=== PATIENT | male | born 1980 | race Caucasian/White ===

== ENCOUNTER 2018-09-14 22:26 | Inpatient (IN) ==
[2018-09-14] MEDS ORDERED: ceFAZolin 2 GM Premix Inj 2 GM/50 ML PIGGYBACK IV.SIG ONE (22:29)
[2018-09-14] MEDS ORDERED: Diphtheria/Tetanus/Pertussis Vaccine Inj 0.5 ML Syringe IM ONE (22:30)
[2018-09-14] MEDS ORDERED: Gentamicin/NS 80 mg Premix 100 ML IV.SIG ONE (22:30)
[2018-09-14] MEDS ORDERED: Propofol 1000 mg/100 ml Inj 1,000 MG/100 ML BOTTLE ONE (22:44)
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
--- NOTE | 2018-09-14 23:03 | ED ---
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 Ratio APTT (23.4-31.7) sec Puncture Site Left brachial Patient Temperature 98.6 O2 Saturation 96 (90-100) % ABG pH 7.43 H (7.380-7.420) ABG pCO2 35 L (38-42) mmHg ABG pO2 118 (61-120) mmHg ABG HCO3 23 (22-26) mmol/L ABG O2 Content 15.1 (12.0-20.0) Vol % ABG Base Excess -0.8 (-2-2) mmol/L ABG Methemoglobin 1.2 (0-2) % Humphrey Test Hemoglobin 11.0 L (12.0-16.0) G/DL Carboxyhemoglobin 1.5 (0-4) % O2 Delivery Device Ventilator Vent Setting 16/550/peep10/it1.0 Inspired O2 40 % Critical Value No POC Sodium (137-144) mmol/L Sodium 144 (136-145) meq/L POC Potassium (3.6-5.0) mmol/L Potassium 3.1 L (3.5-5.1) meq/L POC Chloride Chloride 110 H (98-107) meq/L Carbon Dioxide 24.8 (21.0-32.0) meq/L Anion Gap 9 (5-15) meq/L POC BUN (5-21) mg/dL BUN 10 (7-18) mg/dL Creatinine 0.69 (0.60-1.30) mg/dL POC Creatinine (0.6-1.3) mg/dL Estimated GFR Greater than 89 (>89) mL/min POC Glucose (68-110) mg/dL Random Glucose 113 H (74-106) mg/dL Calcium 8.4 L (8.5-10.1) mg/dL Calcium Adj for Albumin (8.5-10.1) mg/dL Magnesium 2.3 (1.5-2.5) mg/dL Total Bilirubin 0.9 (0.2-1.0) mg/dL AST 59 H (15-37) U/L ALT 47 (12-78) U/L Alkaline Phosphatase 93 (45-117) U/L Total Protein 6.1 L D (6.4-8.2) g/dL Albumin 2.1 L (3.4-5.0) g/dL Nasal Screen MRSA (PCR) (Negative) Blood Type Blood Type Recheck Antibody Screen MTS Gel Crossmatch Imaging Data Radiologist's impression: Ankle CT 09/14/18 00:00 CONCLUSION: 1. Comminuted and displaced oblique fracture of the distal fibular diaphysis. 2. Minimally displaced and impacted fracture of the distal process of the calcaneus with extension of the fracture into the calcaneocuboid joint. 3. Asymmetric widening of the tibiotalar joint suggesting partial talar dislocation. Chest X-Ray 09/14/18 00:00 CONCLUSION: No acute cardiopulmonary abnormality is identified. Elbow CT 09/14/18 00:00 CONCLUSION: 1. Comminuted displaced fracture of the proximal ulna involving both the olecranon and coronoid region. 2. Dislocated radial head. Humerus X-Ray 09/14/18 00:00 CONCLUSION: Comminuted displaced fractures of the proximal radius and ulna with surrounding soft tissue swelling. Knee CT 09/14/18 00:00 CONCLUSION: 1. No fracture is identified. 2. There is soft tissue wound/laceration along the lateral aspect of the knee with subcutaneous air. Pelvis X-Ray 09/14/18 00:00 CONCLUSION: Comminuted displaced right acetabular fracture with superior and lateral dislocation of the femoral head. Chest X-Ray 09/14/18 22:29 CONCLUSION: No acute cardiopulmonary abnormality is identified. Hip X-Ray 09/14/18 22:29 CONCLUSION: Comminuted displaced right acetabular fracture with superior and lateral migration/dislocation of the femoral head. Abdomen/Pelvis CT 09/14/18 22:55 CONCLUSION: 1. There is a small volume of acute blood products within the ileal mesentery, within the paracolic gutters, and in the dependent aspect of the pelvis. Exact etiology is uncertain and no solid organ injury. Given the blood products in the mesentery there is concern for mesenteric vascular injury although none is directly visualized. Suggest close clinical follow-up and consider follow-up abdomen and pelvis CT to evaluate for increased blood products. 2. Comminuted displaced fracture of the right superior and posterior acetabulum with superior dislocation of the femoral head. 3. Mildly displaced right lateral 10th rib fracture. Cervical Spine CT 09/14/18 22:56 CONCLUSION: 1. Possible nondisplaced fracture of the right anterior medial occipital condyle. 2. No other fracture or acute cervical spine abnormality is identified. 3. Ovoid rim calcified lesion in the left inferior neck most likely represents a rim calcified thyroid nodule. When patient condition permits suggest elective thyroid ultrasound for further evaluation. Chest CT 09/14/18 22:56 CONCLUSION: 1. Patchy airspace consolidation in the right upper lobe could represent pulmonary contusion. 2. There are nondisplaced right anterior sixth and seventh rib fractures. A few locules of pleural air are located inferiorly in the right pleural space. However, there is no significant pneumothorax. Head CT 09/14/18 22:56 CONCLUSION: No acute abnormality is identified. . Ankle X-Ray 09/15/18 00:00 CONCLUSION: No fracture is identified. There is dorsal foot soft tissue swelling. Ankle X-Ray 09/15/18 00:00 CONCLUSION: Acute displaced comminuted distal fibular diaphysis fracture, as above. The widening of the tibiotalar joint is no longer present. Ankle X-Ray 09/15/18 00:00 CONCLUSION: Transverse fracture of the distal diaphyseal portion of the fibula. There is only mildly displaced. Foot X-Ray 09/15/18 00:00 CONCLUSION: Comminuted mildly displaced fracture of the first digit distal phalanx with fracture line extension into the interphalangeal joint. Foot X-Ray 09/15/18 00:00 CONCLUSION: The calcaneus fracture documented on prior CT is not visible on this examination. No acute osseous abnormality is seen on this exam. Hip X-Ray 09/15/18 00:00 CONCLUSION: Relocation of the right femoral head. Fracture of the right acetabulum. Knee X-Ray 09/15/18 00:00 CONCLUSION: No fracture is identified. Chest X-Ray 09/15/18 06:37 CONCLUSION: ETT in good position Moderate gastric distention without nasogastric tube Pelvis X-Ray 09/17/18 00:00 CONCLUSION: Reasonable alignment in traction. Chest X-Ray 09/18/18 00:00 CONCLUSION: 1. ETT in good position. NGT beyond the GE junction. 2. Mild diffuse interstitial edema with patchy airspace disease in the right mid to lower lung zones. Hip X-Ray 09/18/18 00:00 CONCLUSION: Intraoperative spot images showing right acetabular fracture. Ankle X-Ray 09/19/18 00:00 CONCLUSION: Anatomic alignment in fiberglass. Pelvis X-Ray 09/19/18 00:00 CONCLUSION: Intraoperative images of the pelvis demonstrating internal fixation hardware at the acetabulum. Chest X-Ray 09/19/18 06:00 CONCLUSION: 1. Stable ETT and NGT. 2. Stable interstitial prominence with patchy medial bilateral upper lobe and right mid to lower lung zone airspace opacities. Chest X-Ray 09/19/18 16:50 CONCLUSION: 1. Left subclavian central venous catheter now in place with tip in the distal SVC. No evidence of pneumothorax. 2. New prominent left lower lobe consolidation versus atelectasis. Discharge Plan Discharge Disposition Patient Disposition: ED Admit(ED Internal Use Only) Discharge Order Discharge Orders: ED Use Only Admit Order (Routine); Ordered 09/14/18 Ordered By: Jorge Luis Castillo Physicians Team ED Provider: Jorge Luis Castillo Primary Care Provider: UNKNOWN, Attending Provider: Chris Lorenzo Other Providers: Steve Grant ; Sher Nicolas ; Chris Lorenzo ; Systems[employer] ; Brayan Billings ; Marizol Samaniego ; Smith Jaiems ; Lakshmi Saucedo ; Swathi Morales ; Lonnie Payne ; Hernesto Lee ; Jaymie Coughlin ; Michael Hearn ; Luciano De La Cruz Status ED Status: Left Department Discharge Information Discharge Date/Time: 09/15/18 04:57
[2018-09-14] MEDS ORDERED: fentaNYL Citrate Inj 100 MCG/2 ML Ampul ONE (23:04)
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
[2018-09-14 23:10] LABS: Baso # (Auto) 0.1 th/mm3 (0.0-0.2); Baso % (Auto) 0.4 % (0.0-2.0); Eos # (Auto) 0.1 th/mm3 (0.0-0.4); Eos % (Auto) 0.5 % (0.0-4.0); Hematocrit 40.4 % (39.0-51.0); Hemoglobin 13.6 gm/dL (13.0-17.0); Lymph # (Auto) 6.7 th/mm3 (1.0-4.8); Mean Corpuscular HGB Conc 33.6 % (32.0-36.0); Mean Corpuscular Hemoglobin 32.5 pg (27.0-34.0); Mean Corpuscular Volume 96.8 fL (80.0-100.0); Mean Platelet Volume 7.2 fL (7.0-11.0); Mono # (Auto) 0.8 th/mm3 (0.0-0.9); Mono % (Auto) 4.1 % (0.0-8.0); Platelet Count 368 th/mm3 (150-450); Red Blood Count 4.18 mil/mm3 (4.50-5.90); Red Cell Distribution Width 14.5 % (11.6-17.2); White Blood Count 19.8 th/mm3 (4.0-11.0)
[2018-09-14 23:43] LABS: Activated Partial Thrombo Time 21.6 sec (23.4-31.7); INR 1.1 Ratio; Prothrombin Time 10.7 sec (9.8-11.6)
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
[2018-09-15 00:21] LABS: Eosinophils 1 % (0-4); Lymphocytes 43 % (9-44); Monocytes 2 % (0-8); Platelet Estimate Normal (Normal); Platelet Morphology Normal (Normal)
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
[2018-09-15] MEDS: fentaNYL 10 mcg/mL Premix Drip 2,500 MCG/250 ML BAG IV.SIG PRN ×3 (01:00→22:48)
[2018-09-15] MEDS ORDERED: Propofol 1000 mg/100 ml Inj 1,000 MG/100 ML BOTTLE IV.CONT PRN (02:13)
[2018-09-15 02:27] LABS: ABG Base Excess -7.5 mmol/L (-2-2); ABG PCO2 40 mmHg (38-42); ABG PO2 454 mmHg (61-120)
[2018-09-15] MEDS: Midazolam 100 MG/100 ML Inj 100 MG/100 ML BAG IV.CONT PRN ×3 (03:21→22:52)
--- NOTE | 2018-09-15 03:53 | XR ---
EXAM DATE: 09/15/2018 3:46 AM EST AGE/SEX: 89 years / Male INDICATIONS: Right ankle pain and swelling. CLINICAL DATA: This is the patient's subsequent encounter. Patient reports that signs and symptoms h ave been present for 2 days and indicates a pain score of Nonresponsive. MEDICAL/SURGICAL HISTORY: Non-responsive. Non-responsive. COMPARISON: [facility] – [place], [place] ANKLE RIGHT W CONTRAST, 09/14/2018. . FINDINGS: AP and lateral views of the right ankle with overlying casting material in place demonstrate a commin uted mildly displaced fracture of the distal radial diaphysis with 3 mm medial displacement and 10 mm of posterior displacement of the distal fragment. The calcaneus fracture documented on the CT is not visible on this examination. Ankle mortise appears intact without widening of the tibiotalar joint. CONCLUSION: Acute displaced comminuted distal fibular diaphysis fracture, as above. The widening of the tibiotala r joint is no longer present. Electronically signed by: Oscar Zhang MD Board Certified Radiologist 09/15/2018 3:52 AM EST
--- NOTE | 2018-09-15 03:55 | XR ---
EXAM DATE: 09/15/2018 3:42 AM EST AGE/SEX: 89 years / Male INDICATIONS: Right foot pain and swelling. CLINICAL DATA: This is the patient's subsequent encounter. Patient reports that signs and symptoms h ave been present for 2 days and indicates a pain score of Nonresponsive. MEDICAL/SURGICAL HISTORY: Non-responsive. Non-responsive. COMPARISON: [facility] – [place], CT ANKLE RIGHT W CONTRAST, 09/14/2018. . FINDINGS: 4 views of the right foot with overlying casting material in place demonstrates no visible acute frac ture or dislocation. The calcaneus fracture documented on CT is not visible on this examination. Ther e are osteophytes at the tarsometatarsal joints. No radiopaque foreign body is identified. CONCLUSION: The calcaneus fracture documented on prior CT is not visible on this examination. No acute osseous ab normality is seen on this exam. Electronically signed by: Oscar Zhang MD Board Certified Radiologist 09/15/2018 3:54 AM EST
--- NOTE | 2018-09-15 03:56 | XR ---
EXAM DATE: 09/15/2018 3:47 AM EST AGE/SEX: 89 years / Male INDICATIONS: Left ankle pain and swelling. CLINICAL DATA: This is the patient's subsequent encounter. Patient reports that signs and symptoms h ave been present for 2 days and indicates a pain score of Nonresponsive. MEDICAL/SURGICAL HISTORY: Non-responsive. Non-responsive. COMPARISON: No prior studies are available for comparison. FINDINGS: 2 views of the left ankle demonstrate no fracture or dislocation. Ankle mortise is intact. There are sclerotic foci in the talus and calcaneus. There is a dorsal foot soft tissue swelling. No radiopaque foreign body is identified. CONCLUSION: No fracture is identified. There is dorsal foot soft tissue swelling. Electronically signed by: Oscar Zhang MD Board Certified Radiologist 09/15/2018 3:55 AM EST
--- NOTE | 2018-09-15 03:58 | XR ---
EXAM DATE: 09/15/2018 3:44 AM EST AGE/SEX: 89 years / Male INDICATIONS: Left foot pain and swelling. CLINICAL DATA: This is the patient's subsequent encounter. Patient reports that signs and symptoms h ave been present for 2 days and indicates a pain score of Nonresponsive. MEDICAL/SURGICAL HISTORY: Non-responsive. Non-responsive. COMPARISON: No prior exams available for comparison. FINDINGS: 2 views of the left foot demonstrate a comminuted mildly displaced fracture of the first digit distal phalanx involving the proximal metaphysis and epiphysis. Fracture line extends into the interphalang eal joint. There is surrounding soft tissue swelling. No other fracture or dislocation is identified. The sclerotic foci are present within the talus and calcaneus. There is dorsal foot soft tissue swel ling. CONCLUSION: Comminuted mildly displaced fracture of the first digit distal phalanx with fracture line extension i nto the interphalangeal joint. Electronically signed by: Oscar Zhang MD Board Certified Radiologist 09/15/2018 3:56 AM EST
--- NOTE | 2018-09-15 03:59 | XR ---
EXAM DATE: 09/15/2018 3:40 AM EST AGE/SEX: 89 years / Male INDICATIONS: Right knee pain. CLINICAL DATA: This is the patient's subsequent encounter. Patient reports that signs and symptoms h ave been present for 2 days and indicates a pain score of Nonresponsive. MEDICAL/SURGICAL HISTORY: Non-responsive. Non-responsive. [place] [facility] [place]/2018. . FINDINGS: AP and lateral views of the right knee demonstrate no acute fracture or dislocation. No joint effusio n is identified. There is a benign-appearing sclerotic focus within the lateral femoral condyle. No s oft tissue abnormality is appreciated. There is no radiopaque foreign body. CONCLUSION: No fracture is identified. Electronically signed by: Oscar Zhang MD Board Certified Radiologist 09/15/2018 3:58 AM EST
[2018-09-15] MEDS ORDERED: Vasopressin Inj 40 UNIT in Sodium Chlor 0.9% Inj 98 ML IV.CONT PRN (05:34)
[2018-09-15 05:52] LABS: Baso % (Auto) 0.2 % (0.0-2.0); Hematocrit 32.4 % (39.0-51.0); Hemoglobin 10.9 gm/dL (13.0-17.0); Lymph # (Auto) 2.8 th/mm3 (1.0-4.8); Lymph % (Auto) 20.5 % (9.0-44.0); Mean Corpuscular HGB Conc 33.6 % (32.0-36.0); Mean Corpuscular Hemoglobin 32.8 pg (27.0-34.0); Mean Corpuscular Volume 97.4 fL (80.0-100.0); Mean Platelet Volume 7.2 fL (7.0-11.0); Mono # (Auto) 1.9 th/mm3 (0.0-0.9); Mono % (Auto) 13.6 % (0.0-8.0); Neut # (Auto) 9.1 th/mm3 (1.8-7.7); Neut % (Auto) 65.7 % (16.0-70.0); Platelet Count 294 th/mm3 (150-450); Red Blood Count 3.32 mil/mm3 (4.50-5.90); Red Cell Distribution Width 14.6 % (11.6-17.2); White Blood Count 13.8 th/mm3 (4.0-11.0)
[2018-09-15 06:15] LABS: Calcium 7.5 mg/dL (8.5-10.1); Carbon Dioxide 16.1 meq/L (21.0-32.0)
[2018-09-15] MEDS ORDERED: Acetaminophen 325 MG Tablet PO PRN (06:31)
[2018-09-15] MEDS ORDERED: Sod Chloride 0.9% Inj 1,000 ML IV.CONT SCH (06:45)
--- NOTE | 2018-09-15 07:36 | XR ---
EXAM DATE: 09/15/2018 7:33 AM EST AGE/SEX: 89 years / Male INDICATIONS: Shortness of breath. CLINICAL DATA: This is the patient's subsequent encounter. Patient reports that signs and symptoms h ave been present for 1 day and indicates a pain score of Nonresponsive. MEDICAL/SURGICAL HISTORY: Non-responsive. Non-responsive. COMPARISON: [facility], CHEST 1V SINGLE AP, 09/14/2018. . FINDINGS: ET tube is in good position. There is no nasogastric tube. Moderate gastric distention is evident. Th e lungs are clear. There is no pneumothorax. There is no obvious displaced fracture. CONCLUSION: ETT in good position Moderate gastric distention without nasogastric tube Electronically signed by: Rick Valladares MD Board Certified Radiologist 09/15/2018 7:35 AM EST
[2018-09-15] MEDS ORDERED: ceFAZolin 2 GM IV; once IV.SIG SCH (09:00)
[2018-09-15] MEDS ORDERED: Post-op Orders (for Pharmacy) OTHER STA (09:05)
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
[2018-09-15] MEDS ORDERED: fentaNYL Citrate Inj 100 MCG/2 ML Ampul ONE (09:44)
[2018-09-15] MEDS ORDERED: ceFAZolin Inj 2,000 MG in Sodium Chlor 0.9% Inj 80 ML IV.SIG SCH (10:00)
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
[2018-09-15 11:25] LABS: Hematocrit 27.1 % (39.0-51.0); Hemoglobin 9.3 gm/dL (13.0-17.0)
[2018-09-15] MEDS: Oral Hygiene Kit OROPHARYNG SCH ×2 (12:00→18:05)
[2018-09-15 12:20] LABS: Calcium 6.5 mg/dL (8.5-10.1); Carbon Dioxide 17.5 meq/L (21.0-32.0); Potassium 3.7 meq/L (3.5-5.1)
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
[2018-09-15 12:30] LABS: Albumin 2.4 g/dL (3.4-5.0); Calcium-Albumin Corrected 7.8 mg/dL (8.5-10.1)
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
[2018-09-15] MEDS: Gentamicin/NS 80 mg Premix 100 ML IV.SIG SCH ×2 (13:54→18:04)
[2018-09-15] MEDS: Chlorhexidine 0.12% Oral Kit 15 ML UDC OROPHARYNG SCH ×2 (15:41→20:55)
[2018-09-15] MEDS: Multivitamin Inj 10 ML, Thiamine Inj 100 MG, Folic Acid Inj 1 MG in Sodium Chlor 0.9% I... IV.SIG SCH (15:42)
[2018-09-15] MEDS: Senna/Docusate Sodium 8.6/50 MG Tablet PO SCH ×2 (15:42→20:55)
[2018-09-15] MEDS ORDERED: Sodium Phosphate Inj 30 MMOL in Sodium Chlor 0.9% Inj 250 ML IV.SIG PRN (16:09)
[2018-09-15] MEDS ORDERED: Magnesium Sulfate Inj 2 GM in Sodium Chlor 0.9% Inj 96 ML IV.SIG PRN (16:09)
[2018-09-15] MEDS ORDERED: Potassium Phosphate 500 MG Soluble Tablet PO PRN ×2 (16:09)
[2018-09-15] MEDS ORDERED: Potassium Phosphate Inj 30 MMOL in Sodium Chlor 0.9% Inj 250 ML IV.SIG PRN (16:09)
[2018-09-15] MEDS ORDERED: Magnesium Sulfate Inj 4 GM in Sodium Chlor 0.9% Inj 92 ML IV.SIG PRN (16:09)
[2018-09-15] MEDS ORDERED: Potassium Chloride Liq 20 MEQ/15 ML UDC PO PRN ×2 (16:09)
[2018-09-15] MEDS ORDERED: Magnesium Oxide 400 MG Tablet PO PRN (16:09)
[2018-09-15] MEDS ORDERED: Potassium Chlor 40 mEq Premix 40 MEQ/100 ML PIGGYBACK IV.SIG PRN (16:09)
[2018-09-15] MEDS ORDERED: Potassium Chlor 20 mEq Premix 20 MEQ/100 ML PIGGYBACK IV.SIG PRN (16:09)
[2018-09-15] MEDS: ceFAZolin 2 GM Premix Inj 2 GM/50 ML PIGGYBACK IV.SIG SCH (18:05)
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
[2018-09-16] MEDS: ceFAZolin 2 GM Premix Inj 2 GM/50 ML PIGGYBACK IV.SIG SCH ×3 (00:57→17:01)
[2018-09-16] MEDS: Gentamicin/NS 80 mg Premix 100 ML IV.SIG SCH ×2 (00:58→08:44)
[2018-09-16] MEDS: Oral Hygiene Kit OROPHARYNG SCH ×4 (00:59→16:21)
[2018-09-16] MEDS: Chlorhexidine Gluconate 2% 1 Pack (2 Cloths) TOPICAL SCH (03:00)
[2018-09-16] MEDS ORDERED: Chlorhexidine Gluconate 2% 1 Pack (2 Cloths) TOPICAL PRN (04:00)
--- NOTE | 2018-09-16 06:46 | P.PNOP ---
Subjective Interval history: POD 1 s/p application of skeletal traction right acetabulum POD 1 s/p I&D right knee s/p right ankle injury intubated/sedated Physical Exam Vital signs: Vital Signs 09/15/18 07:23 09/15/18 07:43 09/15/18 08:00 Temperature Pulse Rate 112 H Respiratory Rate 18 18 Blood Pressure Pulse Oximetry 100 100 100 09/15/18 11:06 09/15/18 14:42 09/15/18 14:47 Temperature Pulse Rate 95 H 98 H 99 H Respiratory Rate 18 18 18 Blood Pressure 90/58 L 78/57 L Pulse Oximetry 100 100 100 09/15/18 14:52 09/15/18 14:57 09/15/18 14:59 Temperature Pulse Rate 98 H 97 H 98 H Respiratory Rate 18 18 18 Blood Pressure 86/57 L 79/53 L 83/57 L Pulse Oximetry 100 100 100 09/15/18 15:00 09/15/18 15:02 09/15/18 15:07 Temperature Pulse Rate 97 H 99 H 99 H Respiratory Rate 18 18 18 Blood Pressure 84/55 L 85/51 L Pulse Oximetry 100 100 100 09/15/18 15:12 09/15/18 15:16 09/15/18 15:17 Temperature Pulse Rate 110 H 106 H 107 H Respiratory Rate 18 17 17 Blood Pressure 117/57 L 115/58 L Pulse Oximetry 100 100 100 09/15/18 15:22 09/15/18 15:27 09/15/18 15:32 Temperature Pulse Rate 102 H 104 H 102 H Respiratory Rate 18 18 18 Blood Pressure 90/59 L 90/60 L 92/65 L Pulse Oximetry 100 100 100 09/15/18 15:37 09/15/18 15:42 09/15/18 15:47 Temperature Pulse Rate 101 H 102 H 103 H Respiratory Rate 18 18 18 Blood Pressure 104/66 99/61 L 96/63 L Pulse Oximetry 100 100 100 09/15/18 15:52 09/15/18 15:57 09/15/18 16:00 Temperature Pulse Rate 101 H 98 H 97 H Respiratory Rate 18 18 18 Blood Pressure 94/63 L 87/57 L Pulse Oximetry 100 100 100 09/15/18 16:02 09/15/18 16:07 09/15/18 16:12 Temperature Pulse Rate 94 H 98 H 95 H Respiratory Rate 18 18 18 Blood Pressure 102/65 97/57 L 98/62 L Pulse Oximetry 100 100 100 09/15/18 16:17 09/15/18 16:22 09/15/18 16:27 Temperature Pulse Rate 97 H 97 H 99 H Respiratory Rate 18 18 18 Blood Pressure 97/61 L 96/64 L 95/65 L Pulse Oximetry 100 100 100 09/15/18 16:32 09/15/18 16:37 09/15/18 16:42 Temperature 98.7 F Pulse Rate 99 H 99 H 99 H Respiratory Rate 18 18 18 Blood Pressure 98/64 L 94/55 L 102/61 Pulse Oximetry 100 100 100 09/15/18 16:47 09/15/18 16:52 09/15/18 16:57 Temperature Pulse Rate 100 H 101 H 105 H Respiratory Rate 18 18 18 Blood Pressure 100/59 L 93/53 L 91/54 L Pulse Oximetry 100 100 100 09/15/18 17:00 09/15/18 17:02 09/15/18 17:07 Temperature Pulse Rate 103 H 104 H 103 H Respiratory Rate 18 18 18 Blood Pressure 91/55 L 93/58 L Pulse Oximetry 100 100 100 09/15/18 17:12 09/15/18 17:17 09/15/18 17:19 Temperature Pulse Rate 101 H 100 H 98 H Respiratory Rate 18 18 18 Blood Pressure 94/54 L 82/52 L 85/52 L Pulse Oximetry 100 100 100 09/15/18 17:22 09/15/18 17:27 09/15/18 17:32 Temperature Pulse Rate 99 H 99 H 98 H Respiratory Rate 18 18 18 Blood Pressure 87/54 L 87/54 L 89/50 L Pulse Oximetry 100 100 100 09/15/18 17:37 09/15/18 17:42 09/15/18 17:47 Temperature Pulse Rate 100 H 99 H 99 H Respiratory Rate 18 18 18 Blood Pressure 91/53 L 102/57 L 93/55 L Pulse Oximetry 100 100 100 09/15/18 17:52 09/15/18 18:00 09/15/18 20:00 Temperature 99.5 F Pulse Rate 99 H 96 H Respiratory Rate 18 Blood Pressure 87/51 L 88/51 L Pulse Oximetry 100 09/15/18 20:21 09/15/18 20:25 09/15/18 23:24 Temperature Pulse Rate 97 H Respiratory Rate 18 19 18 Blood Pressure Pulse Oximetry 100 100 09/15/18 23:27 09/16/18 03:11 09/16/18 03:13 Temperature Pulse Rate 95 H 97 H Respiratory Rate 18 18 18 Blood Pressure Pulse Oximetry 100 09/16/18 04:07 09/16/18 04:12 09/16/18 04:17 Temperature 98.5 F Pulse Rate 100 H 101 H 99 H Respiratory Rate 18 18 18 Blood Pressure 112/62 104/59 L 104/59 L Pulse Oximetry 100 100 100 09/16/18 04:22 09/16/18 04:27 09/16/18 04:32 Temperature Pulse Rate 99 H 99 H 100 H Respiratory Rate 18 18 18 Blood Pressure 105/61 108/63 103/61 Pulse Oximetry 100 100 100 09/16/18 04:37 09/16/18 04:42 09/16/18 04:47 Temperature Pulse Rate 101 H 105 H 104 H Respiratory Rate 18 18 18 Blood Pressure 106/64 97/60 L 97/59 L Pulse Oximetry 100 100 100 09/16/18 04:52 09/16/18 04:57 09/16/18 05:00 Temperature Pulse Rate 101 H 108 H 102 H Respiratory Rate 18 18 18 Blood Pressure 103/63 102/67 Pulse Oximetry 100 100 100 09/16/18 05:02 09/16/18 05:07 09/16/18 05:12 Temperature Pulse Rate 104 H 105 H 101 H Respiratory Rate 18 18 18 Blood Pressure 103/66 99/61 L 98/62 L Pulse Oximetry 100 100 100 09/16/18 05:17 09/16/18 05:22 09/16/18 05:27 Temperature Pulse Rate 102 H 100 H 104 H Respiratory Rate 18 18 18 Blood Pressure 101/67 115/76 114/59 L Pulse Oximetry 100 100 100 09/16/18 05:32 09/16/18 05:37 09/16/18 05:42 Temperature Pulse Rate 103 H 100 H 99 H Respiratory Rate 18 18 18 Blood Pressure 104/61 109/62 110/63 Pulse Oximetry 100 100 100 09/16/18 05:47 09/16/18 05:52 09/16/18 05:57 Temperature Pulse Rate 98 H 98 H 98 H Respiratory Rate 18 18 18 Blood Pressure 106/64 105/65 107/66 Pulse Oximetry 100 100 100 09/16/18 06:00 09/16/18 06:02 Temperature Pulse Rate 99 H 99 H Respiratory Rate 18 18 Blood Pressure 106/66 Pulse Oximetry 100 100 Intake & Output 09/15/18 09/15/18 09/16/18 06:59 18:59 06:59 Intake Total 150 / 150 2050 / 2050 1500 / 1500 Output Total 850 / 850 1150 / 1150 750 / 750 Balance -700 / -700 900 / 900 750 / 750 Weight 83.1 kg Intake: IV 150 / 150 1250 / 1250 1500 / 1500 LR 1000 mL Inj 1,000 ML @ 125 1000 / 1000 1000 / 1000 mls/hr IV.CONT .Q8H APRIL Rx#: [id number] Versed Inj 100 mg In 100 ml @ 2 100 / 100 100 / 100 MG/HR 2 mls/hr IV.CONT TITRATE PRN Rx#:[id number] Gentamicin/NS 80 mg Premix 100 100 / 100 100 / 100 100 / 100 ML @ 200 mls/hr IV.SIG Q8H APRIL Rx#:[id number] Ancef 2 GM Premix Inj 2 gm In 50 / 50 50 / 50 50 / 50 50 ml @ 100 mls/hr IV.SIG Q8H APRIL Rx#:[id number] fentaNYL 10 mcg/mL Premix Drip 250 / 250 2,500 mcg In 250 ml @ 50 MCG/HR 5 mls/hr IV.SIG TITRATE PRN Rx #:[id number] Oral 0 / 0 0 / 0 0 / 0 Anesthesia Amount 800 / 800 Output: Estimated Blood Loss 100 / 100 Urine Amount (Catheter) 850 / 850 850 / 850 650 / 650 Indwelling Urethral Catheter 850 / 850 850 / 850 650 / 650 Gastric Drainage 200 / 200 100 / 100 Orogastric Tube 200 / 200 100 / 100 Other: Weight On Admission 83.1 kg Narrative: RLE: +skeletal traction. pin sites clean. +short leg splint. intact RUE: +long arm splint. intact - Urinary Catheter Management Indwelling Urethral Catheter Cath placed during this visit: yes Reason for continuing: Hourly intake/output Insertion date: 09/14/18 Insertion time: 00:00 Results - Labs CBC & Chem 7: 09/15/18 11:10 09/15/18 11:10 Laboratory Results - last 24 hr 09/15/18 09/15/18 09/15/18 11:10 11:10 16:00 Hgb 9.3 L Hct 27.1 L Sodium 146 H Potassium 3.7 Chloride 117 H Carbon Dioxide 17.5 L Anion Gap 12 BUN 13 Creatinine 1.01 Estimated GFR 64 L Random Glucose 106 Calcium 6.5 L* D Calcium Adj for Albumin 7.8 L Albumin 2.4 L Nasal Screen MRSA (PCR) Not detected - Imaging Impressions Ankle X-Ray 09/15/18 00:00 CONCLUSION: Transverse fracture of the distal diaphyseal portion of the fibula. There is only mildly displaced. Hip X-Ray 09/15/18 00:00 CONCLUSION: Relocation of the right femoral head. Fracture of the right acetabulum. Chest X-Ray 09/15/18 06:37 CONCLUSION: ETT in good position Moderate gastric distention without nasogastric tube Assessment and Plan - Assessment and Plan 1) right acetabular fracture dislocation s/p application of skeletal traction - POD 1 2) comminuted right proximal ulna fracture dislocation 3) right knee laceration s/p I&D and closure - POD 1 4) right fibula fracture with ankle subluxation s/p splinting - nonop 5) right foot cuboid fracture - nonop 6) left foot first toe distal phalanx fracture - nonop -NPO after MN -sign consents -potential surgery tomorrow with Rudy for ORIF right acetabulum if stable enough -patient will need to be stable enough to be placed in lateral position for 2hrs + in order to proceed -will check with trauma team today to make sure patient can handle that positioning at this point -will need definitive surgery on right elbow as well, but will perform after hip is done -maintain splint and dressings on right leg -maintain skeletal traction
[2018-09-16] MEDS: fentaNYL 10 mcg/mL Premix Drip 2,500 MCG/250 ML BAG IV.SIG PRN (07:38)
[2018-09-16] MEDS: Pantoprazole Inj 40 MG Vial IV.PUSH SCH ×2 (07:41→08:45)
[2018-09-16] MEDS: Chlorhexidine 0.12% Oral Kit 15 ML UDC OROPHARYNG SCH (07:42)
[2018-09-16] MEDS ORDERED: Phenylephrine/NS 1000 MCG/10ML Syringe IV.PUSH ONE (08:06)
[2018-09-16] MEDS ORDERED: Neostigmine Inj 5 MG/5 ML Syringe IV.PUSH ONE (08:06)
[2018-09-16] MEDS ORDERED: Sodium Chlor 0.9% Inj 250 ML IV.CONT ONE (08:06)
[2018-09-16] MEDS ORDERED: Lidocaine PF 1% Inj 5 ML Syringe INFILTRATN ONE (08:06)
[2018-09-16] MEDS ORDERED: Glycopyrrolate Inj 1 MG/5 ML Syringe IV.PUSH ONE (08:06)
[2018-09-16] MEDS: Midazolam 100 MG/100 ML Inj 100 MG/100 ML BAG IV.CONT PRN (08:44)
[2018-09-16] MEDS: Senna/Docusate Sodium 8.6/50 MG Tablet PO SCH ×2 (08:44→21:07)
--- NOTE | 2018-09-16 10:00 | P.PNNS ---
Subjective Interval history: intubated, sedated <Linda Michelle - Last Filed: 09/16/18 10:00> Physical Exam Vital signs: Vital Signs 09/15/18 11:06 09/15/18 14:42 09/15/18 14:47 Temperature Pulse Rate 95 H 98 H 99 H Respiratory Rate 18 18 18 Blood Pressure 90/58 L 78/57 L Pulse Oximetry 100 100 100 09/15/18 14:52 09/15/18 14:57 09/15/18 14:59 Temperature Pulse Rate 98 H 97 H 98 H Respiratory Rate 18 18 18 Blood Pressure 86/57 L 79/53 L 83/57 L Pulse Oximetry 100 100 100 09/15/18 15:00 09/15/18 15:02 09/15/18 15:07 Temperature Pulse Rate 97 H 99 H 99 H Respiratory Rate 18 18 18 Blood Pressure 84/55 L 85/51 L Pulse Oximetry 100 100 100 09/15/18 15:12 09/15/18 15:16 09/15/18 15:17 Temperature Pulse Rate 110 H 106 H 107 H Respiratory Rate 18 17 17 Blood Pressure 117/57 L 115/58 L Pulse Oximetry 100 100 100 09/15/18 15:22 09/15/18 15:27 09/15/18 15:32 Temperature Pulse Rate 102 H 104 H 102 H Respiratory Rate 18 18 18 Blood Pressure 90/59 L 90/60 L 92/65 L Pulse Oximetry 100 100 100 09/15/18 15:37 09/15/18 15:42 09/15/18 15:47 Temperature Pulse Rate 101 H 102 H 103 H Respiratory Rate 18 18 18 Blood Pressure 104/66 99/61 L 96/63 L Pulse Oximetry 100 100 100 09/15/18 15:52 09/15/18 15:57 09/15/18 16:00 Temperature Pulse Rate 101 H 98 H 97 H Respiratory Rate 18 18 18 Blood Pressure 94/63 L 87/57 L Pulse Oximetry 100 100 100 09/15/18 16:02 09/15/18 16:07 09/15/18 16:12 Temperature Pulse Rate 94 H 98 H 95 H Respiratory Rate 18 18 18 Blood Pressure 102/65 97/57 L 98/62 L Pulse Oximetry 100 100 100 09/15/18 16:17 09/15/18 16:22 09/15/18 16:27 Temperature Pulse Rate 97 H 97 H 99 H Respiratory Rate 18 18 18 Blood Pressure 97/61 L 96/64 L 95/65 L Pulse Oximetry 100 100 100 09/15/18 16:32 09/15/18 16:37 09/15/18 16:42 Temperature 98.7 F Pulse Rate 99 H 99 H 99 H Respiratory Rate 18 18 18 Blood Pressure 98/64 L 94/55 L 102/61 Pulse Oximetry 100 100 100 09/15/18 16:47 09/15/18 16:52 09/15/18 16:57 Temperature Pulse Rate 100 H 101 H 105 H Respiratory Rate 18 18 18 Blood Pressure 100/59 L 93/53 L 91/54 L Pulse Oximetry 100 100 100 09/15/18 17:00 09/15/18 17:02 09/15/18 17:07 Temperature Pulse Rate 103 H 104 H 103 H Respiratory Rate 18 18 18 Blood Pressure 91/55 L 93/58 L Pulse Oximetry 100 100 100 09/15/18 17:12 09/15/18 17:17 09/15/18 17:19 Temperature Pulse Rate 101 H 100 H 98 H Respiratory Rate 18 18 18 Blood Pressure 94/54 L 82/52 L 85/52 L Pulse Oximetry 100 100 100 09/15/18 17:22 09/15/18 17:27 09/15/18 17:32 Temperature Pulse Rate 99 H 99 H 98 H Respiratory Rate 18 18 18 Blood Pressure 87/54 L 87/54 L 89/50 L Pulse Oximetry 100 100 100 09/15/18 17:37 09/15/18 17:42 09/15/18 17:47 Temperature Pulse Rate 100 H 99 H 99 H Respiratory Rate 18 18 18 Blood Pressure 91/53 L 102/57 L 93/55 L Pulse Oximetry 100 100 100 09/15/18 17:52 09/15/18 18:00 09/15/18 20:00 Temperature 99.5 F Pulse Rate 99 H 96 H Respiratory Rate 18 Blood Pressure 87/51 L 88/51 L Pulse Oximetry 100 09/15/18 20:21 09/15/18 20:25 09/15/18 23:24 Temperature Pulse Rate 97 H Respiratory Rate 18 19 18 Blood Pressure Pulse Oximetry 100 100 09/15/18 23:27 09/16/18 03:11 09/16/18 03:13 Temperature Pulse Rate 95 H 97 H Respiratory Rate 18 18 18 Blood Pressure Pulse Oximetry 100 09/16/18 04:07 09/16/18 04:12 09/16/18 04:17 Temperature 98.5 F Pulse Rate 100 H 101 H 99 H Respiratory Rate 18 18 18 Blood Pressure 112/62 104/59 L 104/59 L Pulse Oximetry 100 100 100 09/16/18 04:22 09/16/18 04:27 09/16/18 04:32 Temperature Pulse Rate 99 H 99 H 100 H Respiratory Rate 18 18 18 Blood Pressure 105/61 108/63 103/61 Pulse Oximetry 100 100 100 09/16/18 04:37 09/16/18 04:42 09/16/18 04:47 Temperature Pulse Rate 101 H 105 H 104 H Respiratory Rate 18 18 18 Blood Pressure 106/64 97/60 L 97/59 L Pulse Oximetry 100 100 100 09/16/18 04:52 09/16/18 04:57 09/16/18 05:00 Temperature Pulse Rate 101 H 108 H 102 H Respiratory Rate 18 18 18 Blood Pressure 103/63 102/67 Pulse Oximetry 100 100 100 09/16/18 05:02 09/16/18 05:07 09/16/18 05:12 Temperature Pulse Rate 104 H 105 H 101 H Respiratory Rate 18 18 18 Blood Pressure 103/66 99/61 L 98/62 L Pulse Oximetry 100 100 100 09/16/18 05:17 09/16/18 05:22 09/16/18 05:27 Temperature Pulse Rate 102 H 100 H 104 H Respiratory Rate 18 18 18 Blood Pressure 101/67 115/76 114/59 L Pulse Oximetry 100 100 100 09/16/18 05:32 09/16/18 05:37 09/16/18 05:42 Temperature Pulse Rate 103 H 100 H 99 H Respiratory Rate 18 18 18 Blood Pressure 104/61 109/62 110/63 Pulse Oximetry 100 100 100 09/16/18 05:47 09/16/18 05:52 09/16/18 05:57 Temperature Pulse Rate 98 H 98 H 98 H Respiratory Rate 18 18 18 Blood Pressure 106/64 105/65 107/66 Pulse Oximetry 100 100 100 09/16/18 06:00 09/16/18 06:02 09/16/18 06:12 Temperature Pulse Rate 99 H 99 H 99 H Respiratory Rate 18 18 18 Blood Pressure 106/66 110/66 Pulse Oximetry 100 100 100 09/16/18 06:22 09/16/18 06:32 09/16/18 06:47 Temperature Pulse Rate 104 H 117 H 105 H Respiratory Rate 19 22 18 Blood Pressure 111/73 119/67 113/65 Pulse Oximetry 100 99 100 09/16/18 07:00 09/16/18 07:17 09/16/18 07:23 Temperature Pulse Rate 105 H 109 H 111 H Respiratory Rate 18 18 Blood Pressure 114/67 108/64 Pulse Oximetry 98 100 100 09/16/18 07:32 09/16/18 07:42 09/16/18 08:00 Temperature 100.3 F H Pulse Rate 118 H 114 H 110 H Respiratory Rate 18 Blood Pressure 114/71 111/59 L 105/58 L Pulse Oximetry 100 100 100 Intake & Output 09/15/18 09/16/18 09/16/18 18:59 06:59 18:59 Intake Total 2050 / 2050 1500 / 1500 700 / 700 Output Total 1150 / 1150 750 / 750 Balance 900 / 900 750 / 750 700 / 700 Intake: IV 1250 / 1250 1500 / 1500 700 / 700 LR 1000 mL Inj 1,000 ML @ 125 1000 / 1000 1000 / 1000 mls/hr IV.CONT .Q8H APRIL Rx#: [id number] Versed Inj 100 mg In 100 ml @ 2 100 / 100 100 / 100 100 / 100 MG/HR 2 mls/hr IV.CONT TITRATE PRN Rx#:[id number] Gentamicin/NS 80 mg Premix 100 100 / 100 100 / 100 100 / 100 ML @ 200 mls/hr IV.SIG Q8H APRIL Rx#:[id number] Levophed-Dextrose 4 mg/250 ml 250 / 250 Drip 4 mg In 250 ml @ 2 MCG/MIN 7.5 mls/hr IV.SIG TITRATE PRN Rx#:[id number] Ancef 2 GM Premix Inj 2 gm In 50 / 50 50 / 50 50 ml @ 100 mls/hr IV.SIG Q8H APRIL Rx#:[id number] fentaNYL 10 mcg/mL Premix Drip 250 / 250 250 / 250 2,500 mcg In 250 ml @ 50 MCG/HR 5 mls/hr IV.SIG TITRATE PRN Rx #:[id number] Oral 0 / 0 0 / 0 Anesthesia Amount 800 / 800 Output: Estimated Blood Loss 100 / 100 Urine Amount (Catheter) 850 / 850 650 / 650 Indwelling Urethral Catheter 850 / 850 650 / 650 Gastric Drainage 200 / 200 100 / 100 Orogastric Tube 200 / 200 100 / 100 Narrative: Intubated and sedated on fentanyl and versed drowsy from sedation but easily opens eyes when stimulated PERRL Right leg in orthopedic contraption suspended nursing reports when sedation held, attempting to sit up in bed, had gripped to command and wiggled toes to command - Urinary Catheter Management Indwelling Urethral Catheter Cath placed during this visit: yes Reason for continuing: Hourly intake/output Insertion date: 09/14/18 Insertion time: 00:00 <Linda Michelle - Last Filed: 09/16/18 10:00> Vital signs: Vital Signs 09/15/18 16:42 09/15/18 16:47 09/15/18 16:52 Temperature Pulse Rate 99 H 100 H 101 H Respiratory Rate 18 18 18 Blood Pressure 102/61 100/59 L 93/53 L Pulse Oximetry 100 100 100 09/15/18 16:57 09/15/18 17:00 09/15/18 17:02 Temperature Pulse Rate 105 H 103 H 104 H Respiratory Rate 18 18 18 Blood Pressure 91/54 L 91/55 L Pulse Oximetry 100 100 100 09/15/18 17:07 09/15/18 17:12 09/15/18 17:17 Temperature Pulse Rate 103 H 101 H 100 H Respiratory Rate 18 18 18 Blood Pressure 93/58 L 94/54 L 82/52 L Pulse Oximetry 100 100 100 09/15/18 17:19 09/15/18 17:22 09/15/18 17:27 Temperature Pulse Rate 98 H 99 H 99 H Respiratory Rate 18 18 18 Blood Pressure 85/52 L 87/54 L 87/54 L Pulse Oximetry 100 100 100 09/15/18 17:32 09/15/18 17:37 09/15/18 17:42 Temperature Pulse Rate 98 H 100 H 99 H Respiratory Rate 18 18 18 Blood Pressure 89/50 L 91/53 L 102/57 L Pulse Oximetry 100 100 100 09/15/18 17:47 09/15/18 17:52 09/15/18 18:00 Temperature 99.5 F Pulse Rate 99 H 99 H Respiratory Rate 18 18 Blood Pressure 93/55 L 87/51 L 88/51 L Pulse Oximetry 100 100 09/15/18 20:00 09/15/18 20:21 09/15/18 20:25 Temperature Pulse Rate 96 H 97 H Respiratory Rate 18 19 Blood Pressure Pulse Oximetry 100 09/15/18 23:24 09/15/18 23:27 09/16/18 03:11 Temperature Pulse Rate 95 H Respiratory Rate 18 18 18 Blood Pressure Pulse Oximetry 100 100 09/16/18 03:13 09/16/18 04:07 09/16/18 04:12 Temperature 98.5 F Pulse Rate 97 H 100 H 101 H Respiratory Rate 18 18 18 Blood Pressure 112/62 104/59 L Pulse Oximetry 100 100 09/16/18 04:17 09/16/18 04:22 09/16/18 04:27 Temperature Pulse Rate 99 H 99 H 99 H Respiratory Rate 18 18 18 Blood Pressure 104/59 L 105/61 108/63 Pulse Oximetry 100 100 100 09/16/18 04:32 09/16/18 04:37 09/16/18 04:42 Temperature Pulse Rate 100 H 101 H 105 H Respiratory Rate 18 18 18 Blood Pressure 103/61 106/64 97/60 L Pulse Oximetry 100 100 100 09/16/18 04:47 09/16/18 04:52 09/16/18 04:57 Temperature Pulse Rate 104 H 101 H 108 H Respiratory Rate 18 18 18 Blood Pressure 97/59 L 103/63 102/67 Pulse Oximetry 100 100 100 09/16/18 05:00 09/16/18 05:02 09/16/18 05:07 Temperature Pulse Rate 102 H 104 H 105 H Respiratory Rate 18 18 18 Blood Pressure 103/66 99/61 L Pulse Oximetry 100 100 100 09/16/18 05:12 09/16/18 05:17 09/16/18 05:22 Temperature Pulse Rate 101 H 102 H 100 H Respiratory Rate 18 18 18 Blood Pressure 98/62 L 101/67 115/76 Pulse Oximetry 100 100 100 09/16/18 05:27 09/16/18 05:32 09/16/18 05:37 Temperature Pulse Rate 104 H 103 H 100 H Respiratory Rate 18 18 18 Blood Pressure 114/59 L 104/61 109/62 Pulse Oximetry 100 100 100 09/16/18 05:42 09/16/18 05:47 09/16/18 05:52 Temperature Pulse Rate 99 H 98 H 98 H Respiratory Rate 18 18 18 Blood Pressure 110/63 106/64 105/65 Pulse Oximetry 100 100 100 09/16/18 05:57 09/16/18 06:00 09/16/18 06:02 Temperature Pulse Rate 98 H 99 H 99 H Respiratory Rate 18 18 18 Blood Pressure 107/66 106/66 Pulse Oximetry 100 100 100 09/16/18 06:12 09/16/18 06:22 09/16/18 06:32 Temperature Pulse Rate 99 H 104 H 117 H Respiratory Rate 18 19 22 Blood Pressure 110/66 111/73 119/67 Pulse Oximetry 100 100 99 09/16/18 06:47 09/16/18 07:00 09/16/18 07:17 Temperature Pulse Rate 105 H 105 H 109 H Respiratory Rate 18 18 Blood Pressure 113/65 114/67 108/64 Pulse Oximetry 100 98 100 09/16/18 07:23 09/16/18 07:32 09/16/18 07:42 Temperature Pulse Rate 111 H 118 H 114 H Respiratory Rate 18 Blood Pressure 114/71 111/59 L Pulse Oximetry 100 100 100 09/16/18 08:00 09/16/18 08:15 09/16/18 08:30 Temperature 100.3 F H Pulse Rate 110 H 109 H 108 H Respiratory Rate 18 18 18 Blood Pressure 105/58 L 109/60 107/57 L Pulse Oximetry 100 100 100 09/16/18 08:45 09/16/18 09:00 09/16/18 09:15 Temperature Pulse Rate 108 H 107 H 108 H Respiratory Rate 18 18 18 Blood Pressure 109/59 L 110/57 L 108/59 L Pulse Oximetry 100 100 100 09/16/18 09:30 09/16/18 09:45 09/16/18 10:00 Temperature Pulse Rate 108 H 110 H 127 H Respiratory Rate 18 10 L 12 Blood Pressure 99/57 L 112/61 114/62 Pulse Oximetry 100 100 100 09/16/18 10:15 09/16/18 10:19 09/16/18 10:30 Temperature Pulse Rate 140 H 148 H Respiratory Rate 12 14 Blood Pressure 135/77 146/77 H Pulse Oximetry 96 72 L 09/16/18 10:32 09/16/18 10:45 09/16/18 11:00 Temperature Pulse Rate 152 H 143 H Respiratory Rate 22 19 Blood Pressure 154/91 H 110/59 L Pulse Oximetry 76 L 100 99 09/16/18 11:15 09/16/18 11:30 09/16/18 11:45 Temperature Pulse Rate 139 H 134 H 147 H Respiratory Rate 24 17 22 Blood Pressure 110/59 L 114/58 L 119/76 Pulse Oximetry 99 93 L 94 L 09/16/18 12:00 09/16/18 12:30 09/16/18 12:45 Temperature 100.7 F H Pulse Rate 121 H 109 H 104 H Respiratory Rate 16 14 13 Blood Pressure 98/56 L 85/51 L 88/51 L Pulse Oximetry 93 L 93 L 91 L 09/16/18 13:00 09/16/18 13:15 09/16/18 13:30 Temperature Pulse Rate 100 H 97 H 95 H Respiratory Rate 14 12 13 Blood Pressure 82/47 L 88/53 L 95/52 L Pulse Oximetry 94 L 96 95 09/16/18 13:45 09/16/18 14:00 09/16/18 14:15 Temperature Pulse Rate 93 H 93 H 92 H Respiratory Rate 13 15 13 Blood Pressure 90/50 L 81/53 L 94/65 L Pulse Oximetry 96 100 98 09/16/18 14:30 09/16/18 14:45 09/16/18 15:00 Temperature Pulse Rate 106 H 108 H 91 H Respiratory Rate 18 20 14 Blood Pressure 105/65 100/62 99/54 L Pulse Oximetry 96 97 97 09/16/18 15:15 09/16/18 15:30 09/16/18 15:49 Temperature Pulse Rate 90 91 H 92 H Respiratory Rate 15 15 17 Blood Pressure 92/52 L 85/52 L 85/52 L Pulse Oximetry 100 97 98 09/16/18 16:00 Temperature 98.6 F Pulse Rate 93 H Respiratory Rate 16 Blood Pressure 104/52 L Pulse Oximetry 95 Intake & Output 09/15/18 09/16/18 09/16/18 18:59 06:59 18:59 Intake Total 2049 / 2049 1500 / 1500 2433 / 2433 Output Total 1150 / 1150 750 / 750 Balance 900 / 900 750 / 750 2433 / 2433 Intake: IV 1250 / 1250 1500 / 1500 2433 / 2433 Precedex Inj 200 MCG In NS Inj 96 / 96 48 ML @ 0.2 MCG/KG/HR 4.15 mls/ hr IV.CONT TITRATE PRN Rx#: [id number] LR 1000 mL Inj 1,000 ML @ 125 1000 / 1000 1000 / 1000 1000 / 1000 mls/hr IV.CONT .Q8H APRIL Rx#: [id number] Versed Inj 100 mg In 100 ml @ 2 100 / 100 100 / 100 112 / 112 MG/HR 2 mls/hr IV.CONT TITRATE PRN Rx#:[id number] Gentamicin/NS 80 mg Premix 100 100 / 100 100 / 100 100 / 100 ML @ 200 mls/hr IV.SIG Q8H APRIL Rx#:[id number] MVI-12 Inj 10 ML Thiamine Inj 520 / 520 100 MG Folvite Inj 1 MG In NS Inj 500 ML @ 125 mls/hr IV.SIG Q24H APRIL Rx#:[id number] Levophed-Dextrose 4 mg/250 ml 250 / 250 Drip 4 mg In 250 ml @ 2 MCG/MIN 7.5 mls/hr IV.SIG TITRATE PRN Rx#:[id number] Ancef 2 GM Premix Inj 2 gm In 50 / 50 50 / 50 50 / 50 50 ml @ 100 mls/hr IV.SIG Q8H APRIL Rx#:[id number] fentaNYL 10 mcg/mL Premix Drip 250 / 250 305 / 305 2,500 mcg In 250 ml @ 50 MCG/HR 5 mls/hr IV.SIG TITRATE PRN Rx #:[id number] Oral 0 / 0 0 / 0 Anesthesia Amount 800 / 800 Output: Estimated Blood Loss 100 / 100 Urine Amount (Catheter) 850 / 850 650 / 650 Indwelling Urethral Catheter 850 / 850 650 / 650 Gastric Drainage 200 / 200 100 / 100 Orogastric Tube 200 / 200 100 / 100 - Urinary Catheter Management Indwelling Urethral Catheter Cath placed during this visit: no <Michael Hearn - Last Filed: 09/16/18 16:41> Assessment and Plan - Plan Young male with occipital condyle fracture, mult orthopedic injuries, negative head CT Plan: will continue cervical bracing with [place] J collar x 6 weeks cont critical trauma care will be signing off, call if needed <Linda Michelle - Last Filed: 09/16/18 10:00> - Attending Attestation The exam, history, and the medical decision-making described in the above note were completed with the assistance of the mid-level provider. I reviewed and agree with the findings presented. I attest that I had a [id number] encounter with the patient on the same day, and personally performed and documented my assessment and findings in the medical record. <Michael Hearn - Last Filed: 09/16/18 16:41>
[2018-09-16] MEDS ORDERED: Naloxone Inj 0.4 MG/ML Vial ONE (10:36)
[2018-09-16] MEDS: Dexmedetomidine Inj 200 MCG in Sodium Chlor 0.9% Inj 48 ML IV.CONT PRN ×5 (10:50→20:19)
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
[2018-09-16] MEDS: Multivitamin Inj 10 ML, Thiamine Inj 100 MG, Folic Acid Inj 1 MG in Sodium Chlor 0.9% I... IV.SIG SCH (12:00)
[2018-09-16] MEDS ORDERED: Naloxone Inj 0.4 MG/ML Vial IV.PUSH ONE (12:45)
[2018-09-16 14:30] LABS: Albumin 2.2 g/dL (3.4-5.0); Calcium 7.1 mg/dL (8.5-10.1); Carbon Dioxide 25.6 meq/L (21.0-32.0); Potassium 3.6 meq/L (3.5-5.1)
[2018-09-16 14:32] LABS: Total Protein 5.3 g/dL (6.4-8.2)
[2018-09-16 15:35] LABS: Baso # (Auto) 0.1 th/mm3 (0.0-0.2); Baso % (Auto) 0.4 % (0.0-2.0); Eos % (Auto) 0.1 % (0.0-4.0); Hematocrit 22.9 % (39.0-51.0); Hemoglobin 7.9 gm/dL (13.0-17.0); Lymph # (Auto) 1.2 th/mm3 (1.0-4.8); Lymph % (Auto) 9.5 % (9.0-44.0); Mean Corpuscular HGB Conc 34.5 % (32.0-36.0); Mean Corpuscular Hemoglobin 33.6 pg (27.0-34.0); Mean Corpuscular Volume 97.4 fL (80.0-100.0); Mean Platelet Volume 7.7 fL (7.0-11.0); Mono # (Auto) 0.8 th/mm3 (0.0-0.9); Mono % (Auto) 6.4 % (0.0-8.0); Neut # (Auto) 10.9 th/mm3 (1.8-7.7); Neut % (Auto) 83.6 % (16.0-70.0); Platelet Count 187 th/mm3 (150-450); Red Blood Count 2.35 mil/mm3 (4.50-5.90); Red Cell Distribution Width 13.9 % (11.6-17.2)
[2018-09-16] MEDS ORDERED: Valproate Inj 500 MG in Sodium Chlor 0.9% Inj 100 ML IV.SIG SCH (19:00)
[2018-09-16 23:53] LABS: Hematocrit 26.9 % (39.0-51.0); Hemoglobin 9.3 gm/dL (13.0-17.0); Mean Corpuscular HGB Conc 34.5 % (32.0-36.0); Mean Corpuscular Hemoglobin 32.6 pg (27.0-34.0); Mean Corpuscular Volume 94.5 fL (80.0-100.0); Mean Platelet Volume 7.8 fL (7.0-11.0); Platelet Count 161 th/mm3 (150-450); Red Blood Count 2.85 mil/mm3 (4.50-5.90); Red Cell Distribution Width 14.5 % (11.6-17.2); White Blood Count 12.6 th/mm3 (4.0-11.0)
[2018-09-17] MEDS: ceFAZolin 2 GM Premix Inj 2 GM/50 ML PIGGYBACK IV.SIG SCH ×2 (00:19→10:46)
[2018-09-17] MEDS: Haloperidol Inj 5 MG/ML Ampul IV.PUSH PRN ×4 (00:48→23:58)
[2018-09-17 05:26] LABS: Baso % (Auto) 0.3 % (0.0-2.0); Eos # (Auto) 0.1 th/mm3 (0.0-0.4); Eos % (Auto) 0.8 % (0.0-4.0); Hematocrit 25.3 % (39.0-51.0); Hemoglobin 8.8 gm/dL (13.0-17.0); Lymph # (Auto) 1.4 th/mm3 (1.0-4.8); Mean Corpuscular HGB Conc 34.8 % (32.0-36.0); Mean Corpuscular Hemoglobin 32.5 pg (27.0-34.0); Mean Corpuscular Volume 93.6 fL (80.0-100.0); Mean Platelet Volume 7.9 fL (7.0-11.0); Mono # (Auto) 0.7 th/mm3 (0.0-0.9); Mono % (Auto) 5.4 % (0.0-8.0); Neut # (Auto) 11.3 th/mm3 (1.8-7.7); Neut % (Auto) 83.5 % (16.0-70.0); Platelet Count 157 th/mm3 (150-450); Red Cell Distribution Width 14.8 % (11.6-17.2); White Blood Count 13.5 th/mm3 (4.0-11.0)
[2018-09-17] MEDS: Pantoprazole Inj 40 MG Vial IV.PUSH SCH (06:27)
[2018-09-17] MEDS: Chlorhexidine Gluconate 2% 1 Pack (2 Cloths) TOPICAL SCH (06:27)
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
[2018-09-17] MEDS: Dexmedetomidine Inj 1,000 MCG in Sodium Chlor 0.9% Inj 240 ML IV.CONT PRN ×3 (08:15→17:50)
--- NOTE | 2018-09-17 08:18 | XR ---
EXAM DATE: 09/17/2018 8:14 AM EST AGE/SEX: 37 years / Male INDICATIONS: Evaluate fracture. CLINICAL DATA: This is the patient's subsequent encounter. Patient reports that signs and symptoms h ave been present for 4 - 6 days and indicates a pain score of Nonresponsive. MEDICAL/SURGICAL HISTORY: Non-responsive. Non-responsive. COMPARISON: [facility], HIP RIGHT AP ONLY 1V, 09/14/2018. . FINDINGS: . Right acetabular fracture is in reasonable alignment in traction. The femoral head and neck are int act. Left hemipelvis is intact. CONCLUSION: Reasonable alignment in traction. Electronically signed by: Rick Valladares MD Board Certified Radiologist 09/17/2018 8:16 AM EST
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
[2018-09-17] MEDS: Senna/Docusate Sodium 8.6/50 MG Tablet PO SCH ×2 (10:46→20:10)
[2018-09-17] MEDS: Enoxaparin Inj 30 MG/0.3 ML Syringe SQ SCH (11:59)
[2018-09-17] MEDS: QUEtiapine 25 MG Tablet PO SCH ×2 (12:00→17:39)
[2018-09-17] MEDS: Multivitamin Inj 10 ML, Thiamine Inj 100 MG, Folic Acid Inj 1 MG in Sodium Chlor 0.9% I... IV.SIG SCH (12:44)
[2018-09-17] MEDS: HYDROmorphone PF Inj 0.5 MG/0.5 ML Syringe IV.PUSH PRN ×2 (17:40→23:32)
[2018-09-17] MEDS: QUEtiapine 100 MG Tablet PO SCH (20:10)
--- NOTE | 2018-09-17 21:39 | ECG ---
Date Performed: 09/16/2018 Time Performed: 16:41:50 PTAGE: 37 years EKG: Sinus rhythm Lead V3 artifact, otherwise normal ECG NO PREVIOUS TRACING DOCTOR: Abel Lopez Interpretating Date/Time 09/17/2018 21:38:29
[2018-09-18] MEDS: Dexmedetomidine Inj 1,000 MCG in Sodium Chlor 0.9% Inj 240 ML IV.CONT PRN (01:42)
[2018-09-18] MEDS: HYDROmorphone PF Inj 0.5 MG/0.5 ML Syringe IV.PUSH PRN (03:18)
[2018-09-18] MEDS: Chlorhexidine Gluconate 2% 1 Pack (2 Cloths) TOPICAL SCH (03:35)
[2018-09-18 04:40] LABS: Baso # (Auto) 0.1 th/mm3 (0.0-0.2); Baso % (Auto) 0.5 % (0.0-2.0); Eos # (Auto) 0.4 th/mm3 (0.0-0.4); Eos % (Auto) 3.4 % (0.0-4.0); Hematocrit 26.2 % (39.0-51.0); Hemoglobin 9.1 gm/dL (13.0-17.0); Lymph # (Auto) 1.6 th/mm3 (1.0-4.8); Lymph % (Auto) 12.4 % (9.0-44.0); Mean Corpuscular HGB Conc 34.7 % (32.0-36.0); Mean Corpuscular Hemoglobin 32.6 pg (27.0-34.0); Mean Corpuscular Volume 93.9 fL (80.0-100.0); Mean Platelet Volume 7.8 fL (7.0-11.0); Mono # (Auto) 0.8 th/mm3 (0.0-0.9); Mono % (Auto) 6.2 % (0.0-8.0); Neut # (Auto) 9.7 th/mm3 (1.8-7.7); Neut % (Auto) 77.5 % (16.0-70.0); Platelet Count 188 th/mm3 (150-450); Red Blood Count 2.79 mil/mm3 (4.50-5.90); Red Cell Distribution Width 14.6 % (11.6-17.2); White Blood Count 12.6 th/mm3 (4.0-11.0)
[2018-09-18] MEDS: Pantoprazole Inj 40 MG Vial IV.PUSH SCH (06:04)
[2018-09-18] MEDS: QUEtiapine 25 MG Tablet PO SCH ×2 (06:05→13:27)
[2018-09-18] MEDS ORDERED: Gelatin Size 100 Topical Foam ONE (06:29)
[2018-09-18] MEDS ORDERED: Thrombin Topical Soln 5,000 UNIT Vial TOPICAL ONE (06:29)
[2018-09-18] MEDS ORDERED: Tobramycin Sulfate 1,200 MG Vial (for ortho/sterile core) OTHER ONE (06:29)
--- NOTE | 2018-09-18 06:44 | P.PNOP ---
Subjective Interval history: Clinical condition with oxygen mask. Remains in skeletal traction Physical Exam Vital signs: Vital Signs 09/17/18 07:00 09/17/18 07:30 09/17/18 08:00 Temperature 97.8 F Pulse Rate 69 72 76 Respiratory Rate 15 19 22 Blood Pressure 134/65 129/81 142/73 H Pulse Oximetry 96 96 91 L 09/17/18 08:04 09/17/18 08:30 09/17/18 09:00 Temperature Pulse Rate 75 90 87 Respiratory Rate 20 24 18 Blood Pressure 145/69 H Pulse Oximetry 94 L 97 96 09/17/18 10:00 09/17/18 11:00 09/17/18 11:06 Temperature Pulse Rate 83 78 83 Respiratory Rate 20 24 24 Blood Pressure 171/79 H Pulse Oximetry 92 L 93 L 94 L 09/17/18 12:00 09/17/18 12:15 09/17/18 13:00 Temperature 97.5 F L Pulse Rate 86 91 H 89 Respiratory Rate 22 30 H 24 Blood Pressure 173/86 H 174/84 H Pulse Oximetry 97 95 94 L 09/17/18 14:00 09/17/18 15:00 09/17/18 15:28 Temperature Pulse Rate 87 79 79 Respiratory Rate 24 18 19 Blood Pressure 175/79 H 178/78 H Pulse Oximetry 95 95 09/17/18 16:00 09/17/18 16:08 09/17/18 17:00 Temperature 97.6 F Pulse Rate 80 80 71 Respiratory Rate 18 19 23 Blood Pressure 183/80 H 180/79 H Pulse Oximetry 96 95 94 L 09/17/18 17:13 09/17/18 17:16 09/17/18 18:00 Temperature Pulse Rate 88 81 Respiratory Rate 33 H 19 Blood Pressure 183/99 H 157/71 H Pulse Oximetry 94 L 94 L 90 L 09/17/18 19:00 09/17/18 19:03 09/17/18 19:37 Temperature Pulse Rate 91 H 96 H 86 Respiratory Rate 18 26 H 24 Blood Pressure 167/123 H 130/68 Pulse Oximetry 89 L 88 L 92 L 09/17/18 20:00 09/17/18 21:00 09/17/18 22:00 Temperature 97.8 F Pulse Rate 95 H 92 H 88 Respiratory Rate 25 H 24 25 H Blood Pressure 187/88 H 186/86 H 191/74 H Pulse Oximetry 90 L 92 L 91 L 09/17/18 23:00 09/17/18 23:38 09/17/18 23:48 Temperature Pulse Rate 98 H 91 H Respiratory Rate 26 H 26 H Blood Pressure 185/96 H Pulse Oximetry 89 L 95 09/18/18 00:00 09/18/18 01:00 09/18/18 02:00 Temperature 98.4 F Pulse Rate 106 H 81 84 Respiratory Rate 26 H 24 22 Blood Pressure 182/73 H 164/75 H 163/92 H Pulse Oximetry 91 L 95 94 L 09/18/18 03:00 09/18/18 04:00 09/18/18 04:44 Temperature 98.4 F Pulse Rate 78 85 97 H Respiratory Rate 23 21 28 H Blood Pressure 182/85 H 160/70 H Pulse Oximetry 96 96 09/18/18 05:00 09/18/18 06:00 Temperature Pulse Rate 104 H 97 H Respiratory Rate 20 23 Blood Pressure 153/64 H 155/72 H Pulse Oximetry 92 L 95 Intake & Output 09/17/18 09/17/18 09/18/18 06:59 18:59 06:59 Intake Total 2105 / 2105 1981.2 / 1981.2 1250 / 1250 Output Total 900 / 900 2450 / 2450 1000 / 1000 Balance 1205 / 1205 -468.8 / -468.8 250 / 250 Intake: IV 1205 / 1205 1861.2 / 1861.2 1250 / 1250 Precedex Inj 1,000 MCG In NS 250 / 250 250 / 250 Inj 240 ML @ 0.2 MCG/KG/HR 4.15 mls/hr IV.CONT TITRATE PRN Rx# :[id number] Precedex Inj 200 MCG In NS Inj 50 / 50 48 ML @ 0.2 MCG/KG/HR 4.15 mls/ hr IV.CONT TITRATE PRN Rx#: [id number] LR 1000 mL Inj 1,000 ML @ 100 1000 / 1000 1000 / 1000 1000 / 1000 mls/hr IV.CONT .Q10H [facility] Rx#: [id number] MVI-12 Inj 10 ML Thiamine Inj 511.2 / 511.2 100 MG Folvite Inj 1 MG In NS Inj 500 ML @ 125 mls/hr IV.SIG Q24H [facility] Rx#:[id number] Depacon Inj 500 MG In NS Inj 105 / 105 100 ML @ 105 mls/hr IV.SIG Q12H [facility] Rx#:[id number] Ancef 2 GM Premix Inj 2 gm In 50 / 50 50 / 50 50 ml @ 100 mls/hr IV.SIG Q8H [facility] Rx#:[id number] Oral 120 / 120 Other 100 / 100 Rbc As-3 Leukoreduced Unit 100 / 100 [id number] Intake (Blood Product) Amt 800 / 800 Rbc As-3 Leukoreduced Unit 400 / 400 [id number] Rbc As-3 Leukoreduced Unit 400 / 400 [id number] Output: Urine Amount (Catheter) 900 / 900 2450 / 2450 1000 / 1000 Indwelling Urethral Catheter 900 / 900 2450 / 2450 1000 / 1000 Other: Other Intake Source Rbc As-3 Leukoreduced Unit Saline Solution [id number] # Bowel Movements 0 # Incontinent Bowel Movements 0 0 Narrative: RLE: +skeletal traction. Splint intact. Foot resting against foot of bed due to patient slipping in bed. RUE: +long arm splint. intact LLE: noticeable bruising of foot - Urinary Catheter Management Indwelling Urethral Catheter Cath placed during this visit: yes Reason for continuing: Hourly intake/output Insertion date: 09/14/18 Insertion time: 00:00 Results - Labs CBC & Chem 7: 09/18/18 03:43 09/16/18 14:00 Laboratory Results - last 24 hr 09/18/18 03:43 WBC 12.6 H RBC 2.79 L Hgb 9.1 L Hct 26.2 L MCV 93.9 MCH 32.6 MCHC 34.7 RDW 14.6 Plt Count 188 MPV 7.8 Neut % (Auto) 77.5 H Lymph % (Auto) 12.4 [place] % (Auto) 6.2 Eos % (Auto) 3.4 Baso % (Auto) 0.5 Neut # (Auto) 9.7 H Lymph # (Auto) 1.6 [place] # (Auto) 0.8 Eos # (Auto) 0.4 Baso # (Auto) 0.1 WBC Differential . Differential Comment Auto diff final - Imaging Impressions Pelvis X-Ray 09/17/18 00:00 CONCLUSION: Reasonable alignment in traction. Assessment and Plan - Assessment and Plan 1) right acetabular fracture dislocation s/p application of skeletal traction - POD 3 2) comminuted right proximal ulna fracture dislocation 3) right knee laceration s/p I&D and closure - POD 3 4) right fibula fracture with ankle subluxation s/p splinting - nonop 5) right foot cuboid fracture - nonop 6) left foot first toe distal phalanx fracture - nonop -NPO -Surgery this morning for right acetabulum -will need definitive surgery on right elbow as well, but will perform after hip is done -maintain splint and dressings on right leg -maintain skeletal traction -We will order CT of the left foot and x-rays of right ankle after surgery
[2018-09-18] MEDS ORDERED: SODIUM CHLOR 0.9% IV.SIG SCH (06:46)
[2018-09-18] MEDS ORDERED: TRANEXAMIC ACID IV.SIG SCH (06:46)
[2018-09-18] MEDS ORDERED: Sodium Chlor 0.9% Inj 250 ML IV.SIG SCH (07:00)
[2018-09-18] MEDS ORDERED: Lidocaine PF 1% Inj 5 ML Syringe OTHER ONE (07:22)
[2018-09-18] MEDS ORDERED: Succinylcholine Inj 100 MG/5 ML Syringe IV.PUSH ONE (07:22)
[2018-09-18] MEDS ORDERED: Heparin - SQ 10,000 UNITS/ML Vial ONE (07:25)
--- NOTE | 2018-09-18 08:10 | P.OP ---
- Preoperative Diagnosis (1) Closed right acetabular fracture Date of procedure: 09/18/18 Procedure: Surgery was not performed secondary to respiratory status Anesthesia: GETA Surgeon: Steve Kumar MD Operation and Findings: Renzo is brought to the operating room today with plan of open reduction internal fixation of right acetabulum. He was given IV sedation and general anesthesia. He was placed in lateral decubitus position. Once patient was in lateral position he began desaturating. Attempts were made by anesthesiologist , Dr. Palacios, to improve his saturations. His respiratory status was unstable. At this point decision was made to abort attempt at surgical fixation today. He was sent back to the intensive care and intubated condition. I will attempt surgical fixation once his respiratory status has improved.
[2018-09-18] MEDS ORDERED: fentaNYL Citrate Inj 100 MCG/2 ML Ampul ONE (08:52)
[2018-09-18] MEDS ORDERED: RASS Change Order OTHER ONE (09:00)
[2018-09-18] MEDS: Senna/Docusate Sodium 8.6/50 MG Tablet PO SCH ×2 (09:07→20:58)
[2018-09-18] MEDS: Propofol 1000 mg/100 ml Inj 1,000 MG/100 ML BOTTLE IV.CONT PRN ×4 (09:08→20:58)
[2018-09-18] MEDS: fentaNYL 10 mcg/mL Premix Drip 2,500 MCG/250 ML BAG IV.SIG PRN ×2 (09:08→18:56)
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
[2018-09-18 15:30] LABS: ABG Base Excess -2.5 mmol/L (-2-2); ABG PCO2 38 mmHg (38-42); ABG PO2 166 mmHg (61-120)
[2018-09-18] MEDS: Oral Hygiene Kit OROPHARYNG SCH (16:25)
--- NOTE | 2018-09-18 17:10 | XR ---
EXAM DATE: 09/18/2018 5:00 PM EST AGE/SEX: 37 years / Male INDICATIONS: Evaluate right hip fracture. CLINICAL DATA: This is the patient's subsequent encounter. Patient reports that signs and symptoms h ave been present for 3 days and indicates a pain score of Nonresponsive. MEDICAL/SURGICAL HISTORY: Non-responsive. Non-responsive. COMPARISON: 09/15/2018 intraoperative images. FINDINGS: Single AP image of the right hip. Right acetabular fracture again seen. Alignment grossly unchanged.. CONCLUSION: Intraoperative spot images showing right acetabular fracture. Electronically signed by: Joseluis Gordon MD Board Certified Radiologist 09/18/2018 5:09 PM EST
[2018-09-18] MEDS: Chlorhexidine 0.12% Oral Kit 15 ML UDC OROPHARYNG SCH (20:57)
[2018-09-18] MEDS: QUEtiapine 100 MG Tablet PO SCH (20:58)
[2018-09-18] MEDS: Haloperidol Inj 5 MG/ML Ampul IV.PUSH PRN (21:14)
--- NOTE | 2018-09-18 23:58 | P.PCN ---
Date of procedure: 09/18/18 Procedure: Endotracheal Intubation Diagnosis: Acute hypoxic respiratory failure Indications: Acute hypoxic respiratory failure Consent: Emergent Anesthesia: Propofol 200 mg IV, rocuronium 100 mill grams IV Description of the Procedure: Patient has unstable C-spine. Extra care was taken to prevent motion of the C- spine. The patient was positioned in the sniffing position. Pre-oxygenation was performed using a nonrebreather mask. Anesthesia was induced via rapid sequence. A video laryngoscope was used for laryngoscopy and a Grade III view was obtained. A 8.0 cuffed endotracheal tube was inserted atraumatically through the vocal cords. Confirmation of correct endotracheal tube placement was made by equal and bilateral breath sounds and colorimetric CO2 detection. The endotracheal tube was secured at 24 cm at the teeth. There were no immediate complications noted. The patient remained hemodynamically stable throughout the procedure. A chest x-ray has been ordered. I personally performed the procedure.
--- NOTE | 2018-09-19 00:04 | XR ---
EXAM DATE: 09/18/2018 11:55 PM EST AGE/SEX: 37 years / Male INDICATIONS: ET tube placement. CLINICAL DATA: This is the patient's initial encounter. Patient reports that signs and symptoms have been present for 1 day and indicates a pain score of Nonresponsive. MEDICAL/SURGICAL HISTORY: Non-responsive. Non-responsive. COMPARISON: [facility] – [place], CHEST 1V SINGLE AP, 09/15/2018. . FINDINGS: ETT is at the level of the clavicles. NGT courses been the GE junction with tip omitted from the imag e. Mild diffuse interstitial prominence with patchy airspace opacities in the right mid to lower lung zones. Cardiomediastinal contours are stable. Remainder of the exam is unchanged. CONCLUSION: 1. ETT in good position. NGT beyond the GE junction. 2. Mild diffuse interstitial edema with patchy airspace disease in the right mid to lower lung zones . Electronically signed by: Jagdish Alford MD Board Certified Radiologist 09/19/2018 12:03 AM EST
[2018-09-19] MEDS: Oral Hygiene Kit OROPHARYNG SCH ×5 (00:15→23:32)
[2018-09-19] MEDS: Midazolam 100 MG/100 ML Inj 100 MG/100 ML BAG IV.CONT PRN ×3 (00:15→18:57)
[2018-09-19] MEDS: Propofol 1000 mg/100 ml Inj 1,000 MG/100 ML BOTTLE IV.CONT PRN ×7 (00:23→21:29)
[2018-09-19] MEDS ORDERED: Sodium Chloride 0.9% 2 ML Flush PRN IV.FLUSH (00:24)
--- NOTE | 2018-09-19 04:12 | XR ---
EXAM DATE: 09/19/2018 3:41 AM EST AGE/SEX: 37 years / Male INDICATIONS: Respiratory disease. CLINICAL DATA: This is the patient's subsequent encounter. Patient reports that signs and symptoms h ave been present for 4 - 6 days and indicates a pain score of Nonresponsive. MEDICAL/SURGICAL HISTORY: Non-responsive. Non-responsive. COMPARISON: [facility], CHEST 1V SINGLE AP, 09/18/2018. . FINDINGS: Stable ETT and NGT coursing beyond the GE junction. Persistent diffuse interstitial prominence with p atchy airspace disease in the medial upper lung zones and right mid to lower lung zones. Cardiomedias tinal contours are within normal limits. Remainder of the exam is unchanged. CONCLUSION: 1. Stable ETT and NGT. 2. Stable interstitial prominence with patchy medial bilateral upper lobe and right mid to lower romel g zone airspace opacities. Electronically signed by: Jagdish Alford MD Board Certified Radiologist 09/19/2018 4:11 AM EST
[2018-09-19 04:41] LABS: Baso % (Auto) 0.3 % (0.0-2.0); Eos % (Auto) 0.1 % (0.0-4.0); Hematocrit 24.2 % (39.0-51.0); Hemoglobin 8.5 gm/dL (13.0-17.0); Lymph # (Auto) 0.8 th/mm3 (1.0-4.8); Lymph % (Auto) 6.9 % (9.0-44.0); Mean Corpuscular HGB Conc 35.1 % (32.0-36.0); Mean Corpuscular Hemoglobin 32.9 pg (27.0-34.0); Mean Corpuscular Volume 93.7 fL (80.0-100.0); Mono # (Auto) 0.9 th/mm3 (0.0-0.9); Mono % (Auto) 7.9 % (0.0-8.0); Neut # (Auto) 9.6 th/mm3 (1.8-7.7); Neut % (Auto) 84.8 % (16.0-70.0); Platelet Count 226 th/mm3 (150-450); Red Blood Count 2.58 mil/mm3 (4.50-5.90); Red Cell Distribution Width 14.8 % (11.6-17.2); White Blood Count 11.3 th/mm3 (4.0-11.0)
[2018-09-19] MEDS: Chlorhexidine Gluconate 2% 1 Pack (2 Cloths) TOPICAL SCH (04:55)
[2018-09-19 05:00] LABS: Albumin 2.1 g/dL (3.4-5.0); Anion Gap 9 meq/L (5-15); Aspartate Aminotransferase 59 U/L (15-37); Blood Urea Nitrogen 10 mg/dL (7-18); Calcium 8.4 mg/dL (8.5-10.1); Carbon Dioxide 24.8 meq/L (21.0-32.0); Chloride 110 meq/L (98-107); Glomerular Filtration Rate Greater Than 89 mL/min (>89); Glucose,Random 113 mg/dL (74-106); Potassium 3.1 meq/L (3.5-5.1); Sodium 144 meq/L (136-145)
[2018-09-19 05:05] LABS: Alanine Aminotransferase 47 U/L (12-78); Alkaline Phosphatase 93 U/L (45-117); Total Protein 6.1 g/dL (6.4-8.2)
[2018-09-19] MEDS: fentaNYL 10 mcg/mL Premix Drip 2,500 MCG/250 ML BAG IV.SIG PRN ×2 (05:37→16:55)
[2018-09-19 06:12] LABS: ABG Base Excess -0.8 mmol/L (-2-2); ABG PCO2 35 mmHg (38-42); ABG PO2 118 mmHg (61-120)
[2018-09-19] MEDS: Pantoprazole Inj 40 MG Vial IV.PUSH SCH (06:44)
[2018-09-19] MEDS: QUEtiapine 25 MG Tablet PO SCH ×2 (06:44→14:57)
[2018-09-19] MEDS: Potassium Chlor 20 mEq Premix 20 MEQ/100 ML PIGGYBACK IV.SIG PRN ×2 (08:58→18:57)
[2018-09-19] MEDS: Chlorhexidine 0.12% Oral Kit 15 ML UDC OROPHARYNG SCH ×2 (08:59→21:04)
[2018-09-19] MEDS: Senna/Docusate Sodium 8.6/50 MG Tablet PO SCH ×2 (08:59→21:04)
[2018-09-19] MEDS: Sodium Chloride 0.9% 2 ML Flush BID IV.FLUSH SCH ×2 (09:00→21:07)
[2018-09-19 09:06] LABS: Lymphocytes 5 % (9-44); Metamyelocytes 1 % (0-1); Monocytes 5 % (0-8); Myelocytes 1 % (0-0)
[2018-09-19 09:07] LABS: Platelet Estimate Normal (Normal); Platelet Morphology Normal (Normal)
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
[2018-09-19] MEDS ORDERED: Heparin - SQ 10,000 UNITS/ML Vial ONE (11:50)
[2018-09-19] MEDS ORDERED: Normosol-R pH 7.4 Inj 2,000 ML IV.CONT ONE (13:32)
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
[2018-09-19] MEDS ORDERED: Tobramycin Sulfate 1,200 MG Vial (for ortho/sterile core) OTHER ONE (14:55)
[2018-09-19] MEDS ORDERED: Post-op Orders (for Pharmacy) OTHER STA (15:51)
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
[2018-09-19] MEDS ORDERED: Vancomycin Consult Pharmacy 1 EACH OTHER PRN (16:00)
[2018-09-19] MEDS ORDERED: fentaNYL Citrate Inj 100 MCG/2 ML Ampul ONE (16:50)
--- NOTE | 2018-09-19 16:50 | P.PNOP ---
Subjective Interval history: Transferred back to intensive care unit in stable condition. Physical Exam Vital signs: Vital Signs 09/18/18 17:00 09/18/18 18:00 09/18/18 19:00 Temperature Pulse Rate 64 59 L 56 L Respiratory Rate 16 16 16 Blood Pressure 123/65 126/68 128/69 Pulse Oximetry 100 100 100 09/18/18 20:00 09/18/18 20:13 09/18/18 21:00 Temperature 97.9 F Pulse Rate 55 L 55 L 93 H Respiratory Rate 16 16 20 Blood Pressure 130/69 162/92 H Pulse Oximetry 100 100 100 09/19/18 00:00 09/19/18 00:30 09/19/18 01:00 Temperature Pulse Rate 122 H 96 H Respiratory Rate 17 17 16 Blood Pressure 130/60 100/51 L Pulse Oximetry 94 L 94 L 95 09/19/18 02:00 09/19/18 03:00 09/19/18 04:00 Temperature Pulse Rate 93 H 92 H 81 Respiratory Rate 16 16 16 Blood Pressure 107/54 L 146/70 H 101/51 L Pulse Oximetry 94 L 96 94 L 09/19/18 04:22 09/19/18 05:00 09/19/18 06:00 Temperature Pulse Rate 78 81 73 Respiratory Rate 16 16 16 Blood Pressure 106/51 L 108/54 L Pulse Oximetry 96 97 97 09/19/18 06:30 09/19/18 06:45 09/19/18 07:00 Temperature Pulse Rate 71 70 70 Respiratory Rate 16 16 16 Blood Pressure 109/54 L 109/56 L 110/53 L Pulse Oximetry 97 97 98 09/19/18 07:15 09/19/18 07:30 09/19/18 07:45 Temperature Pulse Rate 68 69 68 Respiratory Rate 16 16 16 Blood Pressure 111/55 L 110/54 L 109/56 L Pulse Oximetry 98 98 98 09/19/18 08:00 09/19/18 08:15 09/19/18 08:30 Temperature 97.8 F Pulse Rate 67 66 66 Respiratory Rate 16 16 16 Blood Pressure 110/56 L 111/55 L 112/57 L Pulse Oximetry 99 99 100 09/19/18 08:45 09/19/18 08:54 09/19/18 08:58 Temperature Pulse Rate 64 64 Respiratory Rate 16 16 16 Blood Pressure 115/58 L Pulse Oximetry 100 99 02/08/19 09:00 09/19/18 09:15 09/19/18 09:30 Temperature Pulse Rate 64 65 65 Respiratory Rate 16 16 16 Blood Pressure 114/54 L 115/55 L 116/59 L Pulse Oximetry 99 100 100 09/19/18 09:45 09/19/18 10:00 09/19/18 10:15 Temperature Pulse Rate 64 64 63 Respiratory Rate 16 16 16 Blood Pressure 119/57 L 120/59 L 122/59 L Pulse Oximetry 100 100 100 09/19/18 10:30 09/19/18 10:45 09/19/18 11:00 Temperature Pulse Rate 62 62 62 Respiratory Rate 16 16 16 Blood Pressure 122/60 124/60 125/62 Pulse Oximetry 100 100 100 09/19/18 11:15 09/19/18 11:30 09/19/18 11:45 Temperature Pulse Rate 61 58 L 57 L Respiratory Rate 16 16 16 Blood Pressure 122/61 125/63 126/63 Pulse Oximetry 100 100 100 09/19/18 11:52 09/19/18 12:00 Temperature 97.6 F Pulse Rate 56 L Respiratory Rate 16 16 Blood Pressure 128/67 Pulse Oximetry 100 100 Intake & Output 09/18/18 09/19/18 09/19/18 18:59 06:59 18:59 Intake Total 1780 / 1780 1550 / 1550 500 / 500 Output Total 2700 / 2700 775 / 775 Balance -920 / -920 775 / 775 500 / 500 Intake: IV 1700 / 1700 1550 / 1550 500 / 500 Precedex Inj 1,000 MCG In NS 250 / 250 Inj 240 ML @ 0.2 MCG/KG/HR 4.15 mls/hr IV.CONT TITRATE PRN Rx# :[id number] LR 1000 mL Inj 1,000 ML @ 100 1000 / 1000 1000 / 1000 mls/hr IV.CONT .Q10H APRIL Rx#: [id number] Versed Inj 100 mg In 100 ml @ 5 100 / 100 MG/HR 5 mls/hr IV.CONT TITRATE PRN Rx#:[id number] Diprivan 1000 mg/100 ml Inj 1, 200 / 200 300 / 300 300 / 300 000 mg In 100 ml @ 5 MCG/KG/MIN 2.493 mls/hr IV.CONT TITRATE PRN Rx#:[id number] KCl 20 mEq Premix Inj 20 meq In 100 / 100 100 ml @ 50 mls/hr IV.SIG Q2H PRN Rx#:[id number] fentaNYL 10 mcg/mL Premix Drip 250 / 250 250 / 250 2,500 mcg In 250 ml @ 50 MCG/HR 5 mls/hr IV.SIG TITRATE PRN Rx #:[id number] Tube Irrigant 80 / 80 Output: Urine Amount (Catheter) 2400 / 2400 775 / 775 Indwelling Urethral Catheter 2400 / 2400 775 / 775 Gastric Drainage 300 / 300 0 / 0 Right Nare Nasogastric Tube 300 / 300 0 / 0 Other: # Bowel Movements 0 Narrative: Right upper extremity: Long-arm splint in place. Intact distal pulses and good capillary refills Right lower extremity: Clean dry dressings intact over hip. Mild swelling. Clean dressings over knee and short leg posterior and stirrup splint in place. Intact distal pulses with good capillary refills Left lower extremity: No laxity or crepitus range of motion of the hip or knee. Significant bruising over the foot. Intact distal pulses. - Urinary Catheter Management Indwelling Urethral Catheter Cath placed during this visit: yes Reason for continuing: Hourly intake/output Insertion date: 09/14/18 Insertion time: 00:00 Results - Labs CBC & Chem 7: 09/19/18 03:33 09/19/18 03:33 Laboratory Results - last 24 hr 09/18/18 09/19/18 09/19/18 06:51 03:33 03:33 WBC 11.3 H RBC 2.58 L Hgb 8.5 L Hct 24.2 L MCV 93.7 MCH 32.9 MCHC 35.1 RDW 14.8 Plt Count 226 MPV 8.0 Prelim Diff (Auto) Slide review pending Neut % (Auto) 84.8 H Lymph % (Auto) 6.9 L Burnet % (Auto) 7.9 Eos % (Auto) 0.1 Baso % (Auto) 0.3 Neut # (Auto) 9.6 H Lymph # (Auto) 0.8 L Burnet # (Auto) 0.9 Eos # (Auto) 0.0 Baso # (Auto) 0.0 WBC Differential Manual diff final Seg Neuts % (Manual) 75 H Band Neuts % (Manual) 13 H Lymphocytes % (Manual) 5 L Monocytes % (Manual) 5 Metamyelocytes % (Man) 1 Myelocytes % (Man) 1 H Abs Neuts (Manual) 10.2 H Differential Comment . Platelet Estimate Normal Platelet Morphology Normal Puncture Site Patient Temperature O2 Saturation ABG pH ABG pCO2 ABG pO2 ABG HCO3 ABG O2 Content ABG Base Excess ABG Methemoglobin Hemoglobin Carboxyhemoglobin O2 Delivery Device Vent Setting Inspired O2 Critical Value Sodium 144 Potassium 3.1 L Chloride 110 H Carbon Dioxide 24.8 Anion Gap 9 BUN 10 Creatinine 0.69 Estimated GFR Greater than 89 Random Glucose 113 H Calcium 8.4 L Magnesium Total Bilirubin 0.9 AST 59 H ALT 47 Alkaline Phosphatase 93 Total Protein 6.1 L D Albumin 2.1 L MTS Gel Crossmatch See Detail 09/19/18 09/19/18 03:33 05:55 WBC RBC Hgb Hct MCV MCH MCHC RDW Plt Count MPV Prelim Diff (Auto) Neut % (Auto) Lymph % (Auto) Burnet % (Auto) Eos % (Auto) Baso % (Auto) Neut # (Auto) Lymph # (Auto) Burnet # (Auto) Eos # (Auto) Baso # (Auto) WBC Differential Seg Neuts % (Manual) Band Neuts % (Manual) Lymphocytes % (Manual) Monocytes % (Manual) Metamyelocytes % (Man) Myelocytes % (Man) Abs Neuts (Manual) Differential Comment Platelet Estimate Platelet Morphology Puncture Site Left brachial Patient Temperature 98.6 O2 Saturation 96 ABG pH 7.43 H ABG pCO2 35 L ABG pO2 118 ABG HCO3 23 ABG O2 Content 15.1 ABG Base Excess -0.8 ABG Methemoglobin 1.2 Hemoglobin 11.0 L Carboxyhemoglobin 1.5 O2 Delivery Device Ventilator Vent Setting [id number]/[id number] Inspired O2 40 Critical Value No Sodium Potassium Chloride Carbon Dioxide Anion Gap BUN Creatinine Estimated GFR Random Glucose Calcium Magnesium 2.3 Total Bilirubin AST ALT Alkaline Phosphatase Total Protein Albumin MTS Gel Crossmatch - Imaging Impressions Chest X-Ray 09/18/18 00:00 CONCLUSION: 1. ETT in good position. NGT beyond the GE junction. 2. Mild diffuse interstitial edema with patchy airspace disease in the right mid to lower lung zones. Hip X-Ray 09/18/18 00:00 CONCLUSION: Intraoperative spot images showing right acetabular fracture. Chest X-Ray 09/19/18 06:00 CONCLUSION: 1. Stable ETT and NGT. 2. Stable interstitial prominence with patchy medial bilateral upper lobe and right mid to lower lung zone airspace opacities. Assessment and Plan - Assessment and Plan 1) right acetabular fracture dislocation with ORIF and removal of skeletal traction - POD 0 2) comminuted right proximal ulna fracture dislocation 3) right knee laceration s/p I&D and closure - POD 4 4) right fibula fracture with ankle subluxation s/p splinting - nonop 5) right foot cuboid fracture - nonop 6) left foot first toe distal phalanx fracture - nonop -Nonweightbearing right upper extremity and right lower extremity Maintain splint to right upper extremity and right ankle Maintain dressing over posterior hip for 5 days then convert over to [place] every other day. May begin changing dressings sooner if drainage or disheveled Lovenox -We will order CT of the left foot and x-rays of right ankle after surgery We will plan on surgery next week for the right arm when the patient is more stable
--- NOTE | 2018-09-19 17:26 | XR ---
EXAM DATE: 09/19/2018 5:22 PM EST AGE/SEX: 37 years / Male INDICATIONS: Central line placement, left. CLINICAL DATA: This is the patient's initial encounter. Patient reports that signs and symptoms have been present for 1 day and indicates a pain score of Nonresponsive. MEDICAL/SURGICAL HISTORY: Non-responsive. Non-responsive. COMPARISON: [facility] – [place], CHEST 1V SINGLE AP, 09/19/2018. . FINDINGS: Single AP view the chest. Endotracheal tube and nasogastric tube remain in place. Left subclavian dalila tral venous catheter is now seen with the tip in the distal SVC. No evidence of pneumothorax. Bilater al pulmonary vascular congestion is again seen. There is new prominent left lower lung consolidation versus atelectasis. CONCLUSION: 1. Left subclavian central venous catheter now in place with tip in the distal SVC. No evidence of p neumothorax. 2. New prominent left lower lobe consolidation versus atelectasis. Electronically signed by: Joseluis Gordon MD Board Certified Radiologist 09/19/2018 5:25 PM EST
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
--- NOTE | 2018-09-19 17:39 | XR ---
EXAM DATE: 09/19/2018 5:36 PM EST AGE/SEX: 37 years / Male INDICATIONS: Open reduction internal fixation right acetabulum fracture. CLINICAL DATA: This is the patient's initial encounter. Patient reports that signs and symptoms have been present for 1 day and indicates a pain score of Nonresponsive. MEDICAL/SURGICAL HISTORY: None. None. COMPARISON: No prior exams available for comparison. FINDINGS: 13 intraoperative images of the pelvis demonstrate malleable plates and transfixing screws at the shukri tabulum. CONCLUSION: Intraoperative images of the pelvis demonstrating internal fixation hardware at the acetabulum. Electronically signed by: Joseluis Gordon MD Board Certified Radiologist 09/19/2018 5:38 PM EST
[2018-09-19 19:46] LABS: Hematocrit 23.4 % (39.0-51.0); Hemoglobin 8.1 gm/dL (13.0-17.0)
[2018-09-19] MEDS: QUEtiapine 100 MG Tablet PO SCH (21:04)
[2018-09-19] MEDS: Enoxaparin Inj 30 MG/0.3 ML Syringe SQ SCH (21:04)
[2018-09-19] MEDS: ceFAZolin 2 GM Premix Inj 2 GM/50 ML PIGGYBACK IV.SIG SCH (23:25)
[2018-09-20] MEDS: Propofol 1000 mg/100 ml Inj 1,000 MG/100 ML BOTTLE IV.CONT PRN ×5 (01:33→20:50)
[2018-09-20] MEDS: Haloperidol Inj 5 MG/ML Ampul IV.PUSH PRN ×2 (01:48→17:28)
[2018-09-20] MEDS: fentaNYL 10 mcg/mL Premix Drip 2,500 MCG/250 ML BAG IV.SIG PRN ×3 (01:53→20:50)
[2018-09-20] MEDS ORDERED: Vancomycin Inj 1,250 MG in Sodium Chlor 0.9% Inj 250 ML IV.SIG SCH (03:00)
[2018-09-20] MEDS: Midazolam 100 MG/100 ML Inj 100 MG/100 ML BAG IV.CONT PRN ×3 (03:15→22:10)
[2018-09-20] MEDS: Oral Hygiene Kit OROPHARYNG SCH ×4 (03:47→23:59)
[2018-09-20] MEDS: Chlorhexidine Gluconate 2% 1 Pack (2 Cloths) TOPICAL SCH (03:47)
--- NOTE | 2018-09-20 03:59 | XR ---
EXAM DATE: 09/20/2018 3:56 AM EST AGE/SEX: 37 years / Male INDICATIONS: Shortness of breath. CLINICAL DATA: This is the patient's subsequent encounter. Patient reports that signs and symptoms h ave been present for 4 - 6 days and indicates a pain score of Nonresponsive. MEDICAL/SURGICAL HISTORY: Non-responsive. Non-responsive. COMPARISON: [facility], CHEST 1V SINGLE AP, 09/19/2018. . FINDINGS: Stable ETT, left subclavian central line and NGT. Significantly improved left lower lobe airspace dis ease. Cardiomediastinal contours are within normal limits. Remainder of the exam is unchanged. CONCLUSION: 1. Stable tubes and lines, as above. 2. Significantly improved left lower lobe airspace disease. Electronically signed by: Jagdish Alford MD Board Certified Radiologist 09/20/2018 3:57 AM EST
[2018-09-20 04:05] LABS: Baso # (Auto) 0.1 th/mm3 (0.0-0.2); Baso % (Auto) 0.6 % (0.0-2.0); Eos # (Auto) 0.3 th/mm3 (0.0-0.4); Eos % (Auto) 3.1 % (0.0-4.0); Hematocrit 23.5 % (39.0-51.0); Hemoglobin 8.3 gm/dL (13.0-17.0); Lymph # (Auto) 1.7 th/mm3 (1.0-4.8); Lymph % (Auto) 16.9 % (9.0-44.0); Mean Corpuscular HGB Conc 35.6 % (32.0-36.0); Mean Corpuscular Hemoglobin 33.6 pg (27.0-34.0); Mean Corpuscular Volume 94.4 fL (80.0-100.0); Mono % (Auto) 10.4 % (0.0-8.0); Neut # (Auto) 6.8 th/mm3 (1.8-7.7); Platelet Count 292 th/mm3 (150-450); Red Blood Count 2.48 mil/mm3 (4.50-5.90); Red Cell Distribution Width 14.9 % (11.6-17.2); White Blood Count 9.9 th/mm3 (4.0-11.0)
[2018-09-20 04:39] LABS: Alanine Aminotransferase 37 U/L (12-78); Alkaline Phosphatase 95 U/L (45-117); Anion Gap 7 meq/L (5-15); Aspartate Aminotransferase 42 U/L (15-37); Blood Urea Nitrogen 10 mg/dL (7-18); Calcium 7.3 mg/dL (8.5-10.1); Carbon Dioxide 26.7 meq/L (21.0-32.0); Chloride 112 meq/L (98-107); Glomerular Filtration Rate Greater Than 89 mL/min (>89); Glucose,Random 103 mg/dL (74-106); Potassium 3.1 meq/L (3.5-5.1); Sodium 146 meq/L (136-145); Total Protein 5.5 g/dL (6.4-8.2)
[2018-09-20] MEDS: Potassium Chlor 40 mEq Premix 40 MEQ/100 ML PIGGYBACK IV.SIG PRN (05:08)
[2018-09-20 05:35] LABS: Eosinophils 1 % (0-4); Lymphocytes 17 % (9-44); Metamyelocytes 3 % (0-1); Monocytes 2 % (0-8); Myelocytes 2 % (0-0); Tallied Nucleated RBC 1 (0-0)
[2018-09-20 05:37] LABS: Platelet Estimate Normal (Normal); Platelet Morphology Normal (Normal)
[2018-09-20 05:50] LABS: ABG Base Excess 0.8 mmol/L (-2-2); ABG PCO2 36 mmHg (38-42); ABG PO2 111 mmHg (61-120)
[2018-09-20] MEDS: Pantoprazole Inj 40 MG Vial IV.PUSH SCH (07:55)
[2018-09-20] MEDS: ceFAZolin 2 GM Premix Inj 2 GM/50 ML PIGGYBACK IV.SIG SCH ×3 (07:55→22:07)
[2018-09-20] MEDS: QUEtiapine 25 MG Tablet PO SCH ×2 (07:56→13:20)
[2018-09-20] MEDS: Chlorhexidine 0.12% Oral Kit 15 ML UDC OROPHARYNG SCH ×2 (10:12→20:49)
[2018-09-20] MEDS: Enoxaparin Inj 30 MG/0.3 ML Syringe SQ SCH ×2 (10:13→20:48)
[2018-09-20] MEDS: Indomethacin 75 MG ER Capsule PO SCH (10:13)
[2018-09-20] MEDS: Senna/Docusate Sodium 8.6/50 MG Tablet PO SCH ×2 (10:13→20:48)
[2018-09-20] MEDS: Sodium Chloride 0.9% 2 ML Flush BID IV.FLUSH SCH ×2 (10:14→20:49)
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
--- NOTE | 2018-09-20 14:33 | P.PNOP ---
Subjective Interval history: intubated Physical Exam Vital signs: Vital Signs 09/19/18 16:26 09/19/18 17:00 09/19/18 18:00 Temperature 97.4 F L Pulse Rate 79 68 57 L Respiratory Rate 17 16 16 Blood Pressure Pulse Oximetry 99 100 09/19/18 19:00 09/19/18 20:00 09/19/18 20:20 Temperature 97.5 F L Pulse Rate 70 66 Respiratory Rate 14 16 16 Blood Pressure Pulse Oximetry 98 100 100 09/19/18 21:00 09/19/18 22:00 09/19/18 23:00 Temperature Pulse Rate 75 80 85 Respiratory Rate 19 16 16 Blood Pressure Pulse Oximetry 100 100 100 09/19/18 23:28 09/20/18 00:00 09/20/18 01:00 Temperature 98.5 F Pulse Rate 86 107 H Respiratory Rate 16 16 19 Blood Pressure Pulse Oximetry 100 100 99 09/20/18 02:00 09/20/18 03:00 09/20/18 04:00 Temperature 100.3 F H Pulse Rate 107 H 118 H 110 H Respiratory Rate 16 21 16 Blood Pressure Pulse Oximetry 97 97 96 09/20/18 04:01 09/20/18 05:00 09/20/18 06:00 Temperature Pulse Rate 108 H 108 H Respiratory Rate 16 16 16 Blood Pressure 103/50 L Pulse Oximetry 96 97 96 09/20/18 07:16 09/20/18 11:21 Temperature Pulse Rate Respiratory Rate 16 16 Blood Pressure Pulse Oximetry 96 96 Intake & Output 09/19/18 09/20/18 09/20/18 18:59 06:59 18:59 Intake Total 2610 / 2610 1236.5 / 1236.5 1500 / 1500 Output Total 1475 / 1475 1999 / 1999 Balance 1135 / 1135 -763.5 / -763.5 1500 / 1500 Intake: IV 1050 / 1050 1062.5 / 1062.5 1500 / 1500 LR 1000 mL Inj 1,000 ML @ 100 1000 / 1000 mls/hr IV.CONT .Q10H [facility] Rx#: [id number] Versed Inj 100 mg In 100 ml @ 5 200 / 200 100 / 100 100 / 100 MG/HR 5 mls/hr IV.CONT TITRATE PRN Rx#:[id number] Diprivan 1000 mg/100 ml Inj 1, 400 / 400 300 / 300 100 / 100 000 mg In 100 ml @ 5 MCG/KG/MIN 2.493 mls/hr IV.CONT TITRATE PRN Rx#:[id number] KCl 20 mEq Premix Inj 20 meq In 200 / 200 100 / 100 100 ml @ 50 mls/hr IV.SIG Q2H PRN Rx#:[id number] Vancomycin Inj 1,250 MG In NS 262.5 / 262.5 Inj 250 ML @ 250 mls/hr IV.SIG Q12H [facility] Rx#:[id number] Ancef 2 GM Premix Inj 2 gm In 50 / 50 50 / 50 50 ml @ 100 mls/hr IV.SIG Q8H [facility] Rx#:[id number] fentaNYL 10 mcg/mL Premix Drip 250 / 250 250 / 250 250 / 250 2,500 mcg In 250 ml @ 50 MCG/HR 5 mls/hr IV.SIG TITRATE PRN Rx #:[id number] Tube Feeding 174 / 174 Tube Irrigant 60 / 60 Anesthesia Amount 1500 / 1500 Output: Urine 1250 / 1250 Estimated Blood Loss 150 / 150 Urine Amount (Catheter) 1325 / 1325 750 / 750 Indwelling Urethral Catheter 1325 / 1325 750 / 750 Other: # Bowel Movements 0 Narrative: intubated, family in room Right upper extremity: Long-arm splint in place. Intact distal pulses and good capillary refills Right lower extremity: Clean dry dressings intact over hip. Mild swelling. Clean dressings over knee and short leg posterior and stirrup splint in place. Intact distal pulses with good capillary refills Left lower extremity: No laxity or crepitus range of motion of the hip or knee. Significant bruising over the foot. Intact distal pulses. - Urinary Catheter Management Indwelling Urethral Catheter Cath placed during this visit: yes Reason for continuing: Hourly intake/output Insertion date: 09/14/18 Insertion time: 00:00 Results - Labs CBC & Chem 7: 09/20/18 03:50 09/20/18 03:50 Laboratory Results - last 24 hr 09/18/18 09/19/18 09/20/18 06:51 19:14 01:25 WBC RBC Hgb 8.1 L Hct 23.4 L MCV MCH MCHC RDW Plt Count MPV Prelim Diff (Auto) Neut % (Auto) Lymph % (Auto) [place] % (Auto) Eos % (Auto) Baso % (Auto) Neut # (Auto) Lymph # (Auto) [place] # (Auto) Eos # (Auto) Baso # (Auto) WBC Differential Seg Neuts % (Manual) Band Neuts % (Manual) Lymphocytes % (Manual) Monocytes % (Manual) Eosinophils % (Manual) Metamyelocytes % (Man) Myelocytes % (Man) Abs Neuts (Manual) Nucleated RBCs/100 WBC Differential Comment Platelet Estimate Platelet Morphology Basophilic Stippling Puncture Site Patient Temperature O2 Saturation ABG pH ABG pCO2 ABG pO2 ABG HCO3 ABG O2 Content ABG Base Excess ABG Methemoglobin Hemoglobin Carboxyhemoglobin O2 Delivery Device Vent Setting Inspired O2 Critical Value Sodium Potassium 3.3 L Chloride Carbon Dioxide Anion Gap BUN Creatinine Estimated GFR Random Glucose Calcium Calcium Adj for Albumin Total Bilirubin AST ALT Alkaline Phosphatase Total Protein Albumin MTS Gel Crossmatch See Detail 09/20/18 09/20/18 09/20/18 03:50 03:50 05:35 WBC 9.9 RBC 2.48 L Hgb 8.3 L Hct 23.5 L MCV 94.4 MCH 33.6 MCHC 35.6 RDW 14.9 Plt Count 292 MPV 7.0 Prelim Diff (Auto) Slide review pending Neut % (Auto) 69.0 Lymph % (Auto) 16.9 [place] % (Auto) 10.4 H Eos % (Auto) 3.1 Baso % (Auto) 0.6 Neut # (Auto) 6.8 Lymph # (Auto) 1.7 [place] # (Auto) 1.0 H Eos # (Auto) 0.3 Baso # (Auto) 0.1 WBC Differential Manual diff final Seg Neuts % (Manual) 72 H Band Neuts % (Manual) 3 Lymphocytes % (Manual) 17 Monocytes % (Manual) 2 Eosinophils % (Manual) 1 Metamyelocytes % (Man) 3 H Myelocytes % (Man) 2 H Abs Neuts (Manual) 7.9 H Nucleated RBCs/100 WBC 1 H Differential Comment . Platelet Estimate Normal Platelet Morphology Normal Basophilic Stippling Faint H Puncture Site Art line Patient Temperature 98.6 O2 Saturation 95 ABG pH 7.45 H ABG pCO2 36 L ABG pO2 111 ABG HCO3 24 ABG O2 Content 10.7 L ABG Base Excess 0.8 ABG Methemoglobin 1.7 Hemoglobin 7.8 L* Carboxyhemoglobin 1.7 O2 Delivery Device Ventilator Vent Setting [id number] Inspired O2 40 Critical Value Yes Sodium 146 H Potassium 3.1 L Chloride 112 H Carbon Dioxide 26.7 Anion Gap 7 BUN 10 Creatinine 0.65 Estimated GFR Greater than 89 Random Glucose 103 Calcium 7.3 L* D Calcium Adj for Albumin 8.9 Total Bilirubin 0.8 AST 42 H ALT 37 Alkaline Phosphatase 95 Total Protein 5.5 L D Albumin 2.0 L MTS Gel Crossmatch - Imaging Impressions Ankle X-Ray 09/19/18 00:00 CONCLUSION: Anatomic alignment in fiberglass. Pelvis X-Ray 09/19/18 00:00 CONCLUSION: Intraoperative images of the pelvis demonstrating internal fixation hardware at the acetabulum. Chest X-Ray 09/19/18 16:50 CONCLUSION: 1. Left subclavian central venous catheter now in place with tip in the distal SVC. No evidence of pneumothorax. 2. New prominent left lower lobe consolidation versus atelectasis. Chest X-Ray 09/20/18 06:00 CONCLUSION: 1. Stable tubes and lines, as above. 2. Significantly improved left lower lobe airspace disease. Assessment and Plan - Assessment and Plan 1) right acetabular fracture dislocation with ORIF and removal of skeletal traction - POD 1 2) comminuted right proximal ulna fracture dislocation 3) right knee laceration s/p I&D and closure - POD 5 4) right fibula fracture with ankle subluxation s/p splinting - nonop 5) right foot cuboid fracture - nonop 6) left foot first toe distal phalanx fracture - nonop -Nonweightbearing right upper extremity and right lower extremity Maintain splint to right upper extremity and right ankle Maintain dressing over posterior hip for 5 days then convert over to [place] every other day. May begin changing dressings sooner if drainage or disheveled Lovenox -We will order CT of the left foot and x-rays of right ankle after surgery We will plan on surgery next week for the right arm when the patient is more stable
[2018-09-20] MEDS ORDERED: SODIUM CHLOR 0.9% IV.SIG SCH (15:00)
[2018-09-20] MEDS ORDERED: VANCOMYCIN IV.SIG SCH (15:00)
--- NOTE | 2018-09-20 18:05 | CT ---
EXAM DATE: 09/20/2018 5:57 PM EST AGE/SEX: 37 years / Male INDICATIONS: Left foot injury; possible fracture. CLINICAL DATA: This is the patient's initial encounter. Patient reports that signs and symptoms have been present for 1 day and indicates a pain score of 8/10. MEDICAL/SURGICAL HISTORY: Hypertension. None. RADIATION DOSE: 7.29 CTDI (mGy) COMPARISON: No prior exams available for comparison. TECHNIQUE: Multiple contiguous axial images were acquired using a multirow detector CT scanner witho ut contrast. Multiplanar reconstruction was performed in the sagittal and coronal planes. Using auto mated exposure control and adjustment of the mA and/or kV according to patient size, radiation dose w as kept as low as reasonably achievable to obtain optimal diagnostic quality images. DICOM format im age data is available electronically for review and comparison. FINDINGS: Bones: There are multiple fractures identified. The talus, calcaneus and cuboid bones are unremarkab le. The navicular bone is unremarkable. There are plantar plate fractures involving the first, second , third and fourth metatarsal bases, although none of them are significantly displaced. There is a pl [place] fracture involving the intermediate cuneiform bone near its articulation with the second metata rsal base. That bone fragment is inferiorly displaced by almost 3 mm. Comminuted fracture involving the first distal phalangeal bone which is intra-articular. Joints: No significant arthropathy or bony hypertrophy is seen. Soft Tissues: No soft tissue mass is seen. Other: No foreign bodies seen. CONCLUSION: 1. Fractures involving the plantar bases of the first through fourth metatarsal shafts, the intermed iate cuneiforms bone and a markedly comminuted fracture involving the proximal aspect of the first di stal phalangeal bone. Electronically signed by: Chapin Loomis MD Board Certified Radiologist 09/20/2018 6:03 PM EST
[2018-09-20] MEDS: QUEtiapine 100 MG Tablet PO SCH (20:48)
[2018-09-21] MEDS: Propofol 1000 mg/100 ml Inj 1,000 MG/100 ML BOTTLE IV.CONT PRN ×5 (02:10→21:19)
[2018-09-21] MEDS: Vancomycin Inj 1,750 MG in Sodium Chlor 0.9% Inj 500 ML IV.SIG SCH ×2 (02:33→16:33)
[2018-09-21 04:53] LABS: Alanine Aminotransferase 65 U/L (12-78); Albumin 1.7 g/dL (3.4-5.0); Alkaline Phosphatase 204 U/L (45-117); Anion Gap 5 meq/L (5-15); Aspartate Aminotransferase 119 U/L (15-37); Blood Urea Nitrogen 10 mg/dL (7-18); Calcium 7.3 mg/dL (8.5-10.1); Carbon Dioxide 29.7 meq/L (21.0-32.0); Chloride 111 meq/L (98-107); Glomerular Filtration Rate Greater Than 89 mL/min (>89); Glucose,Random 118 mg/dL (74-106); Potassium 3.2 meq/L (3.5-5.1); Sodium 146 meq/L (136-145); Total Protein 5.3 g/dL (6.4-8.2)
--- NOTE | 2018-09-21 04:56 | XR ---
EXAM DATE: 09/21/2018 4:14 AM EST AGE/SEX: 37 years / Male INDICATIONS: Follow up trauma alert. CLINICAL DATA: This is the patient's subsequent encounter. Patient reports that signs and symptoms h ave been present for 1 week and indicates a pain score of Nonresponsive. MEDICAL/SURGICAL HISTORY: Non-responsive. Non-responsive. COMPARISON: C, CHEST 1V SINGLE AP, 09/20/2018. . FINDINGS: Stable ETT, NGT and left subclavian central line. Persistent left lower lobe airspace disease. Cardio mediastinal contours are within normal limits. Remainder of the exam is unchanged. CONCLUSION: 1. No significant interval change. 2. Stable tubes and lines, as above. 3. Stable mild left lower lobe airspace disease. Electronically signed by: Jagdish Alford MD Board Certified Radiologist 09/21/2018 4:54 AM EST
[2018-09-21 05:03] LABS: Baso # (Auto) 0.1 th/mm3 (0.0-0.2); Baso % (Auto) 0.8 % (0.0-2.0); Eos # (Auto) 0.3 th/mm3 (0.0-0.4); Eos % (Auto) 3.4 % (0.0-4.0); Hematocrit 23.7 % (39.0-51.0); Hemoglobin 8.3 gm/dL (13.0-17.0); Lymph # (Auto) 1.9 th/mm3 (1.0-4.8); Lymph % (Auto) 18.7 % (9.0-44.0); Mean Corpuscular HGB Conc 35.2 % (32.0-36.0); Mean Corpuscular Hemoglobin 33.1 pg (27.0-34.0); Mean Corpuscular Volume 94.2 fL (80.0-100.0); Mean Platelet Volume 7.2 fL (7.0-11.0); Mono # (Auto) 1.3 th/mm3 (0.0-0.9); Neut # (Auto) 6.4 th/mm3 (1.8-7.7); Neut % (Auto) 64.1 % (16.0-70.0); Platelet Count 332 th/mm3 (150-450); Red Blood Count 2.51 mil/mm3 (4.50-5.90); Red Cell Distribution Width 14.6 % (11.6-17.2); White Blood Count 9.9 th/mm3 (4.0-11.0)
[2018-09-21] MEDS: Oral Hygiene Kit OROPHARYNG SCH ×3 (05:14→15:00)
[2018-09-21] MEDS: Potassium Chlor 40 mEq Premix 40 MEQ/100 ML PIGGYBACK IV.SIG PRN (05:16)
[2018-09-21] MEDS: ceFAZolin 2 GM Premix Inj 2 GM/50 ML PIGGYBACK IV.SIG SCH ×2 (05:20→15:01)
[2018-09-21 05:41] LABS: ABG PCO2 37 mmHg (38-42); ABG PO2 102 mmHg (61-120)
[2018-09-21] MEDS: Pantoprazole Inj 40 MG Vial IV.PUSH SCH (06:28)
[2018-09-21] MEDS: QUEtiapine 25 MG Tablet PO SCH ×2 (06:29→15:03)
[2018-09-21] MEDS: Midazolam 100 MG/100 ML Inj 100 MG/100 ML BAG IV.CONT PRN ×2 (06:29→15:55)
[2018-09-21] MEDS: fentaNYL 10 mcg/mL Premix Drip 2,500 MCG/250 ML BAG IV.SIG PRN ×2 (07:22→18:39)
[2018-09-21 07:54] LABS: Eosinophils 3 % (0-4); Lymphocytes 11 % (9-44); Metamyelocytes 1 % (0-1); Monocytes 6 % (0-8); Myelocytes 4 % (0-0); Promyelocyte 1 % (0-0); Tallied Nucleated RBC 1 (0-0)
[2018-09-21 07:55] LABS: Platelet Estimate Normal (Normal); Platelet Morphology Normal (Normal)
[2018-09-21] MEDS: Indomethacin 75 MG ER Capsule PO SCH (08:46)
[2018-09-21] MEDS: Enoxaparin Inj 30 MG/0.3 ML Syringe SQ SCH ×2 (08:47→20:01)
[2018-09-21] MEDS: Chlorhexidine 0.12% Oral Kit 15 ML UDC OROPHARYNG SCH ×2 (08:47→20:02)
[2018-09-21] MEDS: Senna/Docusate Sodium 8.6/50 MG Tablet PO SCH ×2 (08:48→20:02)
[2018-09-21] MEDS: Sodium Chloride 0.9% 2 ML Flush BID IV.FLUSH SCH ×2 (08:48→20:01)
[2018-09-21] MEDS: Sod Chloride 0.9% Inj 1,000 ML IV.CONT SCH (09:48)
[2018-09-21] MEDS: Metoprolol Inj 5 MG/5 ML Vial IV.PUSH SCH ×3 (09:52→21:10)
--- NOTE | 2018-09-21 12:40 | P.PNOP ---
Subjective Interval history: intubated Physical Exam Vital signs: Vital Signs 09/20/18 13:00 09/20/18 13:30 09/20/18 14:00 Temperature Pulse Rate 97 H 93 H 102 H Respiratory Rate 16 16 16 Blood Pressure 129/64 121/57 L 117/67 Pulse Oximetry 98 96 93 L 09/20/18 14:30 09/20/18 15:00 09/20/18 15:09 Temperature Pulse Rate 97 H 96 H Respiratory Rate 16 16 16 Blood Pressure 117/68 120/65 Pulse Oximetry 96 95 95 09/20/18 15:30 09/20/18 16:00 09/20/18 16:30 Temperature 99.3 F Pulse Rate 93 H 93 H 92 H Respiratory Rate 16 16 16 Blood Pressure 122/69 113/61 122/73 Pulse Oximetry 96 96 96 09/20/18 17:00 09/20/18 17:30 09/20/18 17:55 Temperature Pulse Rate 88 90 Respiratory Rate 16 16 Blood Pressure 135/76 134/85 Pulse Oximetry 98 100 100 09/20/18 18:00 09/20/18 19:00 09/20/18 20:00 Temperature 98.9 F Pulse Rate 99 H 87 83 Respiratory Rate 17 16 16 Blood Pressure 126/80 117/70 116/68 Pulse Oximetry 96 94 L 97 09/20/18 20:30 09/20/18 21:00 09/20/18 21:30 Temperature Pulse Rate 94 H 97 H Respiratory Rate 16 16 16 Blood Pressure 108/61 106/59 L Pulse Oximetry 96 98 97 09/20/18 22:00 09/20/18 23:00 09/20/18 23:17 Temperature Pulse Rate 95 H 92 H Respiratory Rate 16 16 16 Blood Pressure 102/58 L 100/59 L Pulse Oximetry 95 96 96 09/21/18 00:00 09/21/18 01:00 09/21/18 02:00 Temperature 99.0 F Pulse Rate 90 92 H 89 Respiratory Rate 16 16 25 H Blood Pressure 97/54 L 96/51 L 112/65 Pulse Oximetry 95 95 09/21/18 02:09 09/21/18 03:00 09/21/18 04:00 Temperature 98.7 F Pulse Rate 84 83 Respiratory Rate 16 16 12 Blood Pressure 100/58 L 124/73 Pulse Oximetry 99 94 L 98 09/21/18 04:17 02/10/19 05:00 09/21/18 06:00 Temperature Pulse Rate 81 79 Respiratory Rate 16 16 16 Blood Pressure 110/62 118/67 Pulse Oximetry 98 97 98 09/21/18 07:00 09/21/18 07:17 09/21/18 08:00 Temperature 98.3 F Pulse Rate 79 80 Respiratory Rate 16 16 16 Blood Pressure 110/65 111/68 Pulse Oximetry 98 97 99 09/21/18 09:00 09/21/18 10:00 09/21/18 11:00 Temperature Pulse Rate 89 89 83 Respiratory Rate 16 17 12 Blood Pressure 131/80 128/77 114/61 Pulse Oximetry 97 93 L 94 L 09/21/18 11:10 09/21/18 12:00 Temperature Pulse Rate 81 Respiratory Rate 12 12 Blood Pressure 117/59 L Pulse Oximetry 95 94 L Intake & Output 09/20/18 09/21/18 09/21/18 18:59 06:59 18:59 Intake Total 2299.5 / 2299.5 2916.5 / 2916.5 950 / 950 Output Total 600 / 600 900 / 900 Balance 1699.5 / 1699.5 2015. / 2015. 950 / 950 Intake: IV 2016. / 2016. 2617.5 / 2617.5 950 / 950 LR 1000 mL Inj 1,000 ML @ 100 1000 / 1000 1000 / 1000 750 / 750 mls/hr IV.CONT .Q10H [facility] Rx#: [id number] Versed Inj 100 mg In 100 ml @ 5 100 / 100 200 / 200 MG/HR 5 mls/hr IV.CONT TITRATE PRN Rx#:[id number] Diprivan 1000 mg/100 ml Inj 1, 200 / 200 300 / 300 100 / 100 000 mg In 100 ml @ 5 MCG/KG/MIN 2.493 mls/hr IV.CONT TITRATE PRN Rx#:[id number] KCl 40 mEq Premix Inj 40 meq In 100 / 100 100 / 100 100 ml @ 25 mls/hr IV.SIG Q2H PRN Rx#:[id number] Vancomycin Inj 1,750 MG In NS 267.5 / 267.5 Inj 250 ML @ 250 mls/hr IV.SIG Q12H [facility] Rx#:[id number] Vancomycin Inj 1,750 MG In NS 517.5 / 517.5 Inj 500 ML @ 250 mls/hr IV.SIG Q12H [facility] Rx#:[id number] Ancef 2 GM Premix Inj 2 gm In 100 / 100 100 / 100 50 ml @ 100 mls/hr IV.SIG Q8H [facility] Rx#:[id number] fentaNYL 10 mcg/mL Premix Drip 250 / 250 500 / 500 2,500 mcg In 250 ml @ 50 MCG/HR 5 mls/hr IV.SIG TITRATE PRN Rx #:[id number] Tube Feeding 282 / 282 299 / 299 Output: Urine Amount (Catheter) 600 / 600 900 / 900 Indwelling Urethral Catheter 600 / 600 900 / 900 Other: Date of Last Bowel Movement 09/21/18 09/21/18 # Bowel Movements 0 2 Narrative: intubated, sedated splint RUE, cap refill dressing R hip c/d/i splint RLE intact, cap refill swelling/ecchymosis L foot - Urinary Catheter Management Indwelling Urethral Catheter Cath placed during this visit: yes Reason for continuing: Hourly intake/output Insertion date: 09/14/18 Insertion time: 00:00 Results - Labs CBC & Chem 7: 09/21/18 04:00 09/21/18 04:00 Laboratory Results - last 24 hr 09/18/18 09/21/18 09/21/18 06:51 04:00 04:00 WBC 9.9 RBC 2.51 L Hgb 8.3 L Hct 23.7 L MCV 94.2 MCH 33.1 MCHC 35.2 RDW 14.6 Plt Count 332 MPV 7.2 Prelim Diff (Auto) Slide review pending Neut % (Auto) 64.1 Lymph % (Auto) 18.7 [place] % (Auto) 13.0 H Eos % (Auto) 3.4 Baso % (Auto) 0.8 Neut # (Auto) 6.4 Lymph # (Auto) 1.9 [place] # (Auto) 1.3 H Eos # (Auto) 0.3 Baso # (Auto) 0.1 WBC Differential Manual diff final Seg Neuts % (Manual) 60 Band Neuts % (Manual) 14 H Lymphocytes % (Manual) 11 Monocytes % (Manual) 6 Eosinophils % (Manual) 3 Metamyelocytes % (Man) 1 Myelocytes % (Man) 4 H Promyelocytes % (Man) 1 H Abs Neuts (Manual) 7.9 H Nucleated RBCs/100 WBC 1 H Differential Comment . Platelet Estimate Normal Platelet Morphology Normal Basophilic Stippling Faint H Keratocytes Occ H Hematology Comments Puncture Site Patient Temperature O2 Saturation ABG pH ABG pCO2 ABG pO2 ABG HCO3 ABG O2 Content ABG Base Excess ABG Methemoglobin Humphrey Test Hemoglobin Carboxyhemoglobin O2 Delivery Device Vent Setting Inspired O2 Critical Value Sodium 146 H Potassium 3.2 L Chloride 111 H Carbon Dioxide 29.7 Anion Gap 5 BUN 10 Creatinine 0.68 Estimated GFR Greater than 89 Random Glucose 118 H Calcium 7.3 L* Calcium Adj for Albumin 9.1 Total Bilirubin 1.2 H AST 119 H ALT 65 Alkaline Phosphatase 204 H Total Protein 5.3 L Albumin 1.7 L MTS Gel Crossmatch See Detail 09/21/18 05:30 WBC RBC Hgb Hct MCV MCH MCHC RDW Plt Count MPV Prelim Diff (Auto) Neut % (Auto) Lymph % (Auto) [place] % (Auto) Eos % (Auto) Baso % (Auto) Neut # (Auto) Lymph # (Auto) [place] # (Auto) Eos # (Auto) Baso # (Auto) WBC Differential Seg Neuts % (Manual) Band Neuts % (Manual) Lymphocytes % (Manual) Monocytes % (Manual) Eosinophils % (Manual) Metamyelocytes % (Man) Myelocytes % (Man) Promyelocytes % (Man) Abs Neuts (Manual) Nucleated RBCs/100 WBC Differential Comment Platelet Estimate Platelet Morphology Basophilic Stippling Keratocytes Hematology Comments Puncture Site Left brachial Patient Temperature 98.6 O2 Saturation 95 ABG pH 7.48 H ABG pCO2 37 L ABG pO2 102 ABG HCO3 27 H ABG O2 Content 11.2 L ABG Base Excess 4.0 H ABG Methemoglobin 1.5 Humphrey Test Present Hemoglobin 8.2 L Carboxyhemoglobin 1.8 O2 Delivery Device Vent Vent Setting Prvc/ac Inspired O2 40 Critical Value No Sodium Potassium Chloride Carbon Dioxide Anion Gap BUN Creatinine Estimated GFR Random Glucose Calcium Calcium Adj for Albumin Total Bilirubin AST ALT Alkaline Phosphatase Total Protein Albumin MTS Gel Crossmatch - Imaging Impressions Foot CT 09/20/18 00:00 CONCLUSION: 1. Fractures involving the plantar bases of the first through fourth metatarsal shafts, the intermediate cuneiforms bone and a markedly comminuted fracture involving the proximal aspect of the first distal phalangeal bone. Chest X-Ray 09/21/18 06:00 CONCLUSION: 1. No significant interval change. 2. Stable tubes and lines, as above. 3. Stable mild left lower lobe airspace disease. Assessment and Plan - Assessment and Plan 1) right acetabular fracture dislocation with ORIF and removal of skeletal traction - POD 2 2) comminuted right proximal ulna fracture dislocation 3) right knee laceration s/p I&D and closure - POD 6 4) right fibula fracture with ankle subluxation s/p splinting - nonop 5) right foot cuboid fracture - nonop 6) left foot first toe distal phalanx fracture, fractures 1-4 metatarsal shaft, intermediated cuneiform -Nonweightbearing right upper extremity and right lower extremity Maintain splint to right upper extremity and right ankle Maintain dressing over posterior hip for 5 days then convert over to [place] every other day. May begin changing dressings sooner if drainage or disheveled Lovenox -We will order CT of the left foot and x-rays of right ankle after surgery We will plan on surgery next week for the right arm when the patient is more stable
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
[2018-09-21] MEDS: QUEtiapine 100 MG Tablet PO SCH (20:01)
[2018-09-22] MEDS: Oral Hygiene Kit OROPHARYNG SCH ×5 (01:47→23:01)
[2018-09-22] MEDS: Midazolam 100 MG/100 ML Inj 100 MG/100 ML BAG IV.CONT PRN ×3 (01:47→19:01)
[2018-09-22] MEDS: Propofol 1000 mg/100 ml Inj 1,000 MG/100 ML BOTTLE IV.CONT PRN ×4 (01:47→21:00)
[2018-09-22] MEDS: fentaNYL 10 mcg/mL Premix Drip 2,500 MCG/250 ML BAG IV.SIG PRN ×3 (03:57→21:01)
[2018-09-22 04:29] LABS: Baso # (Auto) 0.1 th/mm3 (0.0-0.2); Eos # (Auto) 0.5 th/mm3 (0.0-0.4); Hematocrit 25.5 % (39.0-51.0); Hemoglobin 8.7 gm/dL (13.0-17.0); Lymph # (Auto) 2.2 th/mm3 (1.0-4.8); Lymph % (Auto) 19.7 % (9.0-44.0); Mean Corpuscular Hemoglobin 32.6 pg (27.0-34.0); Mean Corpuscular Volume 95.6 fL (80.0-100.0); Mono # (Auto) 1.4 th/mm3 (0.0-0.9); Mono % (Auto) 12.4 % (0.0-8.0); Neut # (Auto) 7.2 th/mm3 (1.8-7.7); Neut % (Auto) 62.9 % (16.0-70.0); Platelet Count 412 th/mm3 (150-450); Red Blood Count 2.66 mil/mm3 (4.50-5.90); Red Cell Distribution Width 14.9 % (11.6-17.2); White Blood Count 11.4 th/mm3 (4.0-11.0)
[2018-09-22 04:49] LABS: Alanine Aminotransferase 48 U/L (12-78); Albumin 1.7 g/dL (3.4-5.0); Anion Gap 6 meq/L (5-15); Aspartate Aminotransferase 49 U/L (15-37); Blood Urea Nitrogen 10 mg/dL (7-18); Calcium 7.6 mg/dL (8.5-10.1); Carbon Dioxide 27.6 meq/L (21.0-32.0); Chloride 112 meq/L (98-107); Glomerular Filtration Rate Greater Than 89 mL/min (>89); Glucose,Random 131 mg/dL (74-106); Potassium 3.7 meq/L (3.5-5.1); Sodium 146 meq/L (136-145)
[2018-09-22 04:52] LABS: Alkaline Phosphatase 189 U/L (45-117); Total Protein 5.6 g/dL (6.4-8.2)
--- NOTE | 2018-09-22 05:40 | XR ---
EXAM DATE: 09/22/2018 4:48 AM EST AGE/SEX: 37 years / Male INDICATIONS: Respiratory distress. CLINICAL DATA: This is the patient's subsequent encounter. Patient reports that signs and symptoms h ave been present for 1 week and indicates a pain score of Nonresponsive. MEDICAL/SURGICAL HISTORY: Hypertension. . Central line. COMPARISON: [facility], CHEST 1V SINGLE AP, 09/21/2018. . FINDINGS: Endotracheal tube nasogastric tube and left subclavian central line are stable in good position. Ther e is persistent bilateral perihilar and left base infiltrate. Cardiac contours are grossly unchanged CONCLUSION: No significant change Electronically signed by: Oscar Downey MD Board Certified Radiologist 09/22/2018 5:39 AM EST
[2018-09-22] MEDS: Metoprolol Inj 5 MG/5 ML Vial IV.PUSH SCH ×4 (05:54→21:00)
[2018-09-22] MEDS: QUEtiapine 25 MG Tablet PO SCH ×2 (06:27→14:22)
[2018-09-22] MEDS: Pantoprazole Inj 40 MG Vial IV.PUSH SCH (06:27)
[2018-09-22] MEDS: Sod Chloride 0.9% Inj 1,000 ML IV.CONT SCH (06:28)
[2018-09-22 06:39] LABS: ABG Base Excess 3.4 mmol/L (-2-2); ABG PCO2 42 mmHg (38-42); ABG PO2 136 mmHg (61-120)
--- NOTE | 2018-09-22 06:42 | P.PNOP ---
Subjective Interval history: POD 3 s/p ORIF right acetabulum s/p right olecranon fx s/p left cuboid/MT fxs s/p Right ankle subluxation with fibula fx intubated/sedated Physical Exam Vital signs: Vital Signs 09/21/18 07:00 09/21/18 07:17 09/21/18 08:00 Temperature 98.3 F Pulse Rate 79 80 Respiratory Rate 16 16 16 Blood Pressure 110/65 111/68 Pulse Oximetry 98 97 99 09/21/18 09:00 09/21/18 10:00 09/21/18 11:00 Temperature Pulse Rate 89 89 83 Respiratory Rate 16 17 12 Blood Pressure 131/80 128/77 114/61 Pulse Oximetry 97 93 L 94 L 09/21/18 11:10 09/21/18 12:00 09/21/18 13:00 Temperature 100.2 F H Pulse Rate 81 79 Respiratory Rate 12 12 12 Blood Pressure 117/59 L 119/66 Pulse Oximetry 95 94 L 98 09/21/18 14:00 09/21/18 15:00 09/21/18 15:05 Temperature Pulse Rate 78 109 H Respiratory Rate 12 18 12 Blood Pressure 128/69 146/91 H Pulse Oximetry 98 98 97 09/21/18 16:00 09/21/18 17:00 09/21/18 17:30 Temperature 100.2 F H Pulse Rate 87 87 Respiratory Rate 12 12 Blood Pressure 124/70 115/69 116/66 Pulse Oximetry 96 99 09/21/18 18:00 09/21/18 19:00 09/21/18 19:30 Temperature Pulse Rate 84 119 H 92 H Respiratory Rate 12 15 12 Blood Pressure 111/59 L 163/96 H 121/65 Pulse Oximetry 95 100 100 09/21/18 20:00 09/21/18 20:30 09/21/18 20:33 Temperature 98.4 F Pulse Rate 92 H 100 H Respiratory Rate 12 12 16 Blood Pressure 113/58 L 119/73 Pulse Oximetry 97 100 99 09/21/18 21:00 09/21/18 21:30 09/21/18 22:00 Temperature Pulse Rate 114 H 99 H 101 H Respiratory Rate 14 14 12 Blood Pressure 142/89 H 139/80 142/89 H Pulse Oximetry 98 100 100 09/21/18 22:30 09/21/18 23:00 09/21/18 23:30 Temperature Pulse Rate 98 H 91 H 93 H Respiratory Rate 12 12 12 Blood Pressure 143/82 H 128/77 127/78 Pulse Oximetry 100 99 99 09/22/18 00:00 09/22/18 00:30 09/22/18 01:00 Temperature 98 F Pulse Rate 87 82 78 Respiratory Rate 12 12 12 Blood Pressure 108/58 L 99/56 L 96/55 L Pulse Oximetry 98 99 99 09/22/18 01:30 09/22/18 02:00 09/22/18 02:30 Temperature Pulse Rate 74 78 80 Respiratory Rate 12 12 12 Blood Pressure 93/50 L 100/58 L 103/56 L Pulse Oximetry 99 100 99 09/22/18 03:00 09/22/18 03:11 09/22/18 03:30 Temperature Pulse Rate 90 91 H Respiratory Rate 12 15 12 Blood Pressure 131/86 132/79 Pulse Oximetry 100 99 100 09/22/18 04:00 09/22/18 04:23 09/22/18 04:30 Temperature Pulse Rate 112 H 112 H 99 H Respiratory Rate 14 15 12 Blood Pressure 135/99 H 147/83 H 131/80 Pulse Oximetry 100 100 99 09/22/18 05:00 09/22/18 05:30 09/22/18 06:00 Temperature Pulse Rate 86 80 78 Respiratory Rate 12 12 12 Blood Pressure 107/58 L 102/57 L 92/55 L Pulse Oximetry 98 99 99 09/22/18 06:30 Temperature Pulse Rate 75 Respiratory Rate 12 Blood Pressure 109/64 Pulse Oximetry 100 Intake & Output 09/21/18 09/21/18 09/22/18 06:59 18:59 06:59 Intake Total 2916.5 / 2916.5 2672.2 / 2672.2 1823.3 / 1823.3 Output Total 900 / 900 2350 / 2350 1250 / 1250 Balance 322.2 / 322.2 573.3 / 573.3 Intake: IV 2617.5 / 2617.5 2461.2 / 2461.2 1526.3 / 1526.3 LR 1000 mL Inj 1,000 ML @ 100 1000 / 1000 750 / 750 mls/hr IV.CONT .Q10H [facility] Rx#: [id number] Versed Inj 100 mg In 100 ml @ 5 200 / 200 123.7 / 123.7 76.3 / 76.3 MG/HR 5 mls/hr IV.CONT TITRATE PRN Rx#:[id number] Diprivan 1000 mg/100 ml Inj 1, 300 / 300 246 / 246 200 / 200 000 mg In 100 ml @ 5 MCG/KG/MIN 2.493 mls/hr IV.CONT TITRATE PRN Rx#:[id number] NS Inj 1,000 ML @ 50 mls/hr IV. 424 / 424 1000 / 1000 CONT .Q20H [facility] Rx#:[id number] KCl 40 mEq Premix Inj 40 meq In 100 / 100 100 ml @ 25 mls/hr IV.SIG Q2H [facility] Rx#:[id number] Vancomycin Inj 1,750 MG In NS 517.5 / 517.5 517.5 / 517.5 Inj 500 ML @ 250 mls/hr IV.SIG Q12H [facility] Rx#:[id number] Ancef 2 GM Premix Inj 2 gm In 100 / 100 50 / 50 50 ml @ 100 mls/hr IV.SIG Q8H [facility] Rx#:[id number] fentaNYL 10 mcg/mL Premix Drip 500 / 500 250 / 250 250 / 250 2,500 mcg In 250 ml @ 50 MCG/HR 5 mls/hr IV.SIG TITRATE PRN Rx #:[id number] Tube Feeding 299 / 299 121 / 121 237 / 237 Water Bolus Amount 60 / 60 Other 90 / 90 Output: Urine Amount (Catheter) 900 / 900 2350 / 2350 1250 / 1250 Indwelling Urethral Catheter 900 / 900 2350 / 2350 1250 / 1250 Other: Date of Last Bowel Movement 09/21/18 09/21/18 09/21/18 # Bowel Movements 2 # Incontinent Bowel Movements 2 Narrative: RLE: dressing clean and dry. intact. +CKS. +ankle splint LLE: bruising of ankle and foot RUE: +long arm splint - Urinary Catheter Management Indwelling Urethral Catheter Cath placed during this visit: yes Reason for continuing: Hourly intake/output Insertion date: 09/14/18 Insertion time: 00:00 Results - Labs CBC & Chem 7: 09/22/18 04:10 09/22/18 04:10 Laboratory Results - last 24 hr 02/0709/21/18 09/21/18 06:51 04:00 18:42 WBC RBC Hgb Hct MCV MCH MCHC RDW Plt Count MPV Prelim Diff (Auto) Neut % (Auto) Lymph % (Auto) [place] % (Auto) Eos % (Auto) Baso % (Auto) Neut # (Auto) Lymph # (Auto) [place] # (Auto) Eos # (Auto) Baso # (Auto) WBC Differential Manual diff final Seg Neuts % (Manual) 60 Band Neuts % (Manual) 14 H Lymphocytes % (Manual) 11 Monocytes % (Manual) 6 Eosinophils % (Manual) 3 Metamyelocytes % (Man) 1 Myelocytes % (Man) 4 H Promyelocytes % (Man) 1 H Abs Neuts (Manual) 7.9 H Nucleated RBCs/100 WBC 1 H Differential Comment Platelet Estimate Normal Platelet Morphology Normal Basophilic Stippling Faint H Keratocytes Occ H Sodium Potassium 3.8 Chloride Carbon Dioxide Anion Gap BUN Creatinine Estimated GFR Random Glucose Calcium Total Bilirubin AST ALT Alkaline Phosphatase Total Protein Albumin MTS Gel Crossmatch See Detail 09/22/18 09/22/18 04:10 04:10 WBC 11.4 H RBC 2.66 L Hgb 8.7 L Hct 25.5 L MCV 95.6 MCH 32.6 MCHC 34.0 RDW 14.9 Plt Count 412 MPV 7.0 Prelim Diff (Auto) Slide review pending Neut % (Auto) 62.9 Lymph % (Auto) 19.7 [place] % (Auto) 12.4 H Eos % (Auto) 4.0 Baso % (Auto) 1.0 Neut # (Auto) 7.2 Lymph # (Auto) 2.2 [place] # (Auto) 1.4 H Eos # (Auto) 0.5 H Baso # (Auto) 0.1 WBC Differential Seg Neuts % (Manual) Band Neuts % (Manual) Lymphocytes % (Manual) Monocytes % (Manual) Eosinophils % (Manual) Metamyelocytes % (Man) Myelocytes % (Man) Promyelocytes % (Man) Abs Neuts (Manual) Nucleated RBCs/100 WBC Differential Comment . Platelet Estimate Platelet Morphology Basophilic Stippling Keratocytes Sodium 146 H Potassium 3.7 Chloride 112 H Carbon Dioxide 27.6 Anion Gap 6 BUN 10 Creatinine 0.66 Estimated GFR Greater than 89 Random Glucose 131 H Calcium 7.6 L Total Bilirubin 0.9 AST 49 H ALT 48 Alkaline Phosphatase 189 H Total Protein 5.6 L Albumin 1.7 L MTS Gel Crossmatch - Imaging Impressions Chest X-Ray 09/22/18 06:00 CONCLUSION: No significant change Assessment and Plan - Assessment and Plan 1) right acetabular fracture dislocation with ORIF and removal of skeletal traction - POD 3 2) comminuted right proximal ulna fracture dislocation 3) right knee laceration s/p I&D and closure - POD 7 4) right fibula fracture with ankle subluxation s/p splinting - nonop 5) right foot cuboid fracture - nonop 6) left foot first toe distal phalanx fracture, fractures 1-4 metatarsal shaft, intermediated cuneiform -Nonweightbearing right upper extremity and right lower extremity Maintain splint to right upper extremity and right ankle Maintain dressing over posterior hip for 5 days then convert over to [place] every other day. May begin changing dressings sooner if drainage or disheveled Lovenox sign consent plan for ORIF of elbow today with oliver
[2018-09-22] MEDS ORDERED: Ketorolac Inj 30 MG/ML (IVP) Vial IV.PUSH ONE (07:33)
[2018-09-22] MEDS ORDERED: Sodium Chlor 0.9% Inj 250 ML IV.CONT ONE (07:33)
[2018-09-22] MEDS ORDERED: Sodium Chlor 0.9% Inj 500 ML IV.CONT ONE (07:33)
[2018-09-22] MEDS ORDERED: Glycopyrrolate Inj 1 MG/5 ML Syringe IV.PUSH ONE (07:33)
[2018-09-22] MEDS ORDERED: Neostigmine Inj 5 MG/5 ML Syringe IV.PUSH ONE (07:33)
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
[2018-09-22 08:48] LABS: Eosinophils 3 % (0-4); Lymphocytes 13 % (9-44); Metamyelocytes 3 % (0-1); Monocytes 6 % (0-8); Myelocytes 7 % (0-0)
[2018-09-22 08:49] LABS: Dimorphic RBC Present; Platelet Estimate Normal (Normal); Platelet Morphology Normal (Normal); Polychromasia 2.2 % (0.0-1.9)
--- NOTE | 2018-09-22 09:36 | P.OP ---
- Preoperative Diagnosis (1) Fracture, Anel's, right arm, closed Date of procedure: 09/22/18 Procedure: Open reduction internal fixation comminuted right proximal ulna fracture with open reduction right radial head dislocation Anesthesia: DEVIN Surgeon: Steve Kumar MD Senior Windows Engineer: ANU Mancia PA-C The surgical procedure was assisted by my physician assistant reading teacher. My P.A. presence was necessary throughout this case for the manipulation and positioning of the surgical extremity. My P.A. was assisting me throughout the duration of this procedure. The skill set of a physician assistant reading teacher was medically necessary to complete this procedure. During the surgical case the registered nurse surgical services was working at the back table and the physician assistant reading teacher was directly assisting me. Operation and Findings: Implants used: Synthes Details of procedure: Patient was seen and evaluated preoperatively. Patient was found to have a displaced intra-articular olecranon fracture with dislocation of radial head. The risk and benefits of the surgery were discussed in depth and informed consent was obtained from patient's . Patient has been intubated and sedated in intensive care. Risk of surgery include bleeding, infection, painful hardware, wound, case, elbow stiffness, loss of motion, elbow arthritis, injuries to arteries nerves or blood vessels, weakness and numbness of hand, as well as medical complications associated with general anesthesia. All questions were answered. Patient was brought to operating room. IV sedation and anesthesia were administered. Patient was placed into a lateral decubitus position. Timeout procedure was performed. IV antibiotics were administered prior to incision. The operative arm was prepped with alcohol followed by Hibiclens and draped in usual sterile fashion. Procedure began with a 7 inch incision over the olecranon proximal ulna. Subcutaneous tissue dissected with Bovie. Fracture site was visualized. Fascia was elevated around the fracture site. There was severe comminution of the fracture including the articular surface and metaphyseal region. At this point attention was turned toward reduction of the radial head. The radial head was visualized through the olecranon fracture. Traction was applied. The radial head was reduced to the capitellum. Next attention was turned towards reduction of the fracture. Fracture fragments were gently manipulated. A fracture tenaculum was used to aid in reduction. The large medial fragment was reduced and keyed into the shaft fragment. The articular surface was depressed. The articular surface was elevated using a [place]. Cancellous bone chips were now packed underneath the articular surface fragments to hold them in elevated position. The remainder of the olecranon fragments were now reduced. Multiple K wires result provisional fixation. A Synthes proximal plate was selected. Plate was provisionally held with K wires 3.5 cortical screws were used to compress plate to bone. Multiple cortical screws were placed in the ulna shaft. Multiple locking screws were placed in the proximal ulna. All screws were predrilled and premeasured for appropriate length. K wires were removed. Final fluoroscopy revealed appropriate of fractures well-placed hardware. The radial head remained in a reduced position. Articular surface appeared to be in near anatomic alignment. Wound was now thoroughly irrigated. Incision was now closed with #1 Vicryl, 3-0 Vicryl, and mirta. Sterile dressings were applied. Patient's placed a well molded well-padded splint. Patient was transferred to intensive care unit.
[2018-09-22] MEDS: Chlorhexidine 0.12% Oral Kit 15 ML UDC OROPHARYNG SCH ×2 (10:15→20:44)
[2018-09-22] MEDS: Indomethacin 75 MG ER Capsule PO SCH (11:06)
[2018-09-22] MEDS: Enoxaparin Inj 30 MG/0.3 ML Syringe SQ SCH ×2 (11:06→20:43)
[2018-09-22] MEDS: Senna/Docusate Sodium 8.6/50 MG Tablet PO SCH ×2 (11:07→20:42)
[2018-09-22] MEDS: Sodium Chloride 0.9% 2 ML Flush BID IV.FLUSH SCH ×2 (11:07→20:44)
--- NOTE | 2018-09-22 13:43 | XR ---
EXAM DATE: 09/22/2018 12:43 PM EST AGE/SEX: 37 years / Male INDICATIONS: RIGHT ELBOW ORIF. CLINICAL DATA: This is the patient's initial encounter. Patient reports that signs and symptoms have been present for 1 day and indicates a pain score of Nonresponsive. MEDICAL/SURGICAL HISTORY: Non-responsive. Non-responsive. COMPARISON: No prior exams available for comparison. FINDINGS: 6 images are recorded digitally in the operating room using C-arm during placement of a proximal ulna r plate and multiple screws. CONCLUSION: Intraoperative images. Electronically signed by: Obie Rodriguez MD Board Certified Radiologist 09/22/2018 1:42 PM EST
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
[2018-09-22] MEDS: ceFAZolin 2 GM Premix Inj 2 GM/50 ML PIGGYBACK IV.SIG SCH ×2 (16:13→23:01)
[2018-09-22] MEDS: QUEtiapine 100 MG Tablet PO SCH (20:42)
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
[2018-09-22] MEDS: Haloperidol Inj 5 MG/ML Ampul IV.PUSH PRN (21:16)
[2018-09-23] MEDS: Propofol 1000 mg/100 ml Inj 1,000 MG/100 ML BOTTLE IV.CONT PRN ×4 (02:16→22:04)
[2018-09-23] MEDS: Midazolam 100 MG/100 ML Inj 100 MG/100 ML BAG IV.CONT PRN ×2 (02:16→13:08)
[2018-09-23] MEDS: Metoprolol Inj 5 MG/5 ML Vial IV.PUSH SCH ×4 (04:04→21:18)
[2018-09-23] MEDS: Sod Chloride 0.9% Inj 1,000 ML IV.CONT SCH (04:04)
[2018-09-23] MEDS: Oral Hygiene Kit OROPHARYNG SCH ×3 (04:04→15:45)
--- NOTE | 2018-09-23 04:06 | XR ---
EXAM DATE: 09/23/2018 3:57 AM EST AGE/SEX: 37 years / Male INDICATIONS: Respiratory distress. CLINICAL DATA: This is the patient's subsequent encounter. Patient reports that signs and symptoms h ave been present for 1 week and indicates a pain score of Nonresponsive. MEDICAL/SURGICAL HISTORY: Hypertension. . Central line. COMPARISON: C, CHEST 1V SINGLE AP, 09/22/2018. . FINDINGS: Endotracheal tube is present with tip 4 cm above the jairo. Nasogastric tube descends into the stoma ch. Left subclavian central catheter is stable. Left base consolidation and effusion persist. Right l nas is also completely clear at this point. Cardiac contours are unchanged. CONCLUSION: Continued improvement in aeration. Electronically signed by: Oscar Downey MD Board Certified Radiologist 09/23/2018 4:04 AM EST
[2018-09-23 05:39] LABS: ABG Base Excess 2.4 mmol/L (-2-2); ABG PCO2 43 mmHg (38-42); ABG PO2 133 mmHg (61-120)
[2018-09-23] MEDS: Pantoprazole Inj 40 MG Vial IV.PUSH SCH (06:00)
[2018-09-23] MEDS: QUEtiapine 25 MG Tablet PO SCH (06:01)
[2018-09-23 06:12] LABS: Baso # (Auto) 0.1 th/mm3 (0.0-0.2); Baso % (Auto) 0.6 % (0.0-2.0); Eos # (Auto) 0.4 th/mm3 (0.0-0.4); Eos % (Auto) 3.4 % (0.0-4.0); Hemoglobin 7.1 gm/dL (13.0-17.0); Lymph # (Auto) 1.8 th/mm3 (1.0-4.8); Lymph % (Auto) 15.3 % (9.0-44.0); Mean Corpuscular HGB Conc 34.5 % (32.0-36.0); Mean Corpuscular Hemoglobin 33.1 pg (27.0-34.0); Mean Corpuscular Volume 96.1 fL (80.0-100.0); Mean Platelet Volume 6.9 fL (7.0-11.0); Mono # (Auto) 1.6 th/mm3 (0.0-0.9); Mono % (Auto) 13.4 % (0.0-8.0); Neut # (Auto) 8.1 th/mm3 (1.8-7.7); Neut % (Auto) 67.3 % (16.0-70.0); Platelet Count 488 th/mm3 (150-450); Red Blood Count 2.15 mil/mm3 (4.50-5.90); Red Cell Distribution Width 14.6 % (11.6-17.2)
[2018-09-23 06:17] LABS: Hematocrit 20.7 % (39.0-51.0)
[2018-09-23 06:35] LABS: Alanine Aminotransferase 32 U/L (12-78); Albumin 1.7 g/dL (3.4-5.0); Anion Gap 6 meq/L (5-15); Aspartate Aminotransferase 32 U/L (15-37); Blood Urea Nitrogen 12 mg/dL (7-18); Calcium 7.6 mg/dL (8.5-10.1); Carbon Dioxide 28.5 meq/L (21.0-32.0); Chloride 110 meq/L (98-107); Glomerular Filtration Rate Greater Than 89 mL/min (>89); Glucose,Random 122 mg/dL (74-106); Potassium 3.5 meq/L (3.5-5.1); Sodium 144 meq/L (136-145)
[2018-09-23 06:37] LABS: Alkaline Phosphatase 171 U/L (45-117); Total Protein 5.3 g/dL (6.4-8.2)
--- NOTE | 2018-09-23 07:02 | P.PNOP ---
Subjective Interval history: POD 1 s/p ORIF right olecranon POD 4 s/p ORIF right acetabulum s/p right knee laceration closure s/p right fibula fx with ankle subluxation s/p left midfoot fxs intubated/sedated. no changes Physical Exam Vital signs: Vital Signs 09/22/18 07:00 09/22/18 07:35 09/22/18 10:15 Temperature 98.4 F Pulse Rate 94 H 89 Respiratory Rate 12 16 Blood Pressure 147/93 H 120/83 Pulse Oximetry 100 100 95 09/22/18 10:59 09/22/18 11:00 09/22/18 12:00 Temperature Pulse Rate 108 H 80 Respiratory Rate 15 13 12 Blood Pressure 157/91 H 124/69 Pulse Oximetry 99 99 97 09/22/18 13:00 09/22/18 14:00 09/22/18 15:00 Temperature Pulse Rate 73 73 74 Respiratory Rate 12 12 12 Blood Pressure 108/57 L 114/69 108/60 Pulse Oximetry 97 98 97 09/22/18 15:25 09/22/18 16:00 09/22/18 17:00 Temperature 98.5 F Pulse Rate 103 H 117 H Respiratory Rate 12 15 18 Blood Pressure 146/90 H 143/79 H Pulse Oximetry 96 100 88 L 09/22/18 18:00 09/22/18 19:00 09/22/18 20:00 Temperature 100.7 F H Pulse Rate 122 H 109 H 131 H Respiratory Rate 14 13 20 Blood Pressure 169/90 H 160/93 H 152/99 H Pulse Oximetry 98 100 96 09/22/18 20:08 09/22/18 21:00 09/22/18 21:02 Temperature Pulse Rate 122 H 130 H Respiratory Rate 16 16 Blood Pressure 155/114 H 164/100 H Pulse Oximetry 99 100 100 09/22/18 22:00 09/22/18 23:00 09/23/18 00:00 Temperature 99.8 F H Pulse Rate 109 H 108 H 108 H Respiratory Rate 15 15 12 Blood Pressure 129/71 131/69 132/66 Pulse Oximetry 100 97 97 09/23/18 00:26 09/23/18 01:00 09/23/18 02:00 Temperature Pulse Rate 103 H 96 H Respiratory Rate 13 13 13 Blood Pressure 107/51 L 100/50 L Pulse Oximetry 97 96 96 09/23/18 03:00 09/23/18 03:45 09/23/18 04:00 Temperature 99.4 F Pulse Rate 90 93 H Respiratory Rate 12 12 13 Blood Pressure 104/57 L 106/58 L Pulse Oximetry 96 96 99 09/23/18 05:00 09/23/18 06:00 Temperature Pulse Rate 84 87 Respiratory Rate 12 12 Blood Pressure 88/52 L 110/56 L Pulse Oximetry 97 96 Intake & Output 09/22/18 09/22/18 09/23/18 06:59 18:59 06:59 Intake Total 1923.3 / 1923.3 707 / 707 2597.1 / 2597.1 Output Total 1250 / 1250 1100 / 1100 750 / 750 Balance 673.3 / 673.3 -393 / -393 1847.1 / 1847.1 Weight 102.6 kg Intake: IV 1626.3 / 1626.3 500 / 500 2232.1 / 2232.1 Versed Inj 100 mg In 100 ml @ 5 76.3 / 76.3 100 / 100 200 / 200 MG/HR 5 mls/hr IV.CONT TITRATE PRN Rx#:[id number] Diprivan 1000 mg/100 ml Inj 1, 300 / 300 100 / 100 273.2 / 273.2 000 mg In 100 ml @ 5 MCG/KG/MIN 2.493 mls/hr IV.CONT TITRATE PRN Rx#:[id number] NS Inj 1,000 ML @ 50 mls/hr IV. 1000 / 1000 1367 / 1367 CONT .Q20H [facility] Rx#:[id number] Ancef 2 GM Premix Inj 2 gm In 50 / 50 50 / 50 50 ml @ 100 mls/hr IV.SIG Q8H [facility] Rx#:[id number] fentaNYL 10 mcg/mL Premix Drip 250 / 250 250 / 250 341.9 / 341.9 2,500 mcg In 250 ml @ 50 MCG/HR 5 mls/hr IV.SIG TITRATE PRN Rx #:[id number] Tube Feeding 237 / 237 147 / 147 245 / 245 Tube Irrigant 120 / 120 Water Bolus Amount 60 / 60 Other 60 / 60 Output: Urine Amount (Catheter) 1250 / 1250 1100 / 1100 750 / 750 Indwelling Urethral Catheter 1250 / 1250 1100 / 1100 750 / 750 Other: Date of Last Bowel Movement 09/21/18 09/21/18 09/21/18 Narrative: RUE: +long arm splint. intact. +cap refill RLE: dressings clean and dry. intact. +CKS. +short leg splint LLE: +short leg splint - Urinary Catheter Management Indwelling Urethral Catheter Cath placed during this visit: yes Reason for continuing: Hourly intake/output Insertion date: 09/14/18 Insertion time: 00:00 Results - Labs CBC & Chem 7: 09/23/18 05:50 09/23/18 05:50 Laboratory Results - last 24 hr 09/22/18 09/22/18 09/23/18 04:10 06:40 05:33 WBC RBC Hgb Hct MCV MCH MCHC RDW Plt Count MPV Prelim Diff (Auto) Neut % (Auto) Lymph % (Auto) [place] % (Auto) Eos % (Auto) Baso % (Auto) Neut # (Auto) Lymph # (Auto) [place] # (Auto) Eos # (Auto) Baso # (Auto) WBC Differential Manual diff final Seg Neuts % (Manual) 52 Band Neuts % (Manual) 15 H Lymphocytes % (Manual) 13 Monocytes % (Manual) 6 Eosinophils % (Manual) 3 Basophils % (Manual) 1 Metamyelocytes % (Man) 3 H Myelocytes % (Man) 7 H Abs Neuts (Manual) 8.8 H Differential Comment Platelet Estimate Normal Platelet Morphology Normal Dimorphic RBCs Present H Polychromasia 2.2 H Puncture Site Left radial Patient Temperature 98.6 O2 Saturation 96 ABG pH 7.41 ABG pCO2 43 H ABG pO2 133 H ABG HCO3 27 H ABG O2 Content 11.4 L ABG Base Excess 2.4 H ABG Methemoglobin 1.5 Humphrey Test Present Hemoglobin 8.3 L Carboxyhemoglobin 1.6 O2 Delivery Device Ventilator Vent Setting Prvc/ ac Inspired O2 40 Critical Value No Sodium Potassium Chloride Carbon Dioxide Anion Gap BUN Creatinine Estimated GFR Random Glucose Calcium Total Bilirubin AST ALT Alkaline Phosphatase Total Protein Albumin Blood Type A Positive Antibody Screen Negative MTS Gel Crossmatch 09/23/18 09/23/18 09/23/18 05:50 05:50 06:45 WBC 12.0 H RBC 2.15 L Hgb 7.1 L Hct 20.7 L* MCV 96.1 MCH 33.1 MCHC 34.5 RDW 14.6 Plt Count 488 H MPV 6.9 L Prelim Diff (Auto) Slide review pending Neut % (Auto) 67.3 Lymph % (Auto) 15.3 [place] % (Auto) 13.4 H Eos % (Auto) 3.4 Baso % (Auto) 0.6 Neut # (Auto) 8.1 H Lymph # (Auto) 1.8 [place] # (Auto) 1.6 H Eos # (Auto) 0.4 Baso # (Auto) 0.1 WBC Differential Seg Neuts % (Manual) Band Neuts % (Manual) Lymphocytes % (Manual) Monocytes % (Manual) Eosinophils % (Manual) Basophils % (Manual) Metamyelocytes % (Man) Myelocytes % (Man) Abs Neuts (Manual) Differential Comment . Platelet Estimate Platelet Morphology Dimorphic RBCs Polychromasia Puncture Site Patient Temperature O2 Saturation ABG pH ABG pCO2 ABG pO2 ABG HCO3 ABG O2 Content ABG Base Excess ABG Methemoglobin Humphrey Test Hemoglobin Carboxyhemoglobin O2 Delivery Device Vent Setting Inspired O2 Critical Value Sodium 144 Potassium 3.5 Chloride 110 H Carbon Dioxide 28.5 Anion Gap 6 BUN 12 Creatinine 0.70 Estimated GFR Greater than 89 Random Glucose 122 H Calcium 7.6 L Total Bilirubin 0.7 AST 32 ALT 32 Alkaline Phosphatase 171 H Total Protein 5.3 L Albumin 1.7 L Blood Type Antibody Screen MTS Gel Crossmatch See Detail - Imaging Impressions Elbow X-Ray 09/22/18 00:00 CONCLUSION: Intraoperative images. Chest X-Ray 09/23/18 06:00 CONCLUSION: Continued improvement in aeration. Assessment and Plan - Assessment and Plan 1) right acetabular fracture dislocation with ORIF and removal of skeletal traction - POD 4 2) comminuted right proximal ulna fracture dislocation s/p ORIF - POD 1 3) right knee laceration s/p I&D and closure - POD 8 4) right fibula fracture with ankle subluxation s/p splinting - nonop 5) right foot cuboid fracture - nonop 6) left foot first toe distal phalanx fracture, fractures 1-4 metatarsal shaft, intermediated cuneiform fx - nonop -Nonweightbearing right upper extremity, right lower extremity, left lower extremity -Maintain splint to right upper extremity and right ankle and left ankle -Maintain dressing over posterior hip for 5 days then convert over to [place] every other day. May begin changing dressings sooner if drainage or disheveled -Lovenox -ortho surgeries complete at this time -patient will be non weight bearing to BLE and RUE for approx 3 months -will need extensive help and rehab -DVT prophylaxis -CM for DC planning when patient is stable -f/u with [facility] or [facility] in 2 weeks
[2018-09-23] MEDS: fentaNYL 10 mcg/mL Premix Drip 2,500 MCG/250 ML BAG IV.SIG PRN ×2 (07:44→19:55)
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
[2018-09-23 08:32] LABS: Eosinophils 5 % (0-4); Lymphocytes 18 % (9-44); Metamyelocytes 1 % (0-1); Monocytes 7 % (0-8); Myelocytes 1 % (0-0); Toxic Granulation 1+
[2018-09-23 08:34] LABS: Stomatocytes 1+
[2018-09-23 08:35] LABS: Platelet Morphology Normal (Normal)
[2018-09-23] MEDS: Senna/Docusate Sodium 8.6/50 MG Tablet PO SCH ×2 (09:06→20:11)
[2018-09-23] MEDS: Indomethacin 75 MG ER Capsule PO SCH (09:07)
[2018-09-23] MEDS: Enoxaparin Inj 30 MG/0.3 ML Syringe SQ SCH ×2 (09:07→20:11)
[2018-09-23] MEDS: Sodium Chloride 0.9% 2 ML Flush BID IV.FLUSH SCH ×2 (09:08→20:13)
[2018-09-23] MEDS: Chlorhexidine 0.12% Oral Kit 15 ML UDC OROPHARYNG SCH ×2 (09:12→20:11)
[2018-09-23] MEDS ORDERED: Haloperidol Inj 5 MG/ML Ampul IV.PUSH PRN (09:12)
[2018-09-23] MEDS: QUEtiapine 100 MG Tablet PO SCH ×3 (09:35→20:12)
[2018-09-23] MEDS: ceFAZolin 2 GM Premix Inj 2 GM/50 ML PIGGYBACK IV.SIG SCH ×2 (09:35→17:12)
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
[2018-09-23 15:26] LABS: Hematocrit 27.1 % (39.0-51.0)
[2018-09-24] MEDS: Midazolam 100 MG/100 ML Inj 100 MG/100 ML BAG IV.CONT PRN (00:03)
[2018-09-24] MEDS: ceFAZolin 2 GM Premix Inj 2 GM/50 ML PIGGYBACK IV.SIG SCH ×2 (00:03→08:41)
[2018-09-24] MEDS: Oral Hygiene Kit OROPHARYNG SCH ×3 (00:04→12:00)
[2018-09-24] MEDS: Sod Chloride 0.9% Inj 1,000 ML IV.CONT SCH (00:05)
[2018-09-24] MEDS: Propofol 1000 mg/100 ml Inj 1,000 MG/100 ML BOTTLE IV.CONT PRN ×2 (02:09→06:20)
[2018-09-24] MEDS: Metoprolol Inj 5 MG/5 ML Vial IV.PUSH SCH ×4 (03:08→22:54)
[2018-09-24] MEDS: Pantoprazole Inj 40 MG Vial IV.PUSH SCH (06:00)
[2018-09-24] MEDS: QUEtiapine 100 MG Tablet PO SCH ×3 (06:00→20:27)
[2018-09-24 06:27] LABS: Baso # (Auto) 0.1 th/mm3 (0.0-0.2); Baso % (Auto) 0.9 % (0.0-2.0); Eos # (Auto) 0.6 th/mm3 (0.0-0.4); Eos % (Auto) 4.3 % (0.0-4.0); Hematocrit 25.6 % (39.0-51.0); Hemoglobin 9.1 gm/dL (13.0-17.0); Lymph # (Auto) 1.8 th/mm3 (1.0-4.8); Lymph % (Auto) 13.5 % (9.0-44.0); Mean Corpuscular HGB Conc 35.6 % (32.0-36.0); Mean Corpuscular Hemoglobin 32.9 pg (27.0-34.0); Mean Corpuscular Volume 92.3 fL (80.0-100.0); Mean Platelet Volume 6.5 fL (7.0-11.0); Mono # (Auto) 1.4 th/mm3 (0.0-0.9); Mono % (Auto) 10.5 % (0.0-8.0); Neut # (Auto) 9.4 th/mm3 (1.8-7.7); Neut % (Auto) 70.8 % (16.0-70.0); Platelet Count 561 th/mm3 (150-450); Red Blood Count 2.77 mil/mm3 (4.50-5.90); Red Cell Distribution Width 14.9 % (11.6-17.2); White Blood Count 13.3 th/mm3 (4.0-11.0)
[2018-09-24 06:53] LABS: Anion Gap 7 meq/L (5-15); Blood Urea Nitrogen 11 mg/dL (7-18); Calcium 7.8 mg/dL (8.5-10.1); Carbon Dioxide 28.2 meq/L (21.0-32.0); Chloride 109 meq/L (98-107); Glomerular Filtration Rate Greater Than 89 mL/min (>89); Glucose,Random 113 mg/dL (74-106); Potassium 3.4 meq/L (3.5-5.1); Sodium 144 meq/L (136-145)
--- NOTE | 2018-09-24 06:57 | P.PNOP ---
Subjective Interval history: POD 5 s/p ORIF Right Acetabulum POD 2 s/p ORIF right olecranon s/p right knee laceration s/p right fibula fx s/p bilateral foot fxs Physical Exam Vital signs: Vital Signs 09/23/18 07:00 09/23/18 07:54 09/23/18 08:00 Temperature 99.1 F Pulse Rate 85 76 Respiratory Rate 12 12 12 Blood Pressure 89/50 L 92/54 L Pulse Oximetry 97 98 98 09/23/18 09:00 09/23/18 09:48 09/23/18 10:00 Temperature 99.1 F Pulse Rate 109 H 101 H Respiratory Rate 18 14 19 Blood Pressure 160/86 H 135/74 Pulse Oximetry 98 98 96 09/23/18 10:06 09/23/18 10:11 09/23/18 10:12 Temperature 99.9 F H 99.9 F H 99.0 F Pulse Rate 97 H 84 90 Respiratory Rate 11 L 12 12 Blood Pressure 135/74 126/71 126/71 Pulse Oximetry 97 98 98 09/23/18 11:00 09/23/18 12:00 09/23/18 12:06 Temperature 99.1 F Pulse Rate 97 H 97 H Respiratory Rate 14 13 11 L Blood Pressure 166/92 H 142/68 H Pulse Oximetry 97 97 96 09/23/18 13:00 09/23/18 14:00 09/23/18 15:00 Temperature Pulse Rate 99 H 109 H 109 H Respiratory Rate 12 9 L 17 Blood Pressure 147/78 H 169/101 H 161/92 H Pulse Oximetry 96 97 96 09/23/18 15:23 09/23/18 16:00 09/23/18 17:00 Temperature 100.2 F H Pulse Rate 100 H 108 H Respiratory Rate 17 16 17 Blood Pressure 167/96 H 149/87 H Pulse Oximetry 96 97 98 09/23/18 17:16 09/23/18 17:59 09/23/18 18:00 Temperature 99.3 F Pulse Rate 90 85 85 Respiratory Rate 17 16 22 Blood Pressure 143/83 H Pulse Oximetry 98 98 98 09/23/18 19:00 09/23/18 20:00 09/23/18 20:39 Temperature 100.8 F H Pulse Rate 96 H 102 H Respiratory Rate 22 22 17 Blood Pressure 168/96 H 163/93 H Pulse Oximetry 99 99 100 09/23/18 21:00 09/23/18 22:00 09/23/18 23:00 Temperature Pulse Rate 107 H 103 H 92 H Respiratory Rate 19 17 16 Blood Pressure 161/94 H 151/90 H 129/77 Pulse Oximetry 99 98 98 09/24/18 00:00 09/24/18 01:00 09/24/18 01:17 Temperature 99.5 F Pulse Rate 99 H 104 H Respiratory Rate 16 16 16 Blood Pressure 154/91 H 152/91 H Pulse Oximetry 99 100 100 09/24/18 02:00 09/24/18 03:00 09/24/18 03:46 Temperature Pulse Rate 100 H 101 H Respiratory Rate 16 18 16 Blood Pressure 146/94 H 156/96 H Pulse Oximetry 97 100 98 09/24/18 04:00 09/24/18 05:00 09/24/18 06:00 Temperature 99.6 F Pulse Rate 98 H 90 89 Respiratory Rate 21 20 22 Blood Pressure 151/88 H 143/82 H 136/73 Pulse Oximetry 100 100 98 Intake & Output 09/23/18 09/23/18 09/24/18 06:59 18:59 06:59 Intake Total 2597.1 / 2597.1 2673.4 / 2673.4 2182 / 2182 Output Total 750 / 750 1800 / 1800 2049 / 2049 Balance 1847.1 / 1847.1 873.4 / 873.4 132 / 132 Weight 102.6 kg 100.4 kg Intake: IV 2232.1 / 2232.1 1375.4 / 1375.4 1700 / 1700 Versed Inj 100 mg In 100 ml @ 5 200 / 200 133.1 / 133.1 100 / 100 MG/HR 5 mls/hr IV.CONT TITRATE PRN Rx#:[id number] Diprivan 1000 mg/100 ml Inj 1, 273.2 / 273.2 200 / 200 300 / 300 000 mg In 100 ml @ 5 MCG/KG/MIN 2.493 mls/hr IV.CONT TITRATE PRN Rx#:[id number] NS Inj 1,000 ML @ 50 mls/hr IV. 1367 / 1367 531 / 531 1000 / 1000 CONT .Q20H [facility] Rx#:[id number] Ancef 2 GM Premix Inj 2 gm In 50 / 50 100 / 100 50 / 50 50 ml @ 100 mls/hr IV.SIG Q8H [facility] Rx#:[id number] fentaNYL 10 mcg/mL Premix Drip 341.9 / 341.9 411.3 / 411.3 250 / 250 2,500 mcg In 250 ml @ 50 MCG/HR 5 mls/hr IV.SIG TITRATE PRN Rx #:[id number] Oral 120 / 120 Tube Feeding 245 / 245 98 / 98 242 / 242 Tube Irrigant 120 / 120 120 / 120 Other 400 / 400 Rbc As-3 Leukoreduced Unit 250 / 250 [id number] Intake (Blood Product) Amt 800 / 800 Rbc As-3 Leukoreduced Unit 400 / 400 [id number] Rbc As-3 Leukoreduced Unit 400 / 400 [id number] Output: Urine Amount (Catheter) 750 / 750 1800 / 1800 2049 Indwelling Urethral Catheter 750 / 750 1800 / 1800 2049 Other: Date of Last Bowel Movement 09/21/18 09/21/18 09/21/18 # Incontinent Bowel Movements 0 Narrative: RUE: +long arm splint. good cap refill RLE: dressing clean and dry. intact. +CKS. +splint. good cap refill LLE: +short leg splint - Urinary Catheter Management Indwelling Urethral Catheter Cath placed during this visit: yes Reason for continuing: Hourly intake/output Insertion date: 09/14/18 Insertion time: 00:00 Results - Labs CBC & Chem 7: 09/24/18 06:15 09/24/18 06:15 Laboratory Results - last 24 hr 09/23/18 09/23/18 09/23/18 05:50 06:45 14:57 WBC RBC Hgb 9.0 L Hct 27.1 L MCV MCH MCHC RDW Plt Count MPV Prelim Diff (Auto) Neut % (Auto) Lymph % (Auto) [place] % (Auto) Eos % (Auto) Baso % (Auto) Neut # (Auto) Lymph # (Auto) [place] # (Auto) Eos # (Auto) Baso # (Auto) WBC Differential Manual diff final Seg Neuts % (Manual) 58 Band Neuts % (Manual) 9 H Lymphocytes % (Manual) 18 Monocytes % (Manual) 7 Eosinophils % (Manual) 5 H Basophils % (Manual) 1 Metamyelocytes % (Man) 1 Myelocytes % (Man) 1 H Abs Neuts (Manual) 8.3 H Differential Comment Toxic Granulation 1+ H Platelet Estimate High H Platelet Morphology Normal Basophilic Stippling Faint H Stomatocytes 1+ H Sodium Potassium Chloride Carbon Dioxide Anion Gap BUN Creatinine Estimated GFR Random Glucose Calcium MTS Gel Crossmatch See Detail 09/24/18 09/24/18 06:15 06:15 WBC 13.3 H RBC 2.77 L Hgb 9.1 L Hct 25.6 L MCV 92.3 D MCH 32.9 MCHC 35.6 RDW 14.9 Plt Count 561 H MPV 6.5 L Prelim Diff (Auto) Slide review pending Neut % (Auto) 70.8 H Lymph % (Auto) 13.5 [place] % (Auto) 10.5 H Eos % (Auto) 4.3 H Baso % (Auto) 0.9 Neut # (Auto) 9.4 H Lymph # (Auto) 1.8 [place] # (Auto) 1.4 H Eos # (Auto) 0.6 H Baso # (Auto) 0.1 WBC Differential Seg Neuts % (Manual) Band Neuts % (Manual) Lymphocytes % (Manual) Monocytes % (Manual) Eosinophils % (Manual) Basophils % (Manual) Metamyelocytes % (Man) Myelocytes % (Man) Abs Neuts (Manual) Differential Comment . Toxic Granulation Platelet Estimate Platelet Morphology Basophilic Stippling Stomatocytes Sodium 144 Potassium 3.4 L Chloride 109 H Carbon Dioxide 28.2 Anion Gap 7 BUN 11 Creatinine 0.60 Estimated GFR Greater than 89 Random Glucose 113 H Calcium 7.8 L MTS Gel Crossmatch Assessment and Plan - Assessment and Plan 1) right acetabular fracture dislocation with ORIF and removal of skeletal traction - POD 5 2) comminuted right proximal ulna fracture dislocation s/p ORIF - POD 2 3) right knee laceration s/p I&D and closure - POD 9 4) right fibula fracture with ankle subluxation s/p splinting - nonop 5) right foot cuboid fracture - nonop 6) left foot first toe distal phalanx fracture, fractures 1-4 metatarsal shaft, intermediated cuneiform fx - nonop -Nonweightbearing right upper extremity, right lower extremity, left lower extremity -Maintain splint to right upper extremity and right ankle and left ankle -Maintain dressing over posterior hip for 5 days then convert over to [place] every other day. May begin changing dressings sooner if drainage or disheveled -Lovenox -ortho surgeries complete at this time -patient will be non weight bearing to BLE and RUE for approx 3 months -will need extensive help and rehab -DVT prophylaxis -CM for DC planning when patient is stable -f/u with [facility] or [facility] in 2 weeks
[2018-09-24 07:50] LABS: Eosinophils 2 % (0-4); Lymphocytes 11 % (9-44); Metamyelocytes 1 % (0-1); Monocytes 4 % (0-8); Myelocytes 1 % (0-0)
[2018-09-24 07:51] LABS: Platelet Morphology Normal (Normal); RBC Morphology Normal (Normal)
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
[2018-09-24] MEDS: Chlorhexidine 0.12% Oral Kit 15 ML UDC OROPHARYNG SCH (08:41)
[2018-09-24] MEDS: Enoxaparin Inj 30 MG/0.3 ML Syringe SQ SCH ×2 (08:41→20:26)
[2018-09-24] MEDS: fentaNYL 10 mcg/mL Premix Drip 2,500 MCG/250 ML BAG IV.SIG PRN (08:43)
[2018-09-24] MEDS: Senna/Docusate Sodium 8.6/50 MG Tablet PO SCH ×2 (08:43→20:28)
[2018-09-24] MEDS: Indomethacin 75 MG ER Capsule PO SCH (08:44)
[2018-09-24] MEDS: Sodium Chloride 0.9% 2 ML Flush BID IV.FLUSH SCH ×2 (08:44→20:27)
[2018-09-24] MEDS: Dexmedetomidine Inj 200 MCG in Sodium Chlor 0.9% Inj 48 ML IV.CONT PRN ×4 (09:59→21:59)
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
[2018-09-24] MEDS: Escitalopram 10 MG Tablet PO SCH (16:13)
[2018-09-24] MEDS: Lidocaine 5% Patch T-DERMAL SCH (16:14)
[2018-09-25] MEDS: Dexmedetomidine Inj 200 MCG in Sodium Chlor 0.9% Inj 48 ML IV.CONT PRN ×3 (01:32→07:18)
[2018-09-25] MEDS: Metoprolol Inj 5 MG/5 ML Vial IV.PUSH SCH (04:14)
[2018-09-25 05:12] LABS: Baso # (Auto) 0.1 th/mm3 (0.0-0.2); Baso % (Auto) 0.5 % (0.0-2.0); Eos # (Auto) 0.3 th/mm3 (0.0-0.4); Eos % (Auto) 1.8 % (0.0-4.0); Hematocrit 26.4 % (39.0-51.0); Hemoglobin 9.1 gm/dL (13.0-17.0); Lymph % (Auto) 11.1 % (9.0-44.0); Mean Corpuscular HGB Conc 34.3 % (32.0-36.0); Mean Corpuscular Hemoglobin 31.5 pg (27.0-34.0); Mean Corpuscular Volume 91.8 fL (80.0-100.0); Mean Platelet Volume 7.1 fL (7.0-11.0); Mono # (Auto) 1.4 th/mm3 (0.0-0.9); Neut % (Auto) 78.6 % (16.0-70.0); Platelet Count 614 th/mm3 (150-450); Red Blood Count 2.88 mil/mm3 (4.50-5.90); Red Cell Distribution Width 14.7 % (11.6-17.2); White Blood Count 17.8 th/mm3 (4.0-11.0)
[2018-09-25 05:17] LABS: Anion Gap 11 meq/L (5-15); Blood Urea Nitrogen 11 mg/dL (7-18); Calcium 8.1 mg/dL (8.5-10.1); Carbon Dioxide 24.4 meq/L (21.0-32.0); Chloride 107 meq/L (98-107); Glomerular Filtration Rate Greater Than 89 mL/min (>89); Glucose,Random 111 mg/dL (74-106); Potassium 3.5 meq/L (3.5-5.1); Sodium 142 meq/L (136-145)
[2018-09-25] MEDS: QUEtiapine 100 MG Tablet PO SCH ×3 (06:14→20:35)
--- NOTE | 2018-09-25 07:58 | P.PNOP ---
Subjective Interval history: POD 3 s/p ORIF right olecranon POD 6 s/p ORIF right acetabulum s/p bilateral foot fxs s/p right fibula fx s/p right knee laceration patient extubated and awake. states pain controlled. overall feels he is doing well Physical Exam Vital signs: Vital Signs 09/24/18 08:00 09/24/18 08:39 09/24/18 09:00 Temperature 98.8 F Pulse Rate 87 102 H Respiratory Rate 16 20 18 Blood Pressure 104/59 L 159/98 H Pulse Oximetry 96 99 97 09/24/18 09:15 09/24/18 10:00 09/24/18 11:00 Temperature Pulse Rate 97 H 107 H 117 H Respiratory Rate 19 14 32 H Blood Pressure 161/92 H 160/100 H 176/104 H Pulse Oximetry 100 100 09/24/18 11:10 09/24/18 12:00 09/24/18 13:00 Temperature 98.8 F Pulse Rate 105 H 97 H Respiratory Rate 24 25 H Blood Pressure 166/95 H 160/96 H Pulse Oximetry 99 97 09/24/18 14:00 09/24/18 15:00 09/24/18 15:33 Temperature Pulse Rate 99 H 102 H 95 H Respiratory Rate 36 H 33 H 28 H Blood Pressure 161/101 H 144/85 H Pulse Oximetry 100 09/24/18 16:00 09/24/18 16:13 09/24/18 16:14 Temperature 97.9 F Pulse Rate 106 H Respiratory Rate 31 H 12 14 Blood Pressure 153/103 H Pulse Oximetry 09/24/18 17:00 09/24/18 18:00 09/24/18 19:00 Temperature Pulse Rate 90 87 87 Respiratory Rate 29 H 26 H 24 Blood Pressure 148/93 H 151/90 H 160/90 H Pulse Oximetry 93 L 93 L 09/24/18 20:00 09/24/18 21:00 09/24/18 21:55 Temperature 98.9 F Pulse Rate 88 89 Respiratory Rate 44 H 34 H 22 Blood Pressure 157/90 H Pulse Oximetry 95 94 L 09/24/18 22:00 09/24/18 23:00 09/25/18 00:00 Temperature 98.7 F Pulse Rate 94 H 86 88 Respiratory Rate 30 H 22 23 Blood Pressure 145/84 H 140/84 136/81 Pulse Oximetry 94 L 94 L 95 09/25/18 01:00 09/25/18 01:18 09/25/18 02:00 Temperature Pulse Rate 84 83 Respiratory Rate 24 20 25 H Blood Pressure 130/84 133/82 Pulse Oximetry 91 L 95 09/25/18 03:00 09/25/18 04:00 09/25/18 05:00 Temperature 98.8 F Pulse Rate 85 77 81 Respiratory Rate 24 23 27 H Blood Pressure 139/86 132/81 136/86 Pulse Oximetry 94 L 93 L 94 L 09/25/18 06:00 09/25/18 07:00 Temperature Pulse Rate 77 78 Respiratory Rate 19 21 Blood Pressure 132/76 138/82 Pulse Oximetry 93 L 93 L Intake & Output 09/24/18 09/25/18 09/25/18 18:59 06:59 18:59 Intake Total 1585 / 1585 920 / 920 Output Total 2600 / 2600 850 / 850 Balance -1015 / -1015 70 / 70 Weight 83.1 kg Intake: IV 1060 / 1060 200 / 200 Precedex Inj 200 MCG In NS Inj 100 / 100 200 / 200 48 ML @ 0.2 MCG/KG/HR 5.02 mls/ hr IV.CONT TITRATE PRN Rx#: [id number] Versed Inj 100 mg In 100 ml @ 5 50 / 50 MG/HR 5 mls/hr IV.CONT TITRATE PRN Rx#:[id number] Diprivan 1000 mg/100 ml Inj 1, 60 / 60 000 mg In 100 ml @ 5 MCG/KG/MIN 2.493 mls/hr IV.CONT TITRATE PRN Rx#:[id number] NS Inj 1,000 ML @ 50 mls/hr IV. 500 / 500 CONT .Q20H [facility] Rx#:[id number] Ancef 2 GM Premix Inj 2 gm In 50 / 50 50 ml @ 100 mls/hr IV.SIG Q8H [facility] Rx#:[id number] fentaNYL 10 mcg/mL Premix Drip 300 / 300 2,500 mcg In 250 ml @ 50 MCG/HR 5 mls/hr IV.SIG TITRATE PRN Rx #:[id number] Oral 525 / 525 720 / 720 Output: Urine 600 / 600 850 / 850 Urine Amount (Catheter) 1999 Indwelling Urethral Catheter 1999 Other: Date of Last Bowel Movement 09/24/18 09/24/18 # Bowel Movements 2 Narrative: RUE: +splint. intact. NVI RLE: +CKS. dressing clean and dry. +splint. nvi LLE: +short leg splint. intact. NVI - Urinary Catheter Management Indwelling Urethral Catheter Cath placed during this visit: yes, but has since been removed by the nurse Reason for continuing: Decision to DC catheter Insertion date: 09/14/18 Insertion time: 00:00 Removal date: 09/24/18 Removal time: 14:30 Results - Labs CBC & Chem 7: 09/25/18 04:35 09/25/18 04:35 Laboratory Results - last 24 hr 09/25/18 09/25/18 04:35 04:35 WBC 17.8 H RBC 2.88 L Hgb 9.1 L Hct 26.4 L MCV 91.8 MCH 31.5 MCHC 34.3 RDW 14.7 Plt Count 614 H MPV 7.1 Neut % (Auto) 78.6 H Lymph % (Auto) 11.1 [place] % (Auto) 8.0 Eos % (Auto) 1.8 Baso % (Auto) 0.5 Neut # (Auto) 14.0 H Lymph # (Auto) 2.0 [place] # (Auto) 1.4 H Eos # (Auto) 0.3 Baso # (Auto) 0.1 WBC Differential . Differential Comment Auto diff final Sodium 142 Potassium 3.5 Chloride 107 Carbon Dioxide 24.4 Anion Gap 11 BUN 11 Creatinine 0.54 L Estimated GFR Greater than 89 Random Glucose 111 H Calcium 8.1 L - Imaging Impressions Ankle CT 09/14/18 00:00 CONCLUSION: 1. Comminuted and displaced oblique fracture of the distal fibular diaphysis. 2. Minimally displaced and impacted fracture of the distal process of the calcaneus with extension of the fracture into the calcaneocuboid joint. 3. Asymmetric widening of the tibiotalar joint suggesting partial talar dislocation. Chest X-Ray 09/14/18 00:00 CONCLUSION: No acute cardiopulmonary abnormality is identified. Elbow CT 09/14/18 00:00 CONCLUSION: 1. Comminuted displaced fracture of the proximal ulna involving both the olecranon and coronoid region. 2. Dislocated radial head. Humerus X-Ray 09/14/18 00:00 CONCLUSION: Comminuted displaced fractures of the proximal radius and ulna with surrounding soft tissue swelling. Knee CT 09/14/18 00:00 CONCLUSION: 1. No fracture is identified. 2. There is soft tissue wound/laceration along the lateral aspect of the knee with subcutaneous air. Pelvis X-Ray 09/14/18 00:00 CONCLUSION: Comminuted displaced right acetabular fracture with superior and lateral dislocation of the femoral head. Chest X-Ray 09/14/18 22:29 CONCLUSION: No acute cardiopulmonary abnormality is identified. Hip X-Ray 09/14/18 22:29 CONCLUSION: Comminuted displaced right acetabular fracture with superior and lateral migration/dislocation of the femoral head. Abdomen/Pelvis CT 09/14/18 22:55 CONCLUSION: 1. There is a small volume of acute blood products within the ileal mesentery, within the paracolic gutters, and in the dependent aspect of the pelvis. Exact etiology is uncertain and no solid organ injury. Given the blood products in the mesentery there is concern for mesenteric vascular injury although none is directly visualized. Suggest close clinical follow-up and consider follow-up abdomen and pelvis CT to evaluate for increased blood products. 2. Comminuted displaced fracture of the right superior and posterior acetabulum with superior dislocation of the femoral head. 3. Mildly displaced right lateral 10th rib fracture. Cervical Spine CT 09/14/18 22:56 CONCLUSION: 1. Possible nondisplaced fracture of the right anterior medial occipital condyle. 2. No other fracture or acute cervical spine abnormality is identified. 3. Ovoid rim calcified lesion in the left inferior neck most likely represents a rim calcified thyroid nodule. When patient condition permits suggest elective thyroid ultrasound for further evaluation. Chest CT 09/14/18 22:56 CONCLUSION: 1. Patchy airspace consolidation in the right upper lobe could represent pulmonary contusion. 2. There are nondisplaced right anterior sixth and seventh rib fractures. A few locules of pleural air are located inferiorly in the right pleural space. However, there is no significant pneumothorax. Head CT 09/14/18 22:56 CONCLUSION: No acute abnormality is identified. . Ankle X-Ray 09/15/18 00:00 CONCLUSION: No fracture is identified. There is dorsal foot soft tissue swelling. Ankle X-Ray 09/15/18 00:00 CONCLUSION: Acute displaced comminuted distal fibular diaphysis fracture, as above. The widening of the tibiotalar joint is no longer present. Ankle X-Ray 09/15/18 00:00 CONCLUSION: Transverse fracture of the distal diaphyseal portion of the fibula. There is only mildly displaced. Foot X-Ray 09/15/18 00:00 CONCLUSION: Comminuted mildly displaced fracture of the first digit distal phalanx with fracture line extension into the interphalangeal joint. Foot X-Ray 09/15/18 00:00 CONCLUSION: The calcaneus fracture documented on prior CT is not visible on this examination. No acute osseous abnormality is seen on this exam. Hip X-Ray 09/15/18 00:00 CONCLUSION: Relocation of the right femoral head. Fracture of the right acetabulum. Knee X-Ray 09/15/18 00:00 CONCLUSION: No fracture is identified. Chest X-Ray 09/15/18 06:37 CONCLUSION: ETT in good position Moderate gastric distention without nasogastric tube Pelvis X-Ray 09/17/18 00:00 CONCLUSION: Reasonable alignment in traction. Assessment and Plan - Assessment and Plan 1) right acetabular fracture dislocation with ORIF and removal of skeletal traction - POD 6 2) comminuted right proximal ulna fracture dislocation s/p ORIF - POD 3 3) right knee laceration s/p I&D and closure - POD 10 4) right fibula fracture with ankle subluxation s/p splinting - nonop 5) right foot cuboid fracture - nonop 6) left foot first toe distal phalanx fracture, fractures 1-4 metatarsal shaft, intermediated cuneiform fx - nonop -Nonweightbearing right upper extremity, right lower extremity, left lower extremity -Maintain splint to right upper extremity and right ankle and left ankle -Maintain dressing over posterior hip for 5 days then convert over to [place] every other day. May begin changing dressings sooner if drainage or disheveled -Lovenox -ortho surgeries complete at this time -patient will be non weight bearing to BLE and RUE for approx 3 months -will need extensive help and rehab -DVT prophylaxis - for DC planning when patient is stable -f/u with [facility] or [facility] in 2 weeks
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
[2018-09-25] MEDS: Escitalopram 10 MG Tablet PO SCH (08:14)
[2018-09-25] MEDS: Indomethacin 75 MG ER Capsule PO SCH (08:14)
[2018-09-25] MEDS: Enoxaparin Inj 30 MG/0.3 ML Syringe SQ SCH ×2 (08:14→20:35)
[2018-09-25] MEDS: Sodium Chloride 0.9% 2 ML Flush BID IV.FLUSH SCH ×2 (08:15→20:35)
[2018-09-25] MEDS: Lidocaine 5% Patch T-DERMAL SCH (08:38)
[2018-09-25] MEDS: Senna/Docusate Sodium 8.6/50 MG Tablet PO SCH ×2 (09:49→20:35)
[2018-09-25] MEDS ORDERED: Haloperidol Inj 5 MG/ML Ampul IV.PUSH PRN (10:32)
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
[2018-09-25] MEDS: Metoprolol Tartrate 25 MG Tablet PO SCH (20:35)
[2018-09-26] MEDS: QUEtiapine 100 MG Tablet PO SCH ×3 (06:04→20:01)
--- NOTE | 2018-09-26 06:36 | P.PNOP ---
Subjective Interval history: Resting comfortably and improving. Physical Exam Vital signs: Vital Signs 09/25/18 07:00 09/25/18 08:00 09/25/18 09:00 Temperature 98.8 F Pulse Rate 78 85 77 Respiratory Rate 21 28 H 26 H Blood Pressure 138/82 131/81 130/76 Pulse Oximetry 93 L 89 L 91 L 09/25/18 09:15 09/25/18 10:00 09/25/18 11:00 Temperature Pulse Rate 75 70 Respiratory Rate 21 21 17 Blood Pressure 128/77 120/71 Pulse Oximetry 92 L 93 L 09/25/18 12:00 09/25/18 12:55 09/25/18 13:00 Temperature 98.3 F Pulse Rate 79 81 Respiratory Rate 20 20 22 Blood Pressure 164/97 H 151/92 H Pulse Oximetry 93 L 96 09/25/18 14:00 09/25/18 15:00 09/25/18 16:00 Temperature 98.1 F Pulse Rate 75 80 90 Respiratory Rate 16 20 23 Blood Pressure 142/84 H 124/77 126/84 Pulse Oximetry 95 95 93 L 09/25/18 17:00 09/25/18 18:00 09/25/18 19:00 Temperature Pulse Rate 84 82 85 Respiratory Rate 24 13 20 Blood Pressure 157/86 H 159/86 H 150/84 H Pulse Oximetry 93 L 92 L 95 09/25/18 19:55 09/25/18 20:00 09/25/18 21:00 Temperature 98.6 F Pulse Rate 82 85 Respiratory Rate 16 17 21 Blood Pressure 147/85 H 137/83 Pulse Oximetry 94 L 94 L 95 09/25/18 23:51 09/26/18 00:00 09/26/18 04:00 Temperature 98.8 F 99.0 F Pulse Rate 78 76 Respiratory Rate 18 16 18 Blood Pressure 148/87 H 156/93 H Pulse Oximetry 98 97 Intake & Output 09/25/18 09/25/18 09/26/18 06:59 18:59 06:59 Intake Total 920 / 920 635 / 635 Output Total 850 / 850 950 / 950 Balance 70 / 70 -315 / -315 Weight 83.1 kg Intake: IV 200 / 200 35 / 35 Precedex Inj 200 MCG In NS Inj 200 / 200 35 / 35 48 ML @ 0.2 MCG/KG/HR 5.02 mls/ hr IV.CONT TITRATE PRN Rx#: [id number] Oral 720 / 720 600 / 600 Output: Urine 850 / 850 950 / 950 Other: Date of Last Bowel Movement 09/24/18 09/24/18 Narrative: Right upper extremity: Splint intact. Intact sensation distally with full extension and flexion of all fingers. Good capillary refills Right lower extremity: Clean dry dressings intact. Knee immobilizer in place with clean dry dressings over knee. Splint intact distally. Intact sensation with active plantar flexion of toes and weak dorsiflexion. Left lower extremity: No pain with hip or knee range of motion. Splint intact. Intact sensation distally. Active movement of toes - Urinary Catheter Management Indwelling Urethral Catheter Cath placed during this visit: yes, but has since been removed by the nurse Reason for continuing: Decision to DC catheter Insertion date: 09/14/18 Insertion time: 00:00 Removal date: 09/24/18 Removal time: 14:30 Results - Labs CBC & Chem 7: 09/25/18 04:35 09/25/18 04:35 Assessment and Plan - Assessment and Plan 1) right acetabular fracture dislocation with ORIF and removal of skeletal traction - POD 7 2) comminuted right proximal ulna fracture dislocation s/p ORIF - POD 4 3) right knee laceration s/p I&D and closure - POD 11 4) right fibula fracture with ankle subluxation s/p splinting - nonop 5) right foot cuboid fracture - nonop 6) left foot first toe distal phalanx fracture, fractures 1-4 metatarsal shaft, intermediated cuneiform fx - nonop X-rays ordered today of bilateral feet, right ankle, right elbow and pelvis -Nonweightbearing right upper extremity, right lower extremity, 50% weightbearing left lower extremity on heel for transfers. Nonweightbearing midfoot and toes -Maintain splint to right upper extremity and right ankle and left ankle -Daily dressing changes with [place] to right hip. Begin adding Xeroform 09/29 -Lovenox -ortho surgeries complete at this time -patient will be non weight bearing to BLE and RUE for approx 3 months -will need extensive help and rehab -DVT prophylaxis -CM for DC planning when patient is stable -f/u with [facility] or [facility] in 2 weeks
[2018-09-26] MEDS: Morphine Inj 4 MG/ML Vial IV.PUSH PRN ×3 (06:58→19:54)
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
[2018-09-26 08:11] LABS: Baso # (Auto) 0.1 th/mm3 (0.0-0.2); Baso % (Auto) 0.8 % (0.0-2.0); Eos # (Auto) 0.4 th/mm3 (0.0-0.4); Eos % (Auto) 2.4 % (0.0-4.0); Lymph # (Auto) 1.8 th/mm3 (1.0-4.8); Lymph % (Auto) 12.3 % (9.0-44.0); Mean Corpuscular HGB Conc 33.5 % (32.0-36.0); Mean Corpuscular Hemoglobin 30.9 pg (27.0-34.0); Mean Corpuscular Volume 92.3 fL (80.0-100.0); Mean Platelet Volume 6.9 fL (7.0-11.0); Mono # (Auto) 1.5 th/mm3 (0.0-0.9); Mono % (Auto) 9.8 % (0.0-8.0); Neut # (Auto) 11.2 th/mm3 (1.8-7.7); Neut % (Auto) 74.7 % (16.0-70.0); Platelet Count 707 th/mm3 (150-450); Red Blood Count 3.25 mil/mm3 (4.50-5.90); Red Cell Distribution Width 14.8 % (11.6-17.2)
[2018-09-26 08:37] LABS: Anion Gap 7 meq/L (5-15); Blood Urea Nitrogen 14 mg/dL (7-18); Calcium 8.3 mg/dL (8.5-10.1); Carbon Dioxide 27.3 meq/L (21.0-32.0); Chloride 105 meq/L (98-107); Glomerular Filtration Rate Greater Than 89 mL/min (>89); Glucose,Random 122 mg/dL (74-106); Potassium 3.6 meq/L (3.5-5.1); Sodium 139 meq/L (136-145)
[2018-09-26 09:07] LABS: Eosinophils 2 % (0-4); Lymphocytes 9 % (9-44); Monocytes 7 % (0-8); Myelocytes 1 % (0-0); Platelet Morphology Normal (Normal); RBC Morphology Normal (Normal)
[2018-09-26] MEDS: Enoxaparin Inj 30 MG/0.3 ML Syringe SQ SCH ×2 (09:17→20:02)
[2018-09-26] MEDS: Senna/Docusate Sodium 8.6/50 MG Tablet PO SCH ×2 (09:18→20:01)
[2018-09-26] MEDS: Escitalopram 10 MG Tablet PO SCH (09:18)
[2018-09-26] MEDS: Metoprolol Tartrate 25 MG Tablet PO SCH ×2 (09:18→21:30)
[2018-09-26] MEDS: Indomethacin 75 MG ER Capsule PO SCH (10:45)
[2018-09-26] MEDS: Lidocaine 5% Patch T-DERMAL SCH (10:45)
[2018-09-26] MEDS: Sodium Chloride 0.9% 2 ML Flush BID IV.FLUSH SCH ×2 (10:45→21:00)
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
--- NOTE | 2018-09-26 15:53 | XR ---
EXAM DATE: 09/26/2018 2:38 PM EST AGE/SEX: 37 years / Male INDICATIONS: Follow up pelvic fracture. CLINICAL DATA: This is the patient's subsequent encounter. Patient reports that signs and symptoms h ave been present for 2 weeks and indicates a pain score of 7/10. MEDICAL/SURGICAL HISTORY: None. . ORIF pelvis COMPARISON: [facility] – [place], PELVIS AP 1V, 09/17/2018. . FINDINGS: Right pelvic/acetabular plates in place. There is been religious of the articular curvature of the acetabulum. The femoral head and neck is intact. Left hemipelvis is intact. There are 2 lines the sac rum or symmetric. Skin mirta of the right side. CONCLUSION: Post internal fixation right acetabular fracture with normal alignment. Electronically signed by: Obie Rodriguez MD Board Certified Radiologist 09/26/2018 2:54 PM EST
--- NOTE | 2018-09-26 15:53 | XR ---
EXAM DATE: 09/26/2018 2:30 PM EST AGE/SEX: 37 years / Male INDICATIONS: Follow up right foot fracture. CLINICAL DATA: This is the patient's subsequent encounter. Patient reports that signs and symptoms h ave been present for 2 weeks and indicates a pain score of 5/10. MEDICAL/SURGICAL HISTORY: None. None. COMPARISON: [facility] – [place], FOOT LIMITED RIGHT 2V, 09/15/2018. . FINDINGS: 3 views of the foot in fiberglass splint demonstrates normal alignment of the osseous structures. No fracture seen. No radiopaque foreign bodies. Moderate degenerative changes in the tarsal row. CONCLUSION: Normal alignment of the osseous structures in splint. Electronically signed by: Obie Rodriguez MD Board Certified Radiologist 09/26/2018 2:37 PM EST
--- NOTE | 2018-09-26 15:53 | XR ---
EXAM DATE: 09/26/2018 2:31 PM EST AGE/SEX: 37 years / Male INDICATIONS: Follow up left foot fracture. CLINICAL DATA: This is the patient's subsequent encounter. Patient reports that signs and symptoms h ave been present for 2 weeks and indicates a pain score of 3/10. MEDICAL/SURGICAL HISTORY: None. None. COMPARISON: [facility], FOOT LIMITED LEFT 2V, 09/15/2018. . FINDINGS: 3 views are performed in a fiberglass splint. The comminuted fracture of the distal phalanx of the fi rst digit is similar in appearance when compared to prior 09/15/2016. There is no bridging callus or pe riosteal bone formation. Fracture lines are still discernible. No radiopaque foreign bodies. CONCLUSION: No bony fusion across the comminuted first digit distal phalangeal fracture, in splint. Electronically signed by: Obie Rodriguez MD Board Certified Radiologist 09/26/2018 2:39 PM EST
--- NOTE | 2018-09-26 15:53 | XR ---
EXAM DATE: 09/26/2018 2:34 PM EST AGE/SEX: 37 years / Male INDICATIONS: Follow up right ankle fracture. CLINICAL DATA: This is the patient's subsequent encounter. Patient reports that signs and symptoms h ave been present for 2 weeks and indicates a pain score of 5/10. MEDICAL/SURGICAL HISTORY: None. None. COMPARISON: [facility] – [place]KLE COMPLETE RIGHT MIN 3V, 09/19/2018. . FINDINGS: Overlying cast material is currently in place. This is compared to the prior examination. There has b een no change in the alignment of the fracture fragments involving the distal fibula. There continues to be good alignment at the mortise joint. No significant change compared to the prior study. CONCLUSION: No significant change in the alignment or position of the fracture fragments involving the distal tib ia compared to the prior study. Electronically signed by: Perfecto Plata MD Board Certified Radiologist 09/26/2018 2:51 PM EST
--- NOTE | 2018-09-26 15:53 | XR ---
EXAM DATE: 09/26/2018 2:33 PM EST AGE/SEX: 37 years / Male INDICATIONS: Follow up right elbow fracture. CLINICAL DATA: This is the patient's subsequent encounter. Patient reports that signs and symptoms h ave been present for 2 weeks and indicates a pain score of 5/10. MEDICAL/SURGICAL HISTORY: None. . ORIF right elbow COMPARISON: [facility], HUMERUS RIGHT 1V, 09/14/2018. . FINDINGS: 6 views of the elbow status post internal fixation of possible ulnar fracture. There there is a plate and multiple screws in place. In lateral projection, there is mandaen of alignment of the proxim al ulna/olecranon. No radiographic evidence of elbow effusion. Multiple skin mirta. CONCLUSION: Expected postoperative changes status post plate internal fixation proximal ulna. Electronically signed by: Obie Rodriguez MD Board Certified Radiologist 09/26/2018 2:41 PM EST
[2018-09-27] MEDS: Morphine Inj 4 MG/ML Vial IV.PUSH PRN ×3 (06:01→19:38)
[2018-09-27] MEDS: QUEtiapine 100 MG Tablet PO SCH ×3 (06:01→22:28)
--- NOTE | 2018-09-27 07:07 | P.PNOP ---
Subjective Interval history: Resting comfortably with no new complaints. Physical Exam Vital signs: Vital Signs 09/26/18 08:12 09/26/18 09:00 09/26/18 12:00 Temperature 98.4 F 98.2 F Pulse Rate 78 73 Respiratory Rate 18 18 18 Blood Pressure 130/77 137/78 Pulse Oximetry 92 L 95 09/26/18 16:00 09/26/18 19:00 09/26/18 20:49 Temperature 98.0 F 97.9 F Pulse Rate 74 72 Respiratory Rate 18 16 Blood Pressure 125/67 138/86 Pulse Oximetry 93 L 96 96 09/26/18 23:57 09/27/18 00:00 09/27/18 05:03 Temperature 98.3 F Pulse Rate 61 Respiratory Rate 16 18 18 Blood Pressure 129/72 Pulse Oximetry 94 L 09/27/18 06:03 Temperature Pulse Rate Respiratory Rate 17 Blood Pressure Pulse Oximetry Intake & Output 09/26/18 09/27/18 09/27/18 18:59 06:59 18:59 Intake Total 860 / 860 Output Total 810 / 810 825 / 825 Balance -810 / -810 35 / 35 Weight 93.4 kg Intake: Oral 860 / 860 Output: Urine 810 / 810 825 / 825 Other: Date of Last Bowel Movement 09/24/18 09/26/18 # Bowel Movements 0 Narrative: Right upper extremity: Splint intact. Intact sensation distally with full extension and flexion of all fingers. Good capillary refills Right lower extremity: Clean dry dressings intact. Knee immobilizer in place with clean dry dressings over knee. Splint intact distally. Intact sensation with active plantar flexion of toes and weak dorsiflexion. Left lower extremity: No pain with hip or knee range of motion. Splint intact. Intact sensation distally. Active movement of toes - Urinary Catheter Management Indwelling Urethral Catheter Cath placed during this visit: yes, but has since been removed by the nurse Reason for continuing: Decision to DC catheter Insertion date: 09/14/18 Insertion time: 00:00 Removal date: 09/24/18 Removal time: 14:30 Results - Labs CBC & Chem 7: 09/26/18 07:47 09/26/18 07:47 Laboratory Results - last 24 hr 09/26/18 09/26/18 07:47 07:47 WBC 15.0 H RBC 3.25 L Hgb 10.0 L Hct 30.0 L MCV 92.3 MCH 30.9 MCHC 33.5 RDW 14.8 Plt Count 707 H MPV 6.9 L Prelim Diff (Auto) Slide review pending Neut % (Auto) 74.7 H Lymph % (Auto) 12.3 [place] % (Auto) 9.8 H Eos % (Auto) 2.4 Baso % (Auto) 0.8 Neut # (Auto) 11.2 H Lymph # (Auto) 1.8 [place] # (Auto) 1.5 H Eos # (Auto) 0.4 Baso # (Auto) 0.1 WBC Differential Manual diff final Seg Neuts % (Manual) 77 H Band Neuts % (Manual) 4 Lymphocytes % (Manual) 9 Monocytes % (Manual) 7 Eosinophils % (Manual) 2 Myelocytes % (Man) 1 H Abs Neuts (Manual) 12.3 H Differential Comment . Platelet Estimate High H Platelet Morphology Normal RBC Morphology Normal Sodium 139 Potassium 3.6 Chloride 105 Carbon Dioxide 27.3 Anion Gap 7 BUN 14 Creatinine 0.56 L Estimated GFR Greater than 89 Random Glucose 122 H Calcium 8.3 L - Imaging Impressions Ankle X-Ray 09/26/18 00:00 CONCLUSION: No significant change in the alignment or position of the fracture fragments involving the distal tibia compared to the prior study. Elbow X-Ray 09/26/18 00:00 CONCLUSION: Expected postoperative changes status post plate internal fixation proximal ulna. Foot X-Ray 09/26/18 00:00 CONCLUSION: No bony fusion across the comminuted first digit distal phalangeal fracture, in splint. Foot X-Ray 09/26/18 00:00 CONCLUSION: Normal alignment of the osseous structures in splint. Pelvis X-Ray 09/26/18 00:00 CONCLUSION: Post internal fixation right acetabular fracture with normal alignment. Assessment and Plan - Assessment and Plan 1) right acetabular fracture dislocation with ORIF and removal of skeletal traction - POD 8 2) comminuted right proximal ulna fracture dislocation s/p ORIF - POD 5 3) right knee laceration s/p I&D and closure - POD 12 4) right fibula fracture with ankle subluxation s/p splinting - nonop 5) right foot cuboid fracture - nonop 6) left foot first toe distal phalanx fracture, fractures 1-4 metatarsal shaft, intermediated cuneiform fx - nonop X-rays show appropriate alignment of bilateral feet, right ankle and acetabulum. X-rays are unclear if the elbow is in appropriate alignment or slightly subluxed. CT will be ordered this morning -Nonweightbearing right upper extremity, right lower extremity, 50% weightbearing left lower extremity on heel for transfers. Nonweightbearing midfoot and toes -Maintain splint to right upper extremity and right ankle and left ankle -Daily dressing changes with [place] to right hip. Begin adding Xeroform 09/29 -Lovenox -ortho surgeries complete at this time -patient will be non weight bearing to BLE and RUE for approx 3 months -will need extensive help and rehab -DVT prophylaxis -CM for DC planning when patient is stable -f/u with [facility] or [facility] in 2 weeks
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
[2018-09-27] MEDS: Lidocaine 5% Patch T-DERMAL SCH (08:25)
[2018-09-27] MEDS: Enoxaparin Inj 30 MG/0.3 ML Syringe SQ SCH ×2 (08:25→22:26)
[2018-09-27] MEDS: Escitalopram 10 MG Tablet PO SCH (08:25)
[2018-09-27] MEDS: Metoprolol Tartrate 25 MG Tablet PO SCH ×2 (08:25→22:28)
[2018-09-27] MEDS: Sodium Chloride 0.9% 2 ML Flush BID IV.FLUSH SCH ×2 (08:25→22:27)
[2018-09-27] MEDS: Senna/Docusate Sodium 8.6/50 MG Tablet PO SCH ×2 (08:25→22:27)
[2018-09-27] MEDS: Indomethacin 75 MG ER Capsule PO SCH (08:25)
--- NOTE | 2018-09-27 12:32 | CT ---
EXAM DATE: 09/27/2018 10:32 AM EST AGE/SEX: 37 years / Male INDICATIONS: Post reduction. CLINICAL DATA: This is the patient's initial encounter. Patient reports that signs and symptoms have been present for 1 day and indicates a pain score of 7/10. MEDICAL/SURGICAL HISTORY: None. None. RADIATION DOSE: 13.29 CTDI (mGy) COMPARISON: [facility] – [place], CT ELBOW RIGHT W CONTRAST, 09/14/2018. . TECHNIQUE: Multiple contiguous axial images were acquired using a multi-row detector CT scanner. Mu ltiplanar reconstruction was performed in the sagittal and coronal planes. Using automated exposure control and adjustment of the mA and/or kV according to patient size, radiation dose was kept as low as reasonably achievable to obtain optimal diagnostic quality images. DICOM format image data is edith ilable electronically for review and comparison. FINDINGS: Bones: Comminuted fracture of the olecranon with plate and screws noted. Radial head demonstrates no ndisplaced fracture. There is also nondisplaced fracture of the humeral condyle. There has been signi ficant improvement of the alignment of the elbow which is near anatomic. Multiple small bony fragment s are seen. Joints: Joint effusion noted. Other: Extensive hematoma and soft tissue edema. CONCLUSION: 1. Internal fixation and reduction of multiple elbow fractures. Electronically signed by: Kash Tyler MD Board Certified Radiologist 09/27/2018 11:26 AM EST
--- NOTE | 2018-09-28 06:58 | P.PNOP ---
Subjective Interval history: Pain is controlled. CT was performed yesterday showing appropriate alignment of the right elbow Physical Exam Vital signs: Vital Signs 09/27/18 07:00 09/27/18 08:00 09/27/18 12:00 Temperature 98.4 F 98.1 F Pulse Rate 76 68 Respiratory Rate 18 18 Blood Pressure 133/78 165/95 H Pulse Oximetry 94 L 91 L 93 L 09/27/18 16:00 09/27/18 20:00 09/28/18 00:00 Temperature 98.0 F 97.9 F 97.3 F L Pulse Rate 61 93 H 78 Respiratory Rate 18 18 18 Blood Pressure 123/61 119/67 125/70 Pulse Oximetry 94 L 98 95 09/28/18 04:00 Temperature 97.3 F L Pulse Rate 65 Respiratory Rate 18 Blood Pressure 113/59 L Pulse Oximetry 95 Intake & Output 09/27/18 09/27/18 09/28/18 06:59 18:59 06:59 Intake Total 860 / 860 720 / 720 100 / 100 Output Total 825 / 825 500 / 500 250 / 250 Balance 35 / 35 220 / 220 -150 / -150 Weight 93.4 kg 98 kg Intake: Oral 860 / 860 720 / 720 100 / 100 Output: Urine 825 / 825 500 / 500 250 / 250 Other: Date of Last Bowel Movement 09/26/18 # Bowel Movements 0 6 0 Narrative: Right upper extremity: Splint intact. Intact sensation distally with full extension and flexion of all fingers. Good capillary refills Right lower extremity: Clean dry dressings intact. Knee immobilizer in place with clean dry dressings over knee. Splint intact distally. Intact sensation with active plantar flexion of toes and weak dorsiflexion. Left lower extremity: No pain with hip or knee range of motion. Splint intact. Intact sensation distally. Active movement of toes - Urinary Catheter Management Indwelling Urethral Catheter Cath placed during this visit: yes, but has since been removed by the nurse Reason for continuing: Decision to DC catheter Insertion date: 09/14/18 Insertion time: 00:00 Removal date: 09/24/18 Removal time: 14:30 Results - Labs CBC & Chem 7: 09/26/18 07:47 09/26/18 07:47 - Imaging Impressions Elbow CT 09/27/18 00:00 CONCLUSION: 1. Internal fixation and reduction of multiple elbow fractures. Assessment and Plan - Assessment and Plan 1) right acetabular fracture dislocation with ORIF and removal of skeletal traction - POD 9 2) comminuted right proximal ulna fracture dislocation s/p ORIF - POD 6 3) right knee laceration s/p I&D and closure - POD 13 4) right fibula fracture with ankle subluxation s/p splinting - nonop 5) right foot cuboid fracture - nonop 6) left foot first toe distal phalanx fracture, fractures 1-4 metatarsal shaft, intermediated cuneiform fx - nonop CT confirms appropriate alignment of the right elbow with no subluxation. Internal fixation is well seated and intact -Nonweightbearing right upper extremity , right lower extremity, 50% weightbearing left lower extremity on heel for transfers. Nonweightbearing midfoot and toes -Maintain splint to right upper extremity and right ankle and left ankle -Daily dressing changes with [place] to right hip. Begin adding Xeroform 09/29 -Lovenox -ortho surgeries complete at this time -patient will be non weight bearing to BLE and RUE for approx 3 months -will need extensive help and rehab -DVT prophylaxis -CM for DC planning when patient is stable -f/u with [facility] or [facility] in 2 weeks
[2018-09-28] MEDS: QUEtiapine 100 MG Tablet PO SCH (07:39)
[2018-09-28] MEDS: Lidocaine 5% Patch T-DERMAL SCH (08:13)
[2018-09-28] MEDS: Senna/Docusate Sodium 8.6/50 MG Tablet PO SCH ×2 (08:13→22:42)
[2018-09-28] MEDS: Escitalopram 10 MG Tablet PO SCH (08:13)
[2018-09-28] MEDS: Indomethacin 75 MG ER Capsule PO SCH (08:13)
[2018-09-28] MEDS: Enoxaparin Inj 30 MG/0.3 ML Syringe SQ SCH ×2 (08:14→22:41)
[2018-09-28] MEDS: Sodium Chloride 0.9% 2 ML Flush BID IV.FLUSH SCH ×2 (08:15→22:42)
[2018-09-28] MEDS: Metoprolol Tartrate 25 MG Tablet PO SCH ×2 (08:16→22:42)
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
[2018-09-28] MEDS ORDERED: QUEtiapine 100 MG Tablet PO SCH (09:06)
[2018-09-28] MEDS: Morphine Inj 4 MG/ML Vial IV.PUSH PRN ×2 (10:00→17:26)
[2018-09-28] MEDS: QUEtiapine 25 MG Tablet PO SCH (14:51)
[2018-09-28 20:46] VITALS: RESP 18
[2018-09-29] MEDS: QUEtiapine 25 MG Tablet PO SCH (06:42)
[2018-09-29] MEDS ORDERED: Bisacodyl 10 MG Supp RECTAL ONE (07:30)
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
[2018-09-29] MEDS: Enoxaparin Inj 30 MG/0.3 ML Syringe SQ SCH (08:54)
[2018-09-29] MEDS: Escitalopram 10 MG Tablet PO SCH (08:54)
[2018-09-29] MEDS: Senna/Docusate Sodium 8.6/50 MG Tablet PO SCH (08:54)
[2018-09-29] MEDS: Metoprolol Tartrate 25 MG Tablet PO SCH (08:54)
[2018-09-29] MEDS: Indomethacin 75 MG ER Capsule PO SCH (08:54)
[2018-09-29] MEDS: Lidocaine 5% Patch T-DERMAL SCH (08:55)
[2018-09-29] MEDS: Sodium Chloride 0.9% 2 ML Flush BID IV.FLUSH SCH (08:55)
[2018-09-29 09:09] VITALS: BP 133/71; PULSE 78; TEMP 97.8; O2SAT 95
--- NOTE | 2018-09-29 10:36 | P.PNOP ---
Subjective Interval history: Pain is controlled with no new complaints Physical Exam Vital signs: Vital Signs 09/28/18 12:37 09/28/18 16:45 09/28/18 19:20 Temperature 97.9 F 97.9 F 98.1 F Pulse Rate 68 93 H 89 Respiratory Rate 16 16 18 Blood Pressure 126/71 108/62 116/73 Pulse Oximetry 95 94 L 93 L 09/28/18 23:20 09/29/18 03:45 09/29/18 08:00 Temperature 98.1 F 97.7 F 97.8 F Pulse Rate 73 76 78 Respiratory Rate 18 18 18 Blood Pressure 115/63 110/70 133/71 Pulse Oximetry 93 L 93 L 95 Intake & Output 09/28/18 09/29/18 09/29/18 18:59 06:59 18:59 Intake Total 220 / 220 Output Total 400 / 400 Balance -180 / -180 Weight 91.7 kg Intake: Oral 220 / 220 Output: Urine 400 / 400 Other: # Voids 2 Date of Last Bowel Movement 09/27/18 09/28/18 09/28/18 # Bowel Movements 0 Narrative: Right upper extremity: Splint intact. Intact sensation distally with full extension and flexion of all fingers. Good capillary refills Right lower extremity: Clean dry dressings intact. Knee immobilizer in place with clean dry dressings over knee. Splint intact distally. Intact sensation with active plantar flexion of toes and weak dorsiflexion. Left lower extremity: No pain with hip or knee range of motion. Splint intact. Intact sensation distally. Active movement of toes - Urinary Catheter Management Indwelling Urethral Catheter Cath placed during this visit: yes, but has since been removed by the nurse Reason for continuing: Decision to DC catheter Insertion date: 09/14/18 Insertion time: 00:00 Removal date: 09/24/18 Removal time: 14:30 Results - Labs CBC & Chem 7: 09/26/18 07:47 09/26/18 07:47 Assessment and Plan - Assessment and Plan 1) right acetabular fracture dislocation with ORIF and removal of skeletal traction - POD 10 2) comminuted right proximal ulna fracture dislocation s/p ORIF - POD7 3) right knee laceration s/p I&D and closure - POD 14 4) right fibula fracture with ankle subluxation s/p splinting - nonop 5) right foot cuboid fracture - nonop 6) left foot first toe distal phalanx fracture, fractures 1-4 metatarsal shaft, intermediated cuneiform fx - nonop CT confirms appropriate alignment of the right elbow with no subluxation. Internal fixation is well seated and intact -Nonweightbearing right upper extremity , right lower extremity, 50% weightbearing left lower extremity on heel for transfers. Nonweightbearing midfoot and toes -Maintain splint to right upper extremity and right ankle and left ankle -Daily dressing changes with [place] to right hip. Begin adding Xeroform 09/29 -Lovenox -ortho surgeries complete at this time -patient will be non weight bearing to BLE and RUE for approx 3 months -will need extensive help and rehab -DVT prophylaxis -CM for DC planning when patient is stable -f/u with [facility] or [facility] in 2 weeks
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
== END 2018-09-29 13:58 | DRG 957 ==
LOC: NEPI 22:26 → EDBD 22:52 → MERGE 22:52 → NEDA 22:52 → N03 23:47 → N06 09-26 00:25
PROVIDERS: ADMIT Surgery; ATTEND Surgery
PROC: CRPPWRI (2018-09-15 08:06)
PROC: ORIFACE (2018-09-18 07:22)
PROC: ORIFELB (2018-09-22 07:33)
CPT/HCPCS: 24620; 27250; 31500; 36430; 36600; 70450; 71010; 71045; 71260; 72125; 72170; 72190; 73060; 73070; 73200; 73201; 73501; 73560; 73600; 73610; 73620; 73630; 73700; 73701; 74177; 76000; 80048; 80053; 82040; 82805; 83735; 84132; 85014; 85018; 85025; 85027; 85610; 85730; 86850; 86900; 86901; 86923; 87641; 90471; 90715; 90774; 90775; 90784; 92526; 92610; 93005; 94002; 94003; 94150; 94640; 94656; 94657; 94664; 94665; 96374; 96375; 97110; 97163; 97164; 97167; 97530; 97535; 99211; 99291; C1713; C8952; C9113; C9204; E0880; G0195; G0390; G0463; J0330; J0690; J1100; J1170; J1580; J1630; J1644; J1650; J1885; J2250; J2270; J2310; J2370; J2405; J2704; J2710; J3010; J3370; J3411; J3480; J3486; J7030; J7040; J7050; J7120; L0150; L0172; L1830; L3763; L3986; P9016; Q9967